=== PATIENT | male | born 1945 | race Caucasian/White ===

== ENCOUNTER 2022-01-02 13:08 | Outpatient (RCR) | payer MEDICARE, OTHER, SELFPAY ==
[2022-01-02 13:36] VITALS: BP 107/66; PULSE 67; RESP 18; TEMP 36.3; O2SAT 94
[2022-01-02] MEDS: LEUPROLIDE ACETATE 22.5 MG (SQ) SYRINGE SUBCUT (13:49)
--- NOTE | 2022-01-16 07:43 | ONC.NURNOTE ---
Authorization: User: Garima Smith Ellismitchellkhai Date: 09/29/21 15:08 Type: Eligibility Determination Note... Request received form [facility] for prior authorization of Tom [id number]. Patient carries Medicare as primary insurance. PEr CMS.gov LCD K45070 no prior authorization is required for Tom. Services are based on medical necessity and follows Medicare guidelines.
== END 2022-01-22 23:59 | disposition home or self-care (01) ==
LOC: CCIC 13:08
PROVIDERS: PCP Family Medicine; Visit Provider Clinical Nurse Specialist
DX: C61 Malignant neoplasm of prostate (principal)
CPT/HCPCS: 96372; 96401; J9217

== ENCOUNTER 2022-03-16 13:50 | Outpatient (CLI) | payer MEDICARE, OTHER, SELFPAY ==
[2022-03-16 10:24] LABS: Albumin* 3.9 g/dL (3.3-5.0)
[2022-03-16 10:25] LABS: Chloride* 105 mmol/L (96-114); Potassium* 3.6 mmol/L (3.6-5.1); Sodium* 139 mmol/L (135-149)
[2022-03-16 10:27] LABS: Aspartate Amino Transferase* 27 U/L (12-35); Bilirubin Total* 0.8 mg/dL (0.1-1.5); Blood Urea Nitrogen* 25 mg/dL (7-30); Carbon Dioxide* 25 mmol/L (20-32); Cholesterol* 105 mg/dL (90-199); Estimated Glomerular Filt Rate 78 ml/min; Total Protein* 6.7 g/dL (6.0-8.3)
[2022-03-16 10:28] LABS: Alanine Aminotransferase* 22 U/L (4-50); Alkaline Phosphatase* 57 U/L (40-150); Calcium* 9.4 mg/dL (8.4-10.6); Glucose* 113 mg/dL (60-115); HDL Cholesterol* 40 mg/dL (>=40); LDL Cholesterol Calculated 41 mg/dL (<100); Triglycerides* 119 mg/dL (40-149)
[2022-03-16 11:02] LABS: PSA Screen* < 0.06 ng/mL (0.10-4.00)
== END 2022-03-16 13:51 | disposition home or self-care (01) ==
PROVIDERS: PCP Family Medicine; Visit Provider Family Medicine
DX: Z00.00 Encounter for general adult medical examination without abnormal findings (principal); E78.5 Hyperlipidemia, unspecified; E03.9 Hypothyroidism, unspecified; N40.0 Benign prostatic hyperplasia without lower urinary tract symptoms; C61 Malignant neoplasm of prostate; I10 Essential (primary) hypertension; R73.01 Impaired fasting glucose
CPT/HCPCS: 36415; 80053; 80061; 84153; 84403; 84443

== ENCOUNTER 2022-09-18 09:43 | Emergency (ER) | payer MEDICARE, OTHER, SELFPAY ==
[2022-09-18 09:49] VITALS: BP 161/91; PULSE 76; RESP 18; TEMP 36.2; O2SAT 96; BMI 31.3
--- NOTE | 2022-09-18 10:37 | ED_ITS ---
HPI - General Adult General Chief complaint: Extremity Pain/Injury, Upper Stated complaint: R hand pain Time Seen by Provider: 09/18/22 09:50 History of Present Illness HPI narrative: This 77-year-old male comes in reporting pain, erythema, and swelling in his right wrist and hand. This began 3 days ago and has worsened since then. The erythema and swelling became more prominent just today. He does not report any injury event. He does have a remote history of gout and states that he has been taking allopurinol for more than 20 years. He has not had any flare-up of gout for a long time. Related Data Home Medications Medication Instructions Recorded Confirmed clobetasol 0.05 % topical cream 1 applic topical PRN PRN 12/29/21 06/06/22 diphenhydramine 25 1 tab PO HS 12/29/21 06/06/22 mg-acetaminophen 500 mg tablet Calcium and Vitamin D 01/02/22 06/06/22 fish oil PO 02/07/22 06/06/22 leuprolide (3 month) subcut 02/07/22 06/06/22 diphenhydramine 25 1 tab PO .hs PRN 03/21/22 06/06/22 mg-acetaminophen 500 mg tablet (Tylenol PM Extra Strength) Previous Rx's Medication Instructions Recorded allopurinol 300 mg tablet 300 mg PO .QD #90 tabs 03/22/22 aspirin 81 mg tablet,delayed 81 mg PO DAILY #90 tabs 03/22/22 release atenolol 25 mg tablet 25 mg PO DAILY #90 tabs 03/22/22 levothyroxine 100 mcg tablet 100 mcg PO DAILY #90 tabs 03/22/22 (Synthroid) rosuvastatin 20 mg tablet 20 mg PO DAILY #90 tabs 03/22/22 tamsulosin 0.4 mg capsule 0.8 mg PO DAILY #180 caps 03/22/22 hydrocodone 5 mg-acetaminophen 325 1 tab PO Q4-6H PRN pain #15 tabs 09/18/22 mg tablet methylprednisolone 4 mg tablets in See Rx Instructions PO .COMPLEX 09/18/22 a dose pack (Medrol (Antonio)) #21 ea Allergies Allergy/AdvReac Type Severity Reaction Status Date / Time No Known Drug Allergies Allergy Verified 06/06/22 11:17 Review of Systems Status of ROS: Reports: 10 or more systems reviewed and unremarkable except as noted in History and below Narrative: Constitutional: No fevers, no weight gain or loss. Eyes: No discharge. No vision changes. HENT: No congestion, no sore throat, no ear pain. Cardiovascular: No chest pain, no palpitations. Respiratory: No shortness of breath, no wheezes, no cough. Gastrointestinal: No abdominal pain, no vomiting, no diarrhea. Genitourinary: No dysuria, no hematuria. Musculoskeletal: Normal range of motion. Right hand pain and swelling. Pain is worse with movement of his fingers and wrist and minimal when remaining still. Skin: No rashes, no pruritis. Neurological: No dizziness, weakness, sensory change, speech change. Endo/Heme/Allergies: No bruising or bleeding. No polydipsia. Pysch: no suicidality, no anxiety, no insomnia. All other systems reviewed and are negative. [facility] Medical History (Updated 09/18/22 @ 10:44 by Morteza Guevara MD) History of adenomatous polyp of colon ?Z86.010 - Personal history of colonic polyps (ICD-10) History of carotid atherosclerosis ?Z86.79 - Personal history of other diseases of the circulatory system (ICD- 10) Surgical History (Updated 01/24/22 @ 10:20 by Dayna Pabon) History of carpal tunnel release ?Z98.890 - Other specified postprocedural states (ICD-10) History of cholecystectomy ?Z90.49 - Acquired absence of other specified parts of digestive tract (ICD- 10) History of colonoscopy with polypectomy ?Z98.890 - Other specified postprocedural states (ICD-10) ?Z86.010 - Personal history of colonic polyps (ICD-10) History of inguinal hernia repair ?Z98.890 - Other specified postprocedural states (ICD-10) ?Z87.19 - Personal history of other diseases of the digestive system (ICD-10) History of tonsillectomy ?Z90.89 - Acquired absence of other organs (ICD-10) Social History (Updated 02/07/22 @ 12:02 by Adrian Haskins MD) Narrative: Health care directive on file- health care directive completed on 04/08/21, reviewed and sent for scanning to medical record on 04/15/21 SOCIAL HISTORY: . Two children. 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 Minimally sexually active. He walks 4 days per week for exercise. HABITS: No tobacco or recreational drug use. Alcohol use is about 2-3 drinks per week. FAMILY HISTORY: Unchanged. Father with stroke. Mother with bile duct cancer. Grandmother with heart disease. Smoking Status: Never smoker Little interest or pleasure in doing things: not at all Feeling down, depressed, or hopeless: not at all Exam Narrative: Exam Narrative: Constitutional: Well-developed, well-nourished, no acute distress. HEENT: Normocephalic, atraumatic. Neck: Normal range of motion. Nontender. Supple. Heart: Regular. No murmurs. Normal rate. Intact distal pulses. Lungs: Clear to auscultation. No chest discomfort. No wheezes, rhonchi, or rales. Abdomen: Normal bowel sounds. Nontender. No rebound tenderness. Genitalia: Deferred. Back: No midline tenderness. Normal range of motion. Extremities: Right hand and wrist has erythema with swelling. Distinct pain with movement of these joints. Skin: Intact. No rash. Warm. No erythema or pallor. Neurologic: No altered sensation. No weakness. Alert and oriented. Psychiatric: No suicidality. No anxiety or depression. No insomnia. Nursing notes and vitals signs are reviewed. Const: Vital Signs, click to edit/add: Vital Signs - 24 hr 09/18/22 09:49 Temperature 97.1 F L Pulse Rate [Right Pulse Oximeter] 76 Respiratory Rate 18 Blood Pressure [Le ft Upper Arm] 161/91 H Pulse Oximetry 96 Oxygen Delivery Me thod Room Air Course Vital Signs Vital signs: Initial Vital Signs Temperature 97.1 F L 09/18/22 09:49 Temperature Source Temporal Artery Scan 09/18/22 09:49 Pulse Rate 76 09/18/22 09:49 Respiratory Rate 18 09/18/22 09:49 Blood Pressure 161/91 H 09/18/22 09:49 Blood Pressure Mean 114 09/18/22 09:49 Blood Pressure Position Sitting 09/18/22 09:49 Pulse Oximetry 96 09/18/22 09:49 Oxygen Delivery Method Room Air 09/18/22 09:49 Vital Signs Temperature 97.1 F L 09/18/22 09:49 Pulse Rate 76 03/27/23 09:49 Respiratory Rate 18 09/18/22 09:49 Blood Pressure 161/91 H 09/18/22 09:49 Pulse Oximetry 96 09/18/22 09:49 Oxygen Delivery Method Room Air 09/18/22 09:49 Temperature 97.1 F L 09/18/22 09:49 Pulse Rate 76 09/18/22 09:49 Respiratory Rate 18 09/18/22 09:49 Blood Pressure 161/91 H 09/18/22 09:49 Pulse Oximetry 96 09/18/22 09:49 Oxygen Delivery Method Room Air 09/18/22 09:49 Medical Decision Making MDM Narrative Medical decision making narrative: This patient comes in with pain and swelling with redness in his right wrist and hand. He has a history of gout and his symptoms today are most suspicious for a flare-up of gout. I did discuss the possibility of a cellulitis also. I also described lab and imaging options which were declined in a process of shared decision making. His symptoms are most likely a flare-up of gout and thus he received prescription for Medrol Dosepak and [place]. I did encourage him to continue with allopurinol and use ibuprofen also as needed and directed. I also describe signs and symptoms that would be more suspicious for a cellulitis at which time he should return for further evaluation and treatment. Discharge Plan Discharge Clinical Impression: Gout Patient Disposition: Home, Self-Care Condition: Stable Additional Instructions: Take medication as prescribed and needed. Follow up with MD or return if not improving or worsening symptoms happen. Prescriptions: New hydrocodone-acetaminophen 5-325 mg tablet 1 tab PO Q4-6H PRN (Reason: pain) Qty: 15 0RF methylprednisolone [Medrol (Antonio)] 4 mg tablets,dose pack See Rx Instructions .ROUTE .COMPLEX Qty: 21 0RF Rx Instructions: orally per package directions No Action diphenhydramine-acetaminophen [Tylenol PM Extra Strength] 25-500 mg tablet 1 tab PO .hs PRN fish oil PO leuprolide (3 month) subcut clobetasol 0.05 % cream 1 applic TOPICAL PRN PRN diphenhydramine-acetaminophen 25-500 mg tablet 1 tab PO HS Calcium and Vitamin D allopurinol 300 mg tablet 300 mg PO .QD Qty: 90 3RF aspirin 81 mg tablet,delayed release (DR/EC) 81 mg PO DAILY Qty: 90 3RF atenolol 25 mg tablet 25 mg PO DAILY Qty: 90 3RF rosuvastatin 20 mg tablet 20 mg PO DAILY Qty: 90 3RF levothyroxine [Synthroid] 100 mcg tablet 100 mcg PO DAILY Qty: 90 3RF tamsulosin 0.4 mg capsule 0.8 mg PO DAILY Qty: 180 3RF Follow Up/Referrals: Adrian Haskins MD [Primary Care Provider] - Stand Alone Forms: [facility] Info Instructions
[2022-09-18 10:58] VITALS: BP 161/91; PULSE 76; RESP 18; TEMP 36.2
== END 2022-09-18 10:58 | disposition home or self-care (01) ==
LOC: ED 10:44
PROVIDERS: Emergency Provider Emergency Medicine Emergency Medical Services; PCP Family Medicine
DX: M10.9 Gout, unspecified (principal)
CPT/HCPCS: 99283; 99284

== ENCOUNTER 2022-09-22 11:00 | Outpatient (RCR) | payer MEDICARE, OTHER, SELFPAY ==
[2022-03-28] MEDS: LEUPROLIDE ACETATE 22.5 MG (SQ) SYRINGE SUBCUT (11:41)
[2022-04-28 11:49] LABS: PSA Diagnostic* < 0.06 ng/mL (0.10-4.00)
--- NOTE | 2022-05-17 14:31 | ONC.NURNOTE ---
Dx: Prostate cancer
[2022-06-29 13:31] VITALS: BP 168/71; PULSE 58; RESP 16; TEMP 35; O2SAT 97
[2022-06-29] MEDS: LEUPROLIDE ACETATE 22.5 MG (SQ) SYRINGE SUBCUT (13:48)
[2022-09-07 10:01] LABS: PSA Diagnostic* < 0.06 ng/mL (0.10-4.00)
--- NOTE | 2022-09-13 17:02 | ONC.PROVNOTE ---
[facility] Provider Note Clinic Note Narrative: Treatment plan: Eligard 22.5mg subQ every 3 months Mr. Guy follows with [facility], Dr. Arcadio Enciso, for medical management of prostate cancer. Our clinic received orders for Mr. Guy to receive his next dose of eligard 22.5mg subQ injection on 09/22/22. I have entered order into EHR on behalf of Dr. Enciso based on faxed order for Mr. Guy. This will be his 4th dose, original dose given 12/2021.
[2022-09-22] MEDS: LEUPROLIDE ACETATE 22.5 MG (SQ) SYRINGE SUBCUT (11:25)
== END 2022-09-24 23:59 | disposition home or self-care (01) ==
LOC: CCIC 11:00
PROVIDERS: PCP Family Medicine; Referring Provider Family Medicine; Visit Provider Clinical Nurse Specialist
DX: C61 Malignant neoplasm of prostate (principal); Z79.818 Long term (current) use of other agents affecting estrogen receptors and estrogen levels
CPT/HCPCS: 36415; 84153; 84270; 84402; 84403; 96401; J9217

== ENCOUNTER 2022-09-29 10:55 | Outpatient (CLI) | payer MEDICARE, OTHER, SELFPAY | END 2022-09-29 10:56 | disposition home or self-care (01) | LOC: NFLDREF 09-30 08:08 | PROVIDERS: PCP Family Medicine; Referring Provider Family Medicine; Visit Provider Family Medicine | DX: M10.9 Gout, unspecified (principal) | CPT/HCPCS: 84550 ==

== ENCOUNTER 2022-12-28 13:57 | Outpatient (CLI) | payer MEDICARE, OTHER, SELFPAY ==
--- NOTE | 2022-12-28 14:00 | CRLHL7_ITS ---
For Patients: As a result of the Century Cures Act, medical imaging exams and procedure reports are released immediately into your electronic medical record. You may view this report before your referring provider. If you have questions, please contact your health care provider. DXA BONE MINERAL DENSITY STUDY Current height (in): 67.0. Weight (lb): 195.0. Menopause age: N/A Ethnicity: White. Reason for exam: History of prostate cancer. 1. Have you had a previous hip or vertebral fracture? No. 2. Have you had any fractures during your adult life which did not result from significant trauma (e.g., auto accident)? No. 3. Did either of your parents have a hip fracture? No. 4. Do you smoke? No. 5. Have you ever taken Glucocorticoids? No. 6. Do you have rheumatoid arthritis? No. 7. Do you have secondary osteoporosis? No. 8. Do you drink 3 or more alcoholic drinks per day? No. 9. Are you being treated for osteoporosis? No. 10. Have you ever taken any of the following medications: Actonel, Evista, Fosamax, Miacalcin, Reclast, Boniva, Forteo, HRT (i.e. estrogen/hormone therapy), Protelos, Prolia, Vitamin D, Calcium, other ??? please specify. ANSWER: Yes, vitamin D, calcium. 11. Do you have any of the following medical conditions: Anorexia or bulimia, asthma or emphysema, end stage renal disease, hyperparathyroidism, any seizure disorders, cancer, inflammatory bowel diseases, hysterectomy, other ??? please specify. ANSWER: Yes, cancer. 12. What was your maximum height (inches)? 68. 13. Do you perform weight bearing exercise regularly? Yes. 14. Do you regularly consume dairy products? Yes. 15. Do you drink caffeinated beverages? Yes. TECHNIQUE: Bone mineral density study was performed using the [employer]. FINDINGS: The results of the study expressed as bone mineral density (BMD) are as follows: Lumbar spine L1 to L4: BMD: 0.862 g/cm2. T-score: -2.1. Z-score: -1.0. Neck Left: BMD: 0.637 g/cm2. T-score: -2.2. Z-score: -0.7. Right: BMD: 0.613 g/cm2. T-score: -2.3. Z-score: -0.9. Total Left: BMD: 0.863 g/cm2. T-score: -1.1. Z-score: -0.1. Right: BMD: 0.835 g/cm2. T-score: -1.3. Z-score: -0.3. IMPRESSION: Osteopenia. *Comparison exams done prior to 11/2019 were performed on different unit, [employer]. COMPARISON: Compared with scan of 10/06/2021, the bone mineral density has decreased by 3.6 percent at the spine and decreased by 4.1 percent at the hip. FRAX 10-year Fracture Risk Major Osteoporotic Fracture: 9.9 percent Hip Fracture: 4.0 percent Reported Risk Factors: [place] () Neck BMD = 0.613, BMI = 30.5 Eliseo Fuller M.D. Diagnostic Radiologist [email or web address] Transcribed: 4:18 pm DW/Dictated by: Eliseo Fuller MD @ 12/28/2022 3:10:00 PM (Electronically Signed)
== END 2022-12-28 13:58 | disposition home or self-care (01) ==
LOC: RAD 13:58
PROVIDERS: PCP Family Medicine; Visit Provider Nurse Practitioner
DX: M81.0 Age-related osteoporosis without current pathological fracture (principal); M85.89 Other specified disorders of bone density and structure, multiple sites
CPT/HCPCS: 77080

== ENCOUNTER 2023-01-17 09:30 | Outpatient (RCR) | payer MEDICARE, OTHER, SELFPAY ==
--- NOTE | 2022-10-17 13:46 | URNOTE ---
Received request for prior authorization for Tom ([id number]). Pt has medicare primary. Prior authorization is not required as services are based on medical necessity and follow medicare guidelines.
[2022-12-19 10:11] VITALS: BP 121/77; PULSE 63; RESP 18; TEMP 35.9; O2SAT 95
[2023-01-17 10:35] LABS: PSA Diagnostic* < 0.06 ng/mL (0.10-4.00)
== END 2023-06-17 23:59 | disposition home or self-care (01) ==
LOC: CCIC 09:30
PROVIDERS: Nurse Practitioner; PCP Family Medicine; Referring Provider Family Medicine; Visit Provider Clinical Nurse Specialist
DX: C61 Malignant neoplasm of prostate (principal)
CPT/HCPCS: 36415; 84153; 96401; J9217

== ENCOUNTER 2023-03-22 07:31 | Outpatient (CLI) | payer MEDICARE, OTHER, SELFPAY | END 2023-03-22 07:32 | disposition home or self-care (01) | LOC: NFLDREF 03-23 10:02 | PROVIDERS: PCP Family Medicine; Referring Provider Family Medicine; Visit Provider Family Medicine | DX: E78.5 Hyperlipidemia, unspecified (principal); E03.9 Hypothyroidism, unspecified; I10 Essential (primary) hypertension | CPT/HCPCS: 80053; 80061; 84443 ==

== ENCOUNTER 2023-07-11 09:26 | Outpatient (RCR) | payer MEDICARE, OTHER, SELFPAY ==
[2023-07-11 10:53] LABS: PSA Diagnostic* < 0.06 ng/mL (0.10-4.00)
[2023-07-12 15:44] LABS: Testosterone, Adult Male <3 ng/dL (300-720)
== END 2024-01-07 23:59 | disposition home or self-care (01) ==
LOC: CCIC 09:26
PROVIDERS: PCP Family Medicine; Referring Provider Family Medicine; Visit Provider Clinical Nurse Specialist
DX: C61 Malignant neoplasm of prostate (principal)
CPT/HCPCS: 36415; 84153; 84403

== ENCOUNTER 2023-08-17 22:25 | Inpatient (IN) | payer MEDICARE, OTHER, SELFPAY ==
[2023-08-17 22:34] VITALS: BP 165/86; PULSE 102; RESP 24; TEMP 38.4; O2SAT 92; BMI 31.3
[2023-08-17 22:43] VITALS: O2SAT 96
--- NOTE | 2023-08-17 23:10 | XR_ITS ---
Patient: ASA PADILLA Facility:?[facility] Patient ID:?[id number] Site Patient ID:?[id number]. Site :?[id number] Study:?XRay-Chest PCXR-08/17/2023 11:33:43 PM Ordering Physician:REJI Final Report: INDICATION: Shortness of breath. COMPARISON: None. FINDINGS: A portable AP view of the chest was obtained. The cardiac silhouette and pulmonary vasculature are within normal limits. There is atelectasis or scarring in the left lung base. The lungs otherwise are clear. There is a large hiatal hernia. IMPRESSION: No evidence of acute pulmonary disease. Dictated by Shola Hendrix MD @ 08/18/2023 5:57:36 PM Signed by:?Shola Hendrix MD @08/18/2023 5:57:36 PM (Electronic Signature)
[2023-08-17 23:12] VITALS: PULSE 92; O2SAT 96
[2023-08-17 23:24] LABS: PCR FLU A Negative PCR FLU A (Negative); PCR FLU B Negative PCR FLU B (Negative); PCR RSV Negative PCR RSV (Negative); SARS PCR* Negative SARS-CoV-2 (Negative)
[2023-08-17 23:30] VITALS: PULSE 95; O2SAT 93
--- NOTE | 2023-08-17 23:31 | ED.SOB ---
HPI - SOB/Dyspnea General Chief Complaint: Shortness of Breath/Dyspnea Stated Complaint: shortness of breath Time Seen by Provider: 08/17/23 22:42 History of Present Illness HPI Narrative: Patient is a 78-year-old gentleman who was at a green party tonight when he developed the sudden onset of shortness of breath and chills. He describes no chest pain orthopnea PND nausea or vomiting. He was troubled by his shortness of breath as he has no underlying lung disease. He presented to the emergency room and was found to have low oxygen saturation in the low 90s. Staff to place him on oxygen per nasal cannula and he does feel better. He has otherwise not been sick or had any sick contacts. He states that he is now feeling better. He does have a temperature of a 101.1? upon arrival. Related Data Home Medications Medication Instructions Recorded Confirmed clobetasol 0.05 % topical cream 1 applic topical PRN PRN 12/29/21 08/16/23 Calcium and Vitamin D 1 tab PO BID 01/02/22 08/16/23 fish oil 2 cap PO DAILY 02/07/22 08/16/23 multivitamin 1 tab PO QDAY 10/03/22 08/16/23 ginseng 100 mg capsule 2,000 mg PO QDAY 03/14/23 08/16/23 Previous Rx's Medication Instructions Recorded allopurinol 300 mg tablet 300 mg PO DAILY #90 tabs 03/27/23 levothyroxine 100 mcg tablet 100 mcg PO DAILY #90 tabs 03/27/23 (Synthroid) metoprolol succinate 25 mg 25 mg PO QDAY #90 tabs 03/27/23 tablet,extended release 24 hr rosuvastatin 20 mg tablet 20 mg PO DAILY #90 tabs 03/27/23 tamsulosin 0.4 mg capsule 0.8 mg (2 x 0.4 mg) PO DAILY #180 03/27/23 caps metoprolol succinate 25 mg 25 mg PO QDAY #30 tabs 04/11/23 tablet,extended release 24 hr aspirin 81 mg tablet,delayed 81 mg PO DAILY #90 tabs 04/16/23 release Allergies Allergy/AdvReac Type Severity Reaction Status Date / Time No Known Drug Allergies Allergy Verified 08/17/23 22:34 Review of Systems Status of ROS: Reports: 10 or more systems reviewed and unremarkable except as noted in History and below [facility] Medical History History of carotid atherosclerosis ?Z86.79 - Personal history of other diseases of the circulatory system (ICD-10) History of adenomatous polyp of colon ?Z86.010 - Personal history of colonic polyps (ICD-10) Surgical History History of tonsillectomy ?Z90.89 - Acquired absence of other organs (ICD-10) History of inguinal hernia repair ?Z98.890 - Other specified postprocedural states (ICD-10) ?Z87.19 - Personal history of other diseases of the digestive system (ICD-10) History of colonoscopy with polypectomy ?Z98.890 - Other specified postprocedural states (ICD-10) ?Z86.010 - Personal history of colonic polyps (ICD-10) History of cholecystectomy ?Z90.49 - Acquired absence of other specified parts of digestive tract (ICD-10) History of carpal tunnel release ?Z98.890 - Other specified postprocedural states (ICD-10) Social History Narrative: Health care directive on file- health care directive completed on 04/08/21, reviewed and sent for scanning to medical record on 04/15/21 SOCIAL HISTORY: . Two children. 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 Minimally sexually active. He walks 4 days per week for exercise. HABITS: No tobacco or recreational drug use. Alcohol use is about 2-3 drinks per week. FAMILY HISTORY: Unchanged. Father with stroke. Mother with bile duct cancer. Grandmother with heart disease. What is your current living situation?: I presently have a place to live Problems where you live: no known problems In the past 12 months, utilities in danger of being shut off: no In past 12 months, lack of transportation kept you from medical appts, meetings, work, or getting things needed for daily living: no In the past 12 mos, have been you worried that your food would run out before you had money to buy more?: never true In the past 12 mos, the food you bought just didn't last and you didn't have money to buy more?: never true Smoking Status: Never smoker Do you use any of these nicotine containing products: None Second hand tobacco smoke exposure: No How often do you have a drink containing alcohol: never AUDIT-C Alcohol total score: 0 Non-prescribed substance use: denies use How often does anyone, including family, friends and others, physically hurt you: never How often does anyone, including family, friends and others, insult or talk down to you: never How often does anyone, including family, friends and others, threaten you with harm: never How often does anyone, including family, friends and others, scream or curse at you: never Little interest or pleasure in doing things: not at all Feeling down, depressed, or hopeless: not at all service: No Exam Narrative: Exam Narrative: EXAM GENERAL: Patient appears comfortable and well. EYES: No scleral icterus. LYMPH: No supraclavicular or cervical lymphadenopathy. SKIN: Visible skin seen during exam normal or with benign process only. EXT: No dependent lower extremity pedal edema. HEART: Regular rate and rhythm with no murmurs, rubs, or gallops. LUNGS: Clear to auscultation bilaterally with no crackles or wheezes. ABD: Soft, non tender, non distended. PSYCH: Good eye contact, speech is not pressured. Const: Vital Signs, click to edit/add: Vital Signs - 24 hr 08/17/23 22:34 08/17/23 22:43 08/17/23 22:43 Temperature 101.1 F H Pulse Rate Pulse Rate [Right Pulse Oximeter] 102 H Respiratory Rate 24 Blood Pressure Blood Pressure [Ri t Upper Arm] 165/86 H Pulse Oximetry 92 96 96 Oxygen Delivery Me thod Room Air Nasal Cannula Oxygen Flow Rate 3 08/17/23 23:12 08/17/23 23:30 08/17/23 23:32 Temperature Pulse Rate 92 95 92 Pulse Rate [Right Pulse Oximeter] Respiratory Rate Blood Pressure 146/80 H Blood Pressure [Ri t Upper Arm] Pulse Oximetry 96 93 94 Oxygen Delivery Me thod Nasal Cannula Oxygen Flow Rate 2 08/18/23 00:00 08/18/23 00:02 08/18/23 00:03 Temperature Pulse Rate 97 96 95 Pulse Rate [Right Pulse Oximeter] Respiratory Rate Blood Pressure 141/65 H Blood Pressure [Ri ght Upper Arm] Pulse Oximetry 92 92 93 Oxygen Delivery Me thod Nasal Cannula Oxygen Flow Rate 2 08/18/23 00:30 08/18/23 00:32 08/18/23 00:35 Temperature 100 F H Pulse Rate 95 95 Pulse Rate [Right Pulse Oximeter] Respiratory Rate Blood Pressure 127/70 Blood Pressure [Ri ght Upper Arm] Pulse Oximetry 91 91 Oxygen Delivery Me thod Oxygen Flow Rate 08/18/23 01:30 08/18/23 01:38 Temperature 100 F H Pulse Rate 90 Pulse Rate [Right Pulse Oximeter] Respiratory Rate 22 Blood Pressure 135/78 Blood Pressure [Ri ght Upper Arm] Pulse Oximetry 93 Oxygen Delivery Me thod Oxygen Flow Rate Course Course ED Course: Patient seen examined. EKG shows no acute abnormalities upon my review. Chest x-ray upon my review is normal. Viral swabs are negative for acute infection with COVID influenza or RSV. Lab work is pending. Will be giving him a DuoNeb. Vital Signs Vital signs: Initial Vital Signs Temperature 101.1 F H 08/17/23 22:34 Temperature Source Temporal Artery Scan 08/17/23 22:34 Pulse Rate 102 H 08/17/23 22:34 Pulse Rhythm Regular 08/17/23 22:34 Pulse Strength 3+ Normal 08/17/23 22:34 Respiratory Rate 24 08/17/23 22:34 Blood Pressure 165/86 H 08/17/23 22:34 Blood Pressure Mean 112 H 08/17/23 22:34 Blood Pressure Position Supine 08/17/23 22:34 Pulse Oximetry 92 08/17/23 22:34 Oxygen Delivery Method Room Air 08/17/23 22:34 Vital Signs Temperature 101.1 F H 08/17/23 22:34 Pulse Rate 102 H 08/17/23 22:34 Respiratory Rate 24 08/17/23 22:34 Blood Pressure 165/86 H 08/17/23 22:34 Pulse Oximetry 92 08/17/23 22:34 Oxygen Delivery Method Room Air 08/17/23 22:34 Temperature 100 F H 08/18/23 01:38 Pulse Rate 90 08/18/23 01:30 Respiratory Rate 22 08/18/23 01:30 Blood Pressure 135/78 08/18/23 01:30 Pulse Oximetry 93 08/18/23 01:30 Oxygen Delivery Method Nasal Cannula 08/18/23 00:00 Oxygen Flow Rate 2 08/18/23 00:00 Medications Administered Medications: Generic Name Dose Route Start Last Admin Trade Name Lisa PRN Reason Stop Dose Admin Acetaminophen 1,000 mg 08/18/23 00:02 08/18/23 00:09 Acetaminophen 500 Mg Tablet PO 08/18/23 00:03 1,000 mg ONCE ONE Administration Albuterol/Ipratropium 1 neb 08/17/23 23:30 08/17/23 23:38 Iprat-Albut 0.5-2.5 Mg/3 Ml Neb IH 08/17/23 23:31 1 neb ONCE ONE Administration Sodium Chloride 1,000 mls @ 1,000 mls/hr 08/18/23 00:27 08/18/23 01:33 0.9 % Sodium Chloride 1000 Ml IV 08/18/23 01:26 Infused .Q1H VAIBHAV Infusion Piperacillin Sod/Tazobactam 100 mls @ 200 mls/hr 08/18/23 00:34 08/18/23 01:38 Sod 3.375 gm/ Sodium Chloride IVPB 08/18/23 00:35 Infused ONCE ONE Infusion Potassium Chloride 20 meq 08/18/23 00:17 08/18/23 00:35 Potassium Chloride 10 Meq Capsule Er PO 08/18/23 00:18 20 meq ONCE ONE Administration MDM - SOB/Dyspnea MDM Narrative Medical decision making narrative: Patient is a 78-year-old gentleman who developed the abrupt onset of fevers chills and shortness of breath. Came to the emergency room with a pulse of roughly 100 temperature of 101?. He had an EKG showing no acute ST or T-wave changes. He did have an elevated D-dimer and I did do a follow-up CT of the chest PE protocol which was negative for pulmonary embolism as well as pneumonia. Because of his fever I did culture his blood. Urine was unremarkable. Lyme the rest his laboratory studies looked reasonable with the exception of a troponin of 0.33. I did call and discuss the case with Cardiology they did not recommend any medication changes or transfer but simply to place the patient on telemetry treat his fever and trend his troponin. This time cares transferred to the hospitalist of note I did begin replacement of his mild hypokalemia with oral potassium. Differential diagnosis includes but not limited to sepsis pneumonia urinary tract infection meningitis cellulitis abscess non STEMI Lab Data Labs: Lab Results 08/17/23 08/17/23 08/17/23 Range/Units 22:41 23:10 23:27 WBC 4.61 (4.50-11.00) K/uL RBC 4.34 (4.30-5.90) m/uL Hgb 13.6 (13.5-17.5) gm/dL Hct 39.8 (37.0-53.0) % MCV 92 (80-100) fL MCH 31 (26-34) pg MCHC 34 (32-36) gm/dL RDW Coeff of Russ 13.4 (11.5-15.5) % Plt Count 151 (140-440) K/uL Neut % (Auto) 95.5 H (42.0-72.0) % Lymph % (Auto) 2.8 L (20-44) % [place] % (Auto) 0.4 (0.0-11.0) % Eos % (Auto) 0.2 (0.0-7.0) % Baso % (Auto) 0.2 (0.0-3.0) % Neut # (Auto) 4.40 (1.7-7.0) K/uL Lymph # (Auto) 0.10 L (0.90-2.90) K/uL [place] # (Auto) 0.00 (0.00-0.90) K/UL Eos # (Auto) 0.01 (0.00-0.50) K/uL Baso # (Auto) 0.01 (0.00-0.30) K/uL Abs Immat Gran (auto) 0.04 (0.00-0.30) K/uL Imm/Tot Granulo (auto) 0.9 % D-Dimer Quant (PE/DVT) 2.32 H (0.00-0.50) ug/ml Sodium 136 (135-149) mmol/L Potassium 2.9 L* (3.6-5.1) mmol/L Chloride 106 (96-114) mmol/L Carbon Dioxide 19 L (20-32) mmol/L Anion Gap 11 (7-15) mEq/L BUN 24 (7-30) mg/dL Creatinine 0.9 (0.5-1.5) mg/dL Estimated Creat Clear 56.00 Estimated GFR 87 ml/min Glucose 165 H (60-115) mg/dL Lactate 2.0 H (0.5-1.9) mmol/L Calcium 9.0 (8.4-10.6) mg/dL Troponin I 0.33 H* (0.01-0.04) ng/mL Urine Color (Yellow) Urine Appearance (Clear) Urine pH (5.0-8.5) Ur Specific [place] (1.000-1.030) Urine Protein (Negative) Urine Glucose (UA) (Negative) Urine Ketones (Negative) Urine Blood (Negative) Urine Nitrite (Negative) Urine Bilirubin (Negative) Urine Urobilinogen (0.2-1.0) Ur Leukocyte Esterase (Negative) SARS-CoV-2 (PCR) Negative SARS-CoV-2 (Negative) Influenza Type A (PCR) Negative PCR FLU A (Negative) Influenza Type B (PCR) Negative PCR FLU B (Negative) RSV (PCR) Negative PCR RSV (Negative) 08/18/23 Range/Units 00:27 WBC (4.50-11.00) K/uL RBC (4.30-5.90) m/uL Hgb (13.5-17.5) gm/dL Hct (37.0-53.0) % MCV (80-100) fL MCH (26-34) pg MCHC (32-36) gm/dL RDW Coeff of Russ (11.5-15.5) % Plt Count (140-440) K/uL Neut % (Auto) (42.0-72.0) % Lymph % (Auto) (20-44) % [place] % (Auto) (0.0-11.0) % Eos % (Auto) (0.0-7.0) % Baso % (Auto) (0.0-3.0) % Neut # (Auto) (1.7-7.0) K/uL Lymph # (Auto) (0.90-2.90) K/uL [place] # (Auto) (0.00-0.90) K/UL Eos # (Auto) (0.00-0.50) K/uL Baso # (Auto) (0.00-0.30) K/uL Abs Immat Gran (auto) (0.00-0.30) K/uL Imm/Tot Granulo (auto) % D-Dimer Quant (PE/DVT) (0.00-0.50) ug/ml Sodium (135-149) mmol/L Potassium (3.6-5.1) mmol/L Chloride (96-114) mmol/L Carbon Dioxide (20-32) mmol/L Anion Gap (7-15) mEq/L BUN (7-30) mg/dL Creatinine (0.5-1.5) mg/dL Estimated Creat Clear Estimated GFR ml/min Glucose (60-115) mg/dL Lactate (0.5-1.9) mmol/L Calcium (8.4-10.6) mg/dL Troponin I (0.01-0.04) ng/mL Urine Color Yellow (Yellow) Urine Appearance Clear (Clear) Urine pH 5.5 (5.0-8.5) Ur Specific [place] 1.015 (1.000-1.030) Urine Protein Negative (Negative) Urine Glucose (UA) Negative (Negative) Urine Ketones Negative (Negative) Urine Blood Negative (Negative) Urine Nitrite Negative (Negative) Urine Bilirubin Negative (Negative) Urine Urobilinogen 0.2 (0.2-1.0) Ur Leukocyte Esterase Negative (Negative) SARS-CoV-2 (PCR) (Negative) Influenza Type A (PCR) (Negative) Influenza Type B (PCR) (Negative) RSV (PCR) (Negative) Discharge Plan Discharge Clinical Impression: Fever Patient Disposition: Admitted As Observation Condition: Stable Activity Level: No Restrictions Discharge Diet: Regular Prescriptions: No Action allopurinol 300 mg tablet 300 mg PO DAILY Qty: 90 3RF levothyroxine [Synthroid] 100 mcg tablet 100 mcg PO DAILY Qty: 90 3RF metoprolol succinate 25 mg tablet extended release 24 hr 25 mg PO QDAY Qty: 90 3RF rosuvastatin 20 mg tablet 20 mg PO DAILY Qty: 90 3RF tamsulosin 0.4 mg capsule 0.8 mg PO DAILY Qty: 180 3RF ginseng 100 mg capsule 2,000 mg PO QDAY fish oil 2 cap PO DAILY multivitamin Tablet 1 tab PO QDAY clobetasol 0.05 % cream 1 applic TOPICAL PRN PRN Calcium and Vitamin D 1 tab PO BID metoprolol succinate 25 mg tablet extended release 24 hr 25 mg PO QDAY Qty: 30 0RF aspirin 81 mg tablet,delayed release (/EC) 81 mg PO DAILY Qty: 90 3RF Follow Up/Referrals: Adrian Haskins MD [Primary Care Provider] -
[2023-08-17 23:32] VITALS: BP 146/80; PULSE 92; O2SAT 94
[2023-08-17] MEDS: IPRAT-ALBUT 0.5-2.5 MG/3 ML NEB 1 NEB IH (23:38)
[2023-08-17 23:45] LABS: Basophils Absolute Auto 0.01 K/uL (0.00-0.30); Basophils Percent Auto 0.2 % (0.0-3.0); Eosinophils Absolute Auto 0.01 K/uL (0.00-0.50); Eosinophils Percent Auto 0.2 % (0.0-7.0); Hematocrit 39.8 % (37.0-53.0); Hemoglobin* 13.6 gm/dL (13.5-17.5); Immature Granulocytes Abs Auto 0.04 K/uL (0.00-0.30); Immature Granulocytes Pct Auto 0.9 %; Lymphocytes Percent Auto 2.8 % (20-44); Mean Corpuscular HGB Conc 34 gm/dL (32-36); Mean Corpuscular Hemoglobin 31 pg (26-34); Mean Corpuscular Volume 92 fL (80-100); Monocytes Percent Auto 0.4 % (0.0-11.0); Neutrophils Percent Auto 95.5 % (42.0-72.0); Platelet Count* 151 K/uL (140-440); RDW Coefficient of Variation % 13.4 % (11.5-15.5); Red Blood Count 4.34 m/uL (4.30-5.90); White Blood Count* 4.61 K/uL (4.50-11.00)
[2023-08-17 23:46] LABS: Slide Review Reflex No
[2023-08-17 23:57] LABS: Chloride* 106 mmol/L (96-114); Sodium* 136 mmol/L (135-149)
[2023-08-18] VITALS (20 sets, daily range): BP systolic 117–176; BP diastolic 63–87; PULSE 70–97; RESP 16–22; TEMP 36.5–38.4; O2SAT 91–98; BMI 32.6
[2023-08-18] LABS: Blood Urea Nitrogen* 24 mg/dL (7-30); Carbon Dioxide* 19 mmol/L (20-32); Creatinine* 0.9 mg/dL (0.5-1.5); Estimated Glomerular Filt Rate 87 ml/min
[2023-08-18 00:01] LABS: Glucose* 165 mg/dL (60-115)
[2023-08-18] MEDS: ACETAMINOPHEN 500 MG TABLET 1000 MG PO (00:09)
[2023-08-18 00:12] LABS: D Dimer Quantitative* 2.32 ug/ml (0.00-0.50)
[2023-08-18 00:16] LABS: Anion Gap 11 mEq/L (7-15); Potassium* 2.9 mmol/L (3.6-5.1); Troponin I* 0.33 ng/mL (0.01-0.04)
[2023-08-18] MEDS: 0.9 % SODIUM CHLORIDE 1000 ml 1,000 ML IV (00:30)
[2023-08-18] MEDS: POTASSIUM CHLORIDE 10 MEQ CAPSULE ER 20 MEQ PO (00:35)
--- NOTE | 2023-08-18 00:39 | CT_ITS ---
Patient: ASA PADILLA Facility:?[facility] R[facility] Patient ID:?[id number] Site Patient ID:?[id number] Site :?[id number] Study:?CT-Chest CHEST PE PROTOCOL W/95CC [id number]/[id number] 1:13:21 AM Ordering Physician:REJI Final Report: INDICATION: Elevated D-dimer. TECHNIQUE: CT chest PE was acquired with 100 cc Omnipaque 350 IV contrast. COMPARISON: Chest radiograph 08/17/2023. FINDINGS: Heart and vasculature: Contrast opacification of the pulmonary arterial tree is adequate. No sign of pulmonary embolism. Heart size is normal. Thoracic aorta and pulmonary artery are normal in caliber.Mild mitral annulus calcification. Lungs and pleura: 7 mm pleural-based nodule in the left upper lobe (8/54). Mild bibasilar bronchiectasis. Partial collapse/atelectasis of the medial base of the left lower lobe secondary to mass effect from a large hiatal hernia. No pleural effusion or pneumothorax. Lymph nodes/mediastinum: No mediastinal, hilar, or axillary adenopathy. Large hiatal hernia containing the majority of the stomach. Chest wall: No masses. Upper abdomen: No acute or significant findings. Prior cholecystectomy. Diverticulosis Bones: Unremarkable for age. IMPRESSION: 1. No pulmonary embolism. No acute findings in the chest. 2. Large hiatal hernia with associated partial collapse/atelectasis the medial base of the left lower lobe secondary to mass effect. 3. 7 mm pleural-based pulmonary nodule in the left upper lobe. Recommend follow- up chest CT in 6-12 months. Please note that all CT scans at this facility use dose modulation, iterative reconstruction, and/or weight-based dosing when appropriate to reduce radiation dose to as low as reasonably achievable. Dictated by Sriram Gunn MD @ 08/18/2023 1:35:13 AM Signed by:?Sriram Gunn MD @08/18/2023 1:35:13 AM (Electronic Signature)
[2023-08-18 01:05] LABS: Appearance Urine Clear (Clear); Bilirubin Urine Negative (Negative); Blood Urine Negative (Negative); Color Urine Yellow (Yellow); Glucose Urine Negative (Negative); Ketones Urine Negative (Negative); Leukocyte Esterase Urine Negative (Negative); Nitrite Urine Negative (Negative); Protein Urine Negative (Negative); Specific Gravity Urine 1.015 (1.000-1.030); Urobilinogen Urine 0.2 (0.2-1.0); pH Urine 5.5 (5.0-8.5)
[2023-08-18] MEDS: PIPERACILLIN/TAZOBACTAM 3.375 GM in 0.9 % SODIUM CHLORIDE Mini-bag 100 ML IVPB ×4 (01:05→23:49)
--- NOTE | 2023-08-18 02:52 | W.PM.TELEH&P ---
Telehealth- H&P: HPI History of Present Illness Date Seen: 08/18/23 Chief complaint: shortness of breath Narrative: Declan Guy is seen as an Interactive Telehealth visit. Declan Guy is a 78 year old male who Has a past medical history notable for hypertension, hyperlipidemia, hypothyroidism, prior stroke, gout, prostate cancer who presented for evaluation of fevers The patient was at a birthday alliance party and just near the end of the alliance party he developed shaking chills and felt unwell with some dyspnea. He has had a mild cough but he attributes this to postnasal drip which is chronic. He did not have any worsening rhinorrhea. Has not had any nausea or vomiting. He did have some mild left lower quadrant pain for the last day or so. He thought it was gas pain and it did get better after having a bowel movement today. He does notice he has been getting short of breath with activity like going up stairs over the last month or so but he reports that it really does not impact his overall function. in the ER he had some mild chest tightness, he thought it was musculoskeletal. He did not notice any other symptoms. In the ER he had workup for evaluation of source of infection. Chest x-ray showed no acute infiltrate. UA showed no evidence of infection. He did not have any headache or nuchal rigidity. SARS-CoV-2, RSV, influenza PCR's were all negative. Blood cultures were obtained and he was given a dose of Zosyn. He was incidentally found to have an elevated troponin at 0.33. He was also noted to have hypokalemia with a potassium of 2.9. Review of Systems Status of ROS: Reports: 10 or more systems reviewed and unremarkable except as noted in History and below [facility] Medical History History of carotid atherosclerosis ?Z86.79 - Personal history of other diseases of the circulatory system (ICD-10) History of adenomatous polyp of colon ?Z86.010 - Personal history of colonic polyps (ICD-10) Surgical History History of tonsillectomy ?Z90.89 - Acquired absence of other organs (ICD-10) History of inguinal hernia repair ?Z98.890 - Other specified postprocedural states (ICD-10) ?Z87.19 - Personal history of other diseases of the digestive system (ICD-10) History of colonoscopy with polypectomy ?Z98.890 - Other specified postprocedural states (ICD-10) ?Z86.010 - Personal history of colonic polyps (ICD-10) History of cholecystectomy ?Z90.49 - Acquired absence of other specified parts of digestive tract (ICD-10) History of carpal tunnel release ?Z98.890 - Other specified postprocedural states (ICD-10) Social History Narrative: Health care directive on file- health care directive completed on 04/08/21, reviewed and sent for scanning to medical record on 04/15/21 SOCIAL HISTORY: . Two children. 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 Minimally sexually active. He walks 4 days per week for exercise. HABITS: No tobacco or recreational drug use. Alcohol use is about 2-3 drinks per week. FAMILY HISTORY: Unchanged. Father with stroke. Mother with bile duct cancer. Grandmother with heart disease. What is your current living situation?: I presently have a place to live Problems where you live: no known problems Problems where you live details: none In the past 12 months, utilities in danger of being shut off: no In past 12 months, lack of transportation kept you from medical appts, meetings, work, or getting things needed for daily living: no In the past 12 mos, have been you worried that your food would run out before you had money to buy more?: never true In the past 12 mos, the food you bought just didn't last and you didn't have money to buy more?: never true Highest level of school completed/degree received: Bachelor's degree Smoking Status: Never smoker Do you use any of these nicotine containing products: None Second hand tobacco smoke exposure: No How often do you have a drink containing alcohol: 2-3 times a week Alcohol type: beer and wine How many standard drinks containing alcohol do you have on a typical day: 1 or 2 How often do you have six or more drinks on one occasion: Never AUDIT-C Alcohol total score: 3 Non-prescribed substance use: over the counter (eg: immodium) Non-prescribed substance use details: supplements Caffeine: Yes How often does anyone, including family, friends and others, physically hurt you: never How often does anyone, including family, friends and others, insult or talk down to you: never How often does anyone, including family, friends and others, threaten you with harm: never How often does anyone, including family, friends and others, scream or curse at you: never Little interest or pleasure in doing things: not at all Feeling down, depressed, or hopeless: not at all service: No Meds Home Medications and Allergies Home Medications Medication Instructions Recorded Confirmed Type clobetasol 0.05 % topical cream 1 applic topical PRN PRN 12/29/21 08/16/23 History Calcium and Vitamin D 1 tab PO BID 01/02/22 08/16/23 History fish oil 2 cap PO DAILY 02/07/22 08/16/23 History multivitamin 1 tab PO QDAY 10/03/22 08/16/23 History ginseng 100 mg capsule 2,000 mg PO QDAY 03/14/23 08/16/23 History Allergies Allergy/AdvReac Type Severity Reaction Status Date / Time No Known Drug Allergies Allergy Verified 08/17/23 22:34 Exam Narrative Exam Narrative: Physical Exam GENERAL: ?vital signs reviewed, well developed and nourished, in no distress HEENT: pupils are equal round and reactive to light, extraocular movements are grossly within normal limits and oral mucosa is moist. NECK: Supple without lymphadenopathy or thyromegaly according to nursing staff examination observation HEART: Regular rate and rhythm without any rubs, murmurs, or gallops. LUNGS: Clear to auscultation bilaterally with good air movement throughout ABDOMEN: Observation from nurse assisted exam, abdomen appears soft, Minimally tender in the left lower quadrant, and nondistended with Positive bowel sounds noted. EXTREMITIES: Strength and sensation is observed to be grossly within normal limits in the upper and lower extremities.? No focal strength deficit is observed. SKIN:? Observed warm and dry with color normal Const Vital Signs, click to edit/add: Vital Signs - 24 hr 08/17/23 22:34 08/17/23 22:43 08/17/23 22:43 Temperature 101.1 F H Pulse Rate Pulse Rate [Pulse Oximeter] Pulse Rate [Right Pulse Oximeter] 102 H Respiratory Rate 24 Blood Pressure Blood Pressure [Right Upper Arm] 165/86 H Pulse Oximetry 92 96 96 Oxygen Delivery Method Room Air Nasal Cannula Oxygen Flow Rate 3 08/17/23 23:12 08/17/23 23:30 08/17/23 23:32 Temperature Pulse Rate 92 95 92 Pulse Rate [Pulse Oximeter] Pulse Rate [Right Pulse Oximeter] Respiratory Rate Blood Pressure 146/80 H Blood Pressure [Right Upper Arm] Pulse Oximetry 96 93 94 Oxygen Delivery Method Nasal Cannula Oxygen Flow Rate 2 08/18/23 00:00 08/18/23 00:02 08/18/23 00:03 Temperature Pulse Rate 97 96 95 Pulse Rate [Pulse Oximeter] Pulse Rate [Right Pulse Oximeter] Respiratory Rate Blood Pressure 141/65 H Blood Pressure [Right Upper Arm] Pulse Oximetry 92 92 93 Oxygen Delivery Method Nasal Cannula Oxygen Flow Rate 2 08/18/23 00:30 08/18/23 00:32 08/18/23 00:35 Temperature 100 F H Pulse Rate 95 95 Pulse Rate [Pulse Oximeter] Pulse Rate [Right Pulse Oximeter] Respiratory Rate Blood Pressure 127/70 Blood Pressure [Right Upper Arm] Pulse Oximetry 91 91 Oxygen Delivery Method Oxygen Flow Rate 08/18/23 01:30 08/18/23 01:32 08/18/23 01:38 Temperature 100 F H Pulse Rate 90 89 Pulse Rate [Pulse Oximeter] Pulse Rate [Right Pulse Oximeter] Respiratory Rate 22 20 Blood Pressure 135/78 117/78 Blood Pressure [Right Upper Arm] Pulse Oximetry 93 93 Oxygen Delivery Method Oxygen Flow Rate 08/18/23 02:02 08/18/23 02:19 Temperature 99.6 F Pulse Rate 90 Pulse Rate [Pulse Oximeter] 81 Pulse Rate [Right Pulse Oximeter] Respiratory Rate 22 20 Blood Pressure 122/63 Blood Pressure [Right Upper Arm] Pulse Oximetry 93 92 Oxygen Delivery Method Room Air Oxygen Flow Rate 0 Hospitalist - H&P: Result Labs Labs: Short CBC 08/17/23 Range/Units 23:27 WBC 4.61 (4.50-11.00) K/uL Hgb 13.6 (13.5-17.5) gm/dL Hct 39.8 (37.0-53.0) % Plt Count 151 (140-440) K/uL BMP 08/17/23 23:10 Sodium 136 Potassium 2.9 L* Chloride 106 Carbon Dioxide 19 L BUN 24 Creatinine 0.9 Glucose 165 H Calcium 9.0 Cardiac Enzymes 08/17/23 Range/Units 23:10 Troponin I 0.33 H* (0.01-0.04) ng/mL Urine 08/18/23 Range/Units 00:27 Urine Color Yellow (Yellow) Urine Appearance Clear (Clear) Urine pH 5.5 (5.0-8.5) Ur Specific Olar 1.015 (1.000-1.030) Urine Protein Negative (Negative) Urine Glucose (UA) Negative (Negative) Assessment and Plan Assessment and plan (1) Fever: Status: Acute (2) Gout: Status: Acute (3) Hypothyroidism: Status: Acute (4) Hypertension: Status: Acute (5) Chronic kidney disease: Status: Acute (6) Cerebrovascular accident (CVA) of right thalamus: Status: Acute (7) Prostate cancer: Status: Acute (8) Elevated troponin: Status: Acute Plan Fever No leukocytosis Blood cultures pending UA without signs of infection Negative influenza, RSV, COVID Chest x-ray personally reviewed: No focal opacities CTA of the chest Personally reviewed: No evidence of pneumonia or pulmonary embolism Mild left lower quadrant pain, history of diverticulitis which may be the source of fever If continued abdominal pain would consider CT of the abdomen Continue Zosyn while blood cultures are pending Alternatively he may have viral syndrome Check procalcitonin, if negative may favor viral syndrome Elevated troponin Unclear if type II [place] versus type I Did have some mild chest pressure, and retrospectively patient did notice some decrease stamina recently Monitor on telemetry Continue to trend troponin Initial EKG personally reviewed: Sinus rhythm with inferior Q waves with no ST elevation Continue aspirin and statin Continue beta-michaela when verified ER did discuss the case with [facility]ology who recommended continued observation check A1c and lipid panel Consider outpatient versus inpatient stress test Gout Continue allopurinol Prior history of stroke No significant residual deficits but does suggest that he has baseline ASCVD thus may be at high risk for coronary artery disease Hypertension Continue home medications when verified Hyperlipidemia Continue home medications when verified full code confirmed on admission Telehealth: Statement Statement Telehealth Visit: Today's History and Physical is provided via interactive telehealth by Robe John MD.? Patient is located at [facility].? Provider is located at [facility].? Nursing staff assisted with the patient's exam. The visit being done today meets criteria for a telehealth visit and the patient or patient?s parent/guardian is aware the visit is a telehealth visit. Camera Start Time: 02:58 Camera End Time: 03:12
[2023-08-18 05:44] LABS: Hemoglobin A1C* 6.1 % (0-5.6)
--- NOTE | 2023-08-18 05:54 | PC.NURSE ---
Pt arrived to floor shorty after 0200, denied sob/difficulty breathing or chills. states tightness across the chest. SBA to br x2, tolerating PO intake, slept well remainder of night.
[2023-08-18 07:21] LABS: Basophils Percent Auto 0.1 % (0.0-3.0); Hematocrit 35.9 % (37.0-53.0); Hemoglobin* 12.3 gm/dL (13.5-17.5); Immature Granulocytes Pct Auto 0.2 %; Lymphocytes Percent Auto 2.9 % (20-44); Mean Corpuscular HGB Conc 34 gm/dL (32-36); Mean Corpuscular Hemoglobin 31 pg (26-34); Mean Corpuscular Volume 92 fL (80-100); Monocytes Percent Auto 4.5 % (0.0-11.0); Neutrophils Percent Auto 92.3 % (42.0-72.0); Platelet Count* 163 K/uL (140-440); RDW Coefficient of Variation % 13.5 % (11.5-15.5); Red Blood Count 3.92 m/uL (4.30-5.90)
[2023-08-18 07:26] LABS: Slide Review Reflex No
[2023-08-18 07:42] LABS: Cholesterol* 70 mg/dL (90-199)
[2023-08-18 07:43] LABS: HDL Cholesterol* 37 mg/dL (>=40); LDL Cholesterol Calculated 24 mg/dL (<100); Magnesium* 1.7 mg/dL (1.5-2.6); Triglycerides* 46 mg/dL (40-149)
[2023-08-18 08:12] LABS: Troponin I* 0.74 ng/mL (0.01-0.04)
[2023-08-18] MEDS: SODIUM CHLORIDE 0.9 % (FLUSH) 10 ML SYRINGE 5 ML IVF ×2 (08:48→20:10)
[2023-08-18] MEDS: ASPIRIN 81 MG TAB.CHEW PO (08:48)
[2023-08-18 09:01] LABS: Albumin* 3.3 g/dL (3.3-5.0); Chloride* 108 mmol/L (96-114)
[2023-08-18 09:02] LABS: Potassium* 3.5 mmol/L (3.6-5.1); Sodium* 137 mmol/L (135-149)
[2023-08-18 09:04] LABS: Creatinine* 1.1 mg/dL (0.5-1.5); Est. Creatinine Clearance* 50.91; Estimated Glomerular Filt Rate 68 ml/min
[2023-08-18 09:05] LABS: Alanine Aminotransferase* 24 U/L (4-50); Alkaline Phosphatase* 65 U/L (40-150); Anion Gap 11 mEq/L (7-15); Aspartate Amino Transferase* 35 U/L (12-35); Blood Urea Nitrogen* 20 mg/dL (7-30); Calcium* 8.8 mg/dL (8.4-10.6); Carbon Dioxide* 18 mmol/L (20-32); Glucose* 148 mg/dL (60-115); Total Protein* 6.2 g/dL (6.0-8.3)
[2023-08-18 09:08] LABS: C Reactive Protein* 3.5 mg/dL (0.5-1.0)
[2023-08-18 09:18] LABS: HCO3 VBG 23 mmol/L (21-28); Lactate* 3.6 mmol/L (0.5-1.9); PCO2 VBG 37 mmHG (40-50); PO2 VBG 38.8 mmHG (25-47); pH VBG 7.394 (7.32-7.43)
[2023-08-18] MEDS: POTASSIUM CHLORIDE 10 MEQ CAPSULE ER 40 MEQ PO (09:27)
[2023-08-18 10:00] LABS: Troponin I* 0.61 ng/mL (0.01-0.04)
--- NOTE | 2023-08-18 11:25 | PM.IMPN1 ---
Progress Note: A&P Assessment and plan (1) Sepsis: Problem details: elevated temp, HR and RR upon arrival to the ED. lactate elevated at 2.0 and increasing over night source unclear Zosyn and vancomycin ongoing 08/17 IVF bolus and maintenance UC and BC CTA chest reviewed. ordering CT A/P, echo, strep pneumonia, MRSA, legionella. Resp PCR negative. No ongoing rigors or symptoms. no skin or joint concerns. Status: Acute (2) NSTEMI (non-ST elevated myocardial infarction): Problem details: troponin elevated, peaked and is now downtrending. echo ordered. reviewed previous echo in 2019 (when he had a stroke) ECG from 2019 and this admission show new changes (incomplete RBBB and prolonged QT now) Ischemic symptoms: mild SOB reported on arrival tx: aspirin and beta-blockade. holding on DAPT until infection is sorted out and troponin is down trending and patient feels improved. Status: Acute (3) Fever: Problem details: tmax 101.1 on broad spectrum abx awaiting echo (no new murmur) and CT AP Status: Acute (4) Hypertension: Problem details: metoprolol monotherapy, will continue and cover with additional doses of IVP metoprolol Status: Acute (5) Chronic kidney disease: Problem details: GFR 68, creat 1.1 Status: Acute (6) Hiatal hernia: Problem details: large, compressive atelactasis. known. Status: Acute (7) Paronychia of right thumb: Problem details: previously identified and treated with topical 07/09/23 Status: Acute Subjective Date Seen: 08/18/23 Interval history: Daily Progress Note - Hospital #: 2 CC: rigors, concern for bacteremia - sepsis. elevated Troponin, consistent with demand ischemia. OVERNIGHT UPDATES FROM STAFF & MED, LAB, IMAGING UPDATES -reviewed H/P. Given 1 dose of Zosyn in the ED - admitting team missed continuing this medication. -procalcitonin markedly elevated at 26.6, CRP 3.5. No urine culture obtained. -WBC this morning elevated to 11.9 from 4.6 at ED eval. 92% neutrophils. -gas normal this am -potassium improved to 3.5 from 2.9 -bicarb depressed 19-->18 -A1C 6.1 -lactate is going up 2.0 -->3.6 (ordered bolus) -troponin 0.33 --> 0.74 --> 0.61 -EKG: nonspecific changes in the inferior leads; prolonged QT. No exchange underwriting consultant several hours. When compared to 2019 - these nonspecific changes are new. -reviewed CTA imaging, labs from admission -NGTD: blood culture x 2 and urine culture. -MRSA pending -echo ordered/pending -CT ab/pelvis ordered/pending Objective: Vitals: see above Lungs: Clear. Cardiac: S1S2. Disposition/Potential discharge - Likely to return to previous living situation. Today I spent 50minutes seeing the patient, reviewing Expanse and EPIC notes/diagnostics, discussing the care plan with our care time that includes social work, PT/OT, pharmacy, RT, fdc and documenting my impressions and plan in the medical record. Prolonged Physician Services G0316 ([facility]) in conjunction with: 17610 (subsequent visit; 50 mins + 15 mins prolonged services = 65 mins total) I then went back for 15 mins to discuss the findings of ..... Alcohol 61702 >30 mins. We went over all the stigmata of alcoholism I see in this patient. I discussed the effects of chronic alcohol on the brain, liver, and heart. I recommended complete abstinence from alcohol and instructed on programs available at discharge from acute care. Smoking/Tobacco 04405 >10 mins. I went over the clinical stigmata of chronic tobacco use on the body. I explained the effect on the vasculature, lungs, heart, skin. I recommended complete abstinence from tobacco products and instructed on programs available at discharge from acute care. ACP first 30 mins 61807 I went over options for care during this current hospitalization and explained the difference between palliative care and hospice care. I described the likelihood of returning to previous functioning and what the options are going forward for care. Exam Const: Vital Signs, click to edit/add: Vital Signs - 24 hr 08/17/23 22:34 08/17/23 22:43 08/17/23 22:43 Temperature 101.1 F H Pulse Rate Pulse Rate [Pulse Oximeter] Pulse Rate [Right Pulse Oximeter] 102 H Respiratory Rate 24 Blood Pressure Blood Pressure [Ri ght Arm] Blood Pressure [Ri ght Upper Arm] 165/86 H Pulse Oximetry 92 96 96 Oxygen Delivery Me thod Room Air Nasal Cannula Oxygen Flow Rate 3 08/17/23 23:12 08/17/23 23:30 08/17/23 23:32 Temperature Pulse Rate 92 95 92 Pulse Rate [Pulse Oximeter] Pulse Rate [Right Pulse Oximeter] Respiratory Rate Blood Pressure 146/80 H Blood Pressure [Ri ght Arm] Blood Pressure [Ri ght Upper Arm] Pulse Oximetry 96 93 94 Oxygen Delivery Me thod Nasal Cannula Oxygen Flow Rate 2 08/18/23 00:00 08/18/23 00:02 08/18/23 00:03 Temperature Pulse Rate 97 96 95 Pulse Rate [Pulse Oximeter] Pulse Rate [Right Pulse Oximeter] Respiratory Rate Blood Pressure 141/65 H Blood Pressure [Ri ght Arm] Blood Pressure [Ri ght Upper Arm] Pulse Oximetry 92 92 93 Oxygen Delivery Me thod Nasal Cannula Oxygen Flow Rate 2 08/18/23 00:30 08/18/23 00:32 08/18/23 00:35 Temperature 100 F H Pulse Rate 95 95 Pulse Rate [Pulse Oximeter] Pulse Rate [Right Pulse Oximeter] Respiratory Rate Blood Pressure 127/70 Blood Pressure [Ri ght Arm] Blood Pressure [Ri ght Upper Arm] Pulse Oximetry 91 91 Oxygen Delivery Me thod Oxygen Flow Rate 08/18/23 01:30 08/18/23 01:32 08/18/23 01:38 Temperature 100 F H Pulse Rate 90 89 Pulse Rate [Pulse Oximeter] Pulse Rate [Right Pulse Oximeter] Respiratory Rate 22 20 Blood Pressure 135/78 117/78 Blood Pressure [Ri ght Arm] Blood Pressure [Ri ght Upper Arm] Pulse Oximetry 93 93 Oxygen Delivery Me thod Oxygen Flow Rate 08/18/23 02:02 08/18/23 02:19 08/18/23 03:00 Temperature 99.6 F 99.5 F Pulse Rate 90 Pulse Rate [Pulse Oximeter] 81 81 Pulse Rate [Right Pulse Oximeter] Respiratory Rate 22 20 20 Blood Pressure 122/63 Blood Pressure [Ri ght Arm] 136/79 Blood Pressure [Ri ght Upper Arm] Pulse Oximetry 93 92 92 Oxygen Delivery Me thod Room Air Room Air Oxygen Flow Rate 0 0 08/18/23 07:15 08/18/23 08:10 Temperature 97.7 F Pulse Rate 76 Pulse Rate [Pulse Oximeter] 89 Pulse Rate [Right Pulse Oximeter] Respiratory Rate 18 Blood Pressure Blood Pressure [Ri ght Arm] 136/79 Blood Pressure [Ri ght Upper Arm] Pulse Oximetry 94 Oxygen Delivery Me thod Room Air Oxygen Flow Rate Labs Labs: Laboratory Results - last 24 hr 08/17/23 08/17/23 08/17/23 22:41 23:10 23:27 WBC 4.61 RBC 4.34 Hgb 13.6 Hct 39.8 MCV 92 MCH 31 MCHC 34 RDW Coeff of Russ 13.4 Plt Count 151 Neut % (Auto) 95.5 H Lymph % (Auto) 2.8 L Sebastian % (Auto) 0.4 Eos % (Auto) 0.2 Baso % (Auto) 0.2 Neut # (Auto) 4.40 Lymph # (Auto) 0.10 L Sebastian # (Auto) 0.00 Eos # (Auto) 0.01 Baso # (Auto) 0.01 Abs Immat Gran (auto) 0.04 Imm/Tot Granulo (auto) 0.9 D-Dimer Quant (PE/DVT) 2.32 H VBG pH VBG pCO2 VBG pO2 VBG HCO3 Sodium 136 Potassium 2.9 L* Chloride 106 Carbon Dioxide 19 L Anion Gap 11 BUN 24 Creatinine 0.9 Estimated Creat Clear 56.00 Estimated GFR 87 Glucose 165 H Hemoglobin A1c 6.1 H Lactate 2.0 H Calcium 9.0 Magnesium Total Bilirubin AST ALT Alkaline Phosphatase Troponin I 0.33 H* C-Reactive Protein Total Protein Albumin Triglycerides Cholesterol LDL Cholesterol, Calc HDL Cholesterol Procalcitonin Urine Color Urine Appearance Urine pH Ur Specific Anita Urine Protein Urine Glucose (UA) Urine Ketones Urine Blood Urine Nitrite Urine Bilirubin Urine Urobilinogen Ur Leukocyte Esterase SARS-CoV-2 (PCR) Negative SARS-CoV-2 Influenza Type A (PCR) Negative PCR FLU A Influenza Type B (PCR) Negative PCR FLU B RSV (PCR) Negative PCR RSV Lab Acknowledgement 08/18/23 08/18/23 08/18/23 00:27 06:10 08:28 WBC 11.90 H RBC 3.92 L Hgb 12.3 L Hct 35.9 L MCV 92 MCH 31 MCHC 34 RDW Coeff of Russ 13.5 Plt Count 163 Neut % (Auto) 92.3 H Lymph % (Auto) 2.9 L Sebastian % (Auto) 4.5 Eos % (Auto) 0.0 Baso % (Auto) 0.1 Neut # (Auto) 11.00 H Lymph # (Auto) 0.30 L Sebastian # (Auto) 0.50 Eos # (Auto) 0.00 Baso # (Auto) 0.00 Abs Immat Gran (auto) 0.00 Imm/Tot Granulo (auto) 0.2 D-Dimer Quant (PE/DVT) VBG pH VBG pCO2 VBG pO2 VBG HCO3 Sodium 137 Potassium 3.5 L Chloride 108 Carbon Dioxide 18 L Anion Gap 11 BUN 20 Creatinine 1.1 Estimated Creat Clear 50.91 Estimated GFR 68 Glucose 148 H Hemoglobin A1c Lactate Calcium 8.8 Magnesium 1.7 Total Bilirubin 1.0 AST 35 ALT 24 Alkaline Phosphatase 65 Troponin I 0.74 H* C-Reactive Protein 3.5 H Total Protein 6.2 Albumin 3.3 Triglycerides 46 Cholesterol 70 L LDL Cholesterol, Calc 24 HDL Cholesterol 37 L Procalcitonin 26.60 H Urine Color Yellow Urine Appearance Clear Urine pH 5.5 Ur Specific Anita 1.015 Urine Protein Negative Urine Glucose (UA) Negative Urine Ketones Negative Urine Blood Negative Urine Nitrite Negative Urine Bilirubin Negative Urine Urobilinogen 0.2 Ur Leukocyte Esterase Negative SARS-CoV-2 (PCR) Influenza Type A (PCR) Influenza Type B (PCR) RSV (PCR) Lab Acknowledgement Test Added 08/18/23 08/18/23 08:31 09:13 WBC RBC Hgb Hct MCV MCH MCHC RDW Coeff of Russ Plt Count Neut % (Auto) Lymph % (Auto) Sebastian % (Auto) Eos % (Auto) Baso % (Auto) Neut # (Auto) Lymph # (Auto) Sebastian # (Auto) Eos # (Auto) Baso # (Auto) Abs Immat Gran (auto) Imm/Tot Granulo (auto) D-Dimer Quant (PE/DVT) VBG pH 7.394 VBG pCO2 37 L VBG pO2 38.8 VBG HCO3 23 Sodium Potassium Chloride Carbon Dioxide Anion Gap BUN Creatinine Estimated Creat Clear Estimated GFR Glucose Hemoglobin A1c Lactate 3.6 H Calcium Magnesium Total Bilirubin AST ALT Alkaline Phosphatase Troponin I 0.61 H* C-Reactive Protein Total Protein Albumin Triglycerides Cholesterol LDL Cholesterol, Calc HDL Cholesterol Procalcitonin Urine Color Urine Appearance Urine pH Ur Specific Anita Urine Protein Urine Glucose (UA) Urine Ketones Urine Blood Urine Nitrite Urine Bilirubin Urine Urobilinogen Ur Leukocyte Esterase SARS-CoV-2 (PCR) Influenza Type A (PCR) Influenza Type B (PCR) RSV (PCR) Lab Acknowledgement Test Added
--- NOTE | 2023-08-18 11:47 | CT_ITS ---
Patient: ASA PADILLA Facility:?[facility] Patient ID:?[id number] Site Patient ID:?[id number]. Site :?[id number] Study:?CT-Abdomen/Pelvis w/ 102cc [id number]/24/2024 12:50:46 PM Ordering Physician:Cher Reyes Final Report: Indication: Left lower quadrant pain rule out infection Technique: Contrast CT abdomen pelvis 102 mL Isovue 370. Comparison: No comparison Findings: 4 millimeter left lower lobe pulmonary nodule on 08/19. Left basilar atelectasis. Large hiatal hernia with majority of the stomach in the lower chest. Spleen adrenal glands unremarkable liver unremarkable cholecystectomy biliary dilatation. The pancreas is unremarkable. Left renal cyst. Too small to characterize low-attenuation lesions in the kidneys. No hydronephrosis No abdominal aortic aneurysm. Prostate gland not appear enlarged brachytherapy prostatic seeds. Wall thickening of the urinary bladder with pericystic inflammatory changes. Diverticulosis. Normal appendix. There is wall thickening inflammatory change of the sigmoid colon. Small fat containing right inguinal hernia. No suspicious bone lesions are seen Impression: 1. Sigmoid diverticulitis. 2. Wall thickening of the urinary bladder with pericystic inflammatory change correlate for cystitis. 3. 4 millimeter left lower lobe pulmonary nodule follow-up per Fleischner society guidelines. 4. Large hiatal hernia with majority of the stomach in the lower chest. Please note that all CT scans at this facility use dose modulation, iterative reconstruction, and/or weight-based dosing when appropriate to reduce radiation dose to as low as reasonably achievable. Dictated by Kati Lira MD @ 08/18/2023 1:15:07 PM Signed by:?Kati Lira MD @08/18/2023 1:15:07 PM (Electronic Signature)
[2023-08-18] MEDS: 0.9 % SODIUM CHLORIDE 1000 ml 1,000 ML 500 ML IV (11:58)
[2023-08-18 12:21] LABS: Albumin* 3.5 g/dL (3.3-5.0)
[2023-08-18 12:24] LABS: Alanine Aminotransferase* 24 U/L (4-50); Alkaline Phosphatase* 90 U/L (40-150); Aspartate Amino Transferase* 38 U/L (12-35); Bilirubin Total* 0.9 mg/dL (0.1-1.5); Total Protein* 6.7 g/dL (6.0-8.3)
[2023-08-18 12:27] LABS: C Reactive Protein* 1.4 mg/dL (0.5-1.0)
[2023-08-18 12:41] LABS: Procalcitonin* 4.86 ng/mL (<0.50)
[2023-08-18] MEDS: TAMSULOSIN HCL 0.4 MG CAPSULE 0.8 MG PO (12:53)
[2023-08-18] MEDS: METOPROLOL SUCCINATE (XL) 25 MG TAB PO (12:53)
[2023-08-18] MEDS: ROSUVASTATIN CALCIUM 10 MG TABLET 20 MG PO (12:53)
[2023-08-18] MEDS: MULTIVITAMIN/MINERALS 1 TABLET 1 TAB PO (12:53)
[2023-08-18] MEDS: LEVOTHYROXINE 100 MCG TABLET PO (12:54)
[2023-08-18] MEDS: 0.9 % SODIUM CHLORIDE 1000 ml 1,000 ML 150 ML IV (14:20)
[2023-08-18] MEDS: ACETAMINOPHEN 325 MG TABLET 650 MG PO ×2 (16:27→23:53)
[2023-08-18 17:38] LABS: Chloride* 109 mmol/L (96-114); Potassium* 3.7 mmol/L (3.6-5.1); Sodium* 135 mmol/L (135-149)
[2023-08-18 17:40] LABS: Estimated Glomerular Filt Rate 77 ml/min
[2023-08-18 17:41] LABS: Anion Gap 9 mEq/L (7-15); Blood Urea Nitrogen* 17 mg/dL (7-30); Carbon Dioxide* 17 mmol/L (20-32); Glucose* 145 mg/dL (60-115)
[2023-08-18 17:42] LABS: Calcium* 8.7 mg/dL (8.4-10.6)
[2023-08-18] MEDS: METOPROLOL TARTRATE 1 MG/ML inj 5 MG IVP ×2 (17:55→23:49)
[2023-08-18 18:02] LABS: NT Pro B Type NatriureticPept* 3410 pg/mL; Troponin I* 0.57 ng/mL (0.01-0.04)
--- NOTE | 2023-08-18 18:59 | PC.NURSE ---
Pt alert and oriented.Pt pleasant and cooperative. Pt had complaints of a headache; see EMAR for intervention. Pt is independent. Pt up walking in hallways x 2 during shift. Pt's at bedside from late morning to early evening. Pt had complaints of SOB with rest late evening; reported to hospitalist; see orders for intervention. Pt had ECHO done at bedside today. Pt's telemetry NSR during shift.
[2023-08-18] MEDS: ENOXAPARIN 40 MG/0.4 ML INJ SUBCUT (20:09)
[2023-08-19] VITALS (15 sets, daily range): BP systolic 131–215; BP diastolic 76–109; PULSE 58–83; RESP 18–22; TEMP 36.6–38.6; O2SAT 92–96
[2023-08-19 03:18] LABS: C.Difficile Negative (Negative); CDIFFEPI 027 PRESUMPTIVE NEGATIVE (Negative)
[2023-08-19] MEDS: 0.9 % SODIUM CHLORIDE 1000 ml 1,000 ML 75 ML IV ×2 (03:26→19:28)
--- NOTE | 2023-08-19 03:34 | PM.EN ---
Chart Event Note Chart Event Note: Called regarding diarrhea. C diff negative. Ordered Imodium
[2023-08-19] MEDS: PIPERACILLIN/TAZOBACTAM 3.375 GM in 0.9 % SODIUM CHLORIDE Mini-bag 100 ML IVPB ×4 (05:52→23:23)
[2023-08-19] MEDS: METOPROLOL TARTRATE 1 MG/ML inj 5 MG IVP ×4 (05:53→23:24)
[2023-08-19] MEDS: LOPERAMIDE HCL 2 MG CAPSULE 4 MG PO (05:54)
--- NOTE | 2023-08-19 06:48 | PC.NURSE ---
End of shift [id number]: Pt A&O and independent in his room. Febrile overnight with T-max 101.1; PRN Tylenol given @ 2350 and fever resolved. Pt c/o frequent urination and frequent, urgent loose stools throughout the night. Stool sample collected, C. Diff negative. PRN Imodium ordered and given @ 0555. PIV in right FA infusing NaCl @ 75 mL/hr and PIV in left AC SL and C/D/I. Pt denies having any pain, nausea or SOB overnight. TELE reading NSR rate in the 70s-80s bpm. IV Zosyn given q6H and IV 5mg metoprolol given q6H per AUG. Pt plans to discharge home when medically stable. ?
--- NOTE | 2023-08-19 07:34 | P.IMPN_ITS ---
Progress Note: A&P Assessment and plan (1) Sigmoid diverticulitis: Problem details: explains sepsis presentation; on zosyn. no perf or abscess. follow clinically. Status: Acute (2) Sepsis: Problem details: temp still up and down but overall improved diverticulitis cause Status: Acute (3) NSTEMI (non-ST elevated myocardial infarction): Problem details: troponin elevated, peaked and is now mostly downtrending. echo reassuring ECG from 2019 and this admission show new changes (incomplete RBBB and prolonged QT now) - resolved 08/19 Ischemic symptoms: mild SOB reported on arrival tx: aspirin and beta-blockade. holding on DAPT until infection is sorted out and troponin is down trending and patient feels improved. Status: Acute (4) Fever: Problem details: tmax 101.1 on zosyn for diverticulitis bc ngtd Status: Acute (5) Hypertension: Problem details: metoprolol monotherapy, will increase and cover with additional doses of IVP metoprolol Status: Acute (6) Chronic kidney disease: Problem details: GFR 68, creat 1.1 Status: Acute (7) Hiatal hernia: Problem details: large, compressive atelactasis. known. Status: Acute Subjective Date Seen: 08/19/23 Interval history: Daily Progress Note - Hospital Medicine #: 3 CC: rigors, concern for bacteremia - sepsis. elevated Troponin, consistent with demand ischemia. OVERNIGHT UPDATES FROM STAFF & MED, LAB, IMAGING UPDATES -febrile overnight, tmax 101.1 -diarrhea overnight. CDIFF neg. -no chest pain. hypertensive. CT AP yesterday afternoon. Impression: 1. Sigmoid diverticulitis. 2. Wall thickening of the urinary bladder with pericystic inflammatory change correlate for cystitis. 3. 4 millimeter left lower lobe pulmonary nodule follow-up per Fleischner society guidelines. 4. Large hiatal hernia with majority of the stomach in the lower chest. -WBC downtrending -pH normal -potassium 3.7 --> 3.5 -crp 3.5 --> 11.5 procalcitonin 26.6 --> 22.10 -troponin 0.33 --> 0.74 --> 0.61 --> 0.57 --> 0.71 -EKG: nonspecific changes in the inferior leads; prolonged QT. 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 When compared to 2019 - these nonspecific changes are new. -NGTD: blood culture x 2 and urine culture. -MRSA neg -echo ordered/pending Objective: looks better than expected. indep in room, didn't rest well last night Vitals: see above Lungs: Clear. Cardiac: S1S2. abdomen: soft Disposition/Potential discharge - Likely to return to previous living situation. Today I spent 50minutes seeing the patient, reviewing Expanse and EPIC notes/diagnostics, discussing the care plan with our care time that includes social work, PT/OT, pharmacy, RT, halfway and documenting my impressions and plan in the medical record. Exam Const: Vital Signs, click to edit/add: Vital Signs - 24 hr 08/18/23 08:10 08/18/23 11:25 08/18/23 15:26 Temperature 97.7 F 98.0 F Pulse Rate 91 Pulse Rate [Pulse Oximeter] 89 78 Respiratory Rate 18 16 Blood Pressure [Ri ght Arm] 136/79 161/80 H Pulse Oximetry 94 98 Oxygen Delivery Me thod Room Air Room Air 08/18/23 15:30 08/18/23 19:00 08/18/23 22:58 Temperature 99.2 F 98.2 F Pulse Rate 88 Pulse Rate [Pulse Oximeter] 81 70 Respiratory Rate 20 20 Blood Pressure [Ri ght Arm] 176/87 H 164/82 H Pulse Oximetry 97 98 Oxygen Delivery Me thod Room Air Room Air 08/18/23 23:00 08/18/23 23:00 08/19/23 03:00 Temperature 101.1 F H 98.7 F Pulse Rate Pulse Rate [Pulse Oximeter] 70 80 65 Respiratory Rate 20 22 22 Blood Pressure [Ri ght Arm] 163/78 H 146/91 H Pulse Oximetry 93 92 Oxygen Delivery Me thod Room Air Room Air 08/19/23 06:59 Temperature Pulse Rate 58 L Pulse Rate [Pulse Oximeter] Respiratory Rate Blood Pressure [Ri ght Arm] Pulse Oximetry Oxygen Delivery Me thod Labs Labs: Laboratory Results - last 24 hr 08/17/23 08/17/23 08/18/23 00:38 23:10 06:10 VBG pH VBG pCO2 VBG pO2 VBG HCO3 Sodium 136 137 Potassium 2.9 L* 3.5 L Chloride 106 108 Carbon Dioxide 19 L 18 L Anion Gap 11 11 BUN 24 20 Creatinine 0.9 1.1 Estimated Creat Clear 56.00 50.91 Estimated GFR 87 68 Glucose 165 H 148 H Lactate Calcium 9.0 8.8 Magnesium 1.7 Total Bilirubin 0.9 1.0 AST 38 H 35 ALT 24 24 Alkaline Phosphatase 90 65 Troponin I 0.74 H* C-Reactive Protein 1.4 H 3.5 H NT-Pro-B Natriuret Pep Total Protein 6.7 6.2 Albumin 3.5 3.3 Triglycerides 46 Cholesterol 70 L LDL Cholesterol, Calc 24 HDL Cholesterol 37 L Procalcitonin 4.86 H 26.60 H Urine L. pneumophilia Ag Cancelled Urine Strep pneumoniae Ag Cancelled Stl C. diff Tox B Gene Stl C. diff [id number]-[id number] Lab Acknowledgement 08/18/23 08/18/23 08/18/23 08:28 08:31 09:13 VBG pH 7.394 VBG pCO2 37 L VBG pO2 38.8 VBG HCO3 23 Sodium Potassium Chloride Carbon Dioxide Anion Gap BUN Creatinine Estimated Creat Clear Estimated GFR Glucose Lactate 3.6 H Calcium Magnesium Total Bilirubin AST ALT Alkaline Phosphatase Troponin I 0.61 H* C-Reactive Protein NT-Pro-B Natriuret Pep Total Protein Albumin Triglycerides Cholesterol LDL Cholesterol, Calc HDL Cholesterol Procalcitonin Urine L. pneumophilia Ag Urine Strep pneumoniae Ag Stl C. diff Tox B Gene Stl C. diff -[id number]-BI Lab Acknowledgement Test Added Test Added 08/18/23 08/18/23 08/19/23 12:28 17:20 00:05 VBG pH VBG pCO2 VBG pO2 VBG HCO3 Sodium 135 Potassium 3.7 Chloride 109 Carbon Dioxide 17 L Anion Gap 9 BUN 17 Creatinine 1.0 Estimated Creat Clear 56.00 Estimated GFR 77 Glucose 145 H Lactate 1.0 Calcium 8.7 Magnesium Total Bilirubin AST ALT Alkaline Phosphatase Troponin I 0.57 H* C-Reactive Protein NT-Pro-B Natriuret Pep 3410 Total Protein Albumin Triglycerides Cholesterol LDL Cholesterol, Calc HDL Cholesterol Procalcitonin Urine L. pneumophilia Ag Urine Strep pneumoniae Ag Stl C. diff Tox B Gene Negative Stl C. diff [id number] PRESUMPTIVE NEGATIVE Lab Acknowledgement Test Added
[2023-08-19 08:16] LABS: Basophils Absolute Auto 0.01 K/uL (0.00-0.30); Basophils Percent Auto 0.2 % (0.0-3.0); Eosinophils Absolute Auto 0.03 K/uL (0.00-0.50); Eosinophils Percent Auto 0.6 % (0.0-7.0); HCO3 VBG 23 mmol/L (21-28); Hematocrit 40.4 % (37.0-53.0); Hemoglobin* 13.7 gm/dL (13.5-17.5); Immature Granulocytes Abs Auto 0.01 K/uL (0.00-0.30); Immature Granulocytes Pct Auto 0.2 %; Ionized Calcium* 1.13 mmol/L (1.11-1.30); Lactate* 1.5 mmol/L (0.5-1.9); Mean Corpuscular HGB Conc 34 gm/dL (32-36); Mean Corpuscular Hemoglobin 31 pg (26-34); Mean Corpuscular Volume 92 fL (80-100); Monocytes Percent Auto 7.4 % (0.0-11.0); Neutrophils Percent Auto 86.6 % (42.0-72.0); PCO2 VBG 37 mmHG (40-50); PO2 VBG < 30.1 mmHG (25-47); Platelet Count* 128 K/uL (140-440); RDW Coefficient of Variation % 13.7 % (11.5-15.5); Red Blood Count 4.38 m/uL (4.30-5.90); pH VBG 7.407 (7.32-7.43)
[2023-08-19 08:17] LABS: Slide Review Reflex No
[2023-08-19] MEDS: allopurinoL 300 MG TABLET PO (08:18)
[2023-08-19] MEDS: LEVOTHYROXINE 100 MCG TABLET PO (08:19)
[2023-08-19] MEDS: METOPROLOL SUCCINATE (XL) 50 MG TAB PO (08:19)
[2023-08-19] MEDS: MULTIVITAMIN/MINERALS 1 TABLET 1 TAB PO (08:19)
[2023-08-19] MEDS: ACETAMINOPHEN 325 MG TABLET 650 MG PO ×2 (08:19→17:34)
[2023-08-19] MEDS: ROSUVASTATIN CALCIUM 10 MG TABLET 20 MG PO (08:20)
[2023-08-19] MEDS: ASPIRIN 81 MG TABLET EC PO (08:20)
[2023-08-19] MEDS: TAMSULOSIN HCL 0.4 MG CAPSULE 0.8 MG PO (08:20)
[2023-08-19 08:31] LABS: Albumin* 3.7 g/dL (3.3-5.0); Chloride* 107 mmol/L (96-114)
[2023-08-19 08:32] LABS: Potassium* 3.5 mmol/L (3.6-5.1); Sodium* 138 mmol/L (135-149)
[2023-08-19 08:33] LABS: INR 1.15 (0.91-1.10); Prothrombin Time 15.4 Seconds
[2023-08-19 08:34] LABS: Alkaline Phosphatase* 73 U/L (40-150); Anion Gap 11 mEq/L (7-15); Aspartate Amino Transferase* 49 U/L (12-35); Bilirubin Total* 1.5 mg/dL (0.1-1.5); Carbon Dioxide* 20 mmol/L (20-32); Estimated Glomerular Filt Rate 77 ml/min; Lipase* 97 U/L (23-300); Total Protein* 7.1 g/dL (6.0-8.3)
[2023-08-19 08:35] LABS: Alanine Aminotransferase* 31 U/L (4-50); Blood Urea Nitrogen* 13 mg/dL (7-30); Calcium* 8.9 mg/dL (8.4-10.6); Gamma Glutamyl Transpeptidase* 19 U/L (8-55); Glucose* 121 mg/dL (60-115); Magnesium* 1.7 mg/dL (1.5-2.6)
[2023-08-19 08:56] LABS: C Reactive Protein* 11.5 mg/dL (0.5-1.0); Troponin I* 0.71 ng/mL (0.01-0.04)
--- NOTE | 2023-08-19 18:23 | PC.NURSE ---
End of shift. end of shift. pt has been pleasant. he had a temp this am and got Tylenol and also later. IV in right FA, left AC SL. Pt denies having any pain, nausea or SOB overnight. TELE shows NSR Shelia Zosyn given q6H. BP is high and fever and md was updated. ?
[2023-08-19] MEDS: SODIUM CHLORIDE 0.9 % (FLUSH) 10 ML SYRINGE 5 ML IVF (19:29)
[2023-08-19] MEDS: ENOXAPARIN 40 MG/0.4 ML INJ SUBCUT (20:04)
[2023-08-20] VITALS (7 sets, daily range): BP systolic 139–181; BP diastolic 79–101; PULSE 55–83; RESP 16–18; TEMP 36.9–37.9; O2SAT 93–95
[2023-08-20] MEDS: PIPERACILLIN/TAZOBACTAM 3.375 GM in 0.9 % SODIUM CHLORIDE Mini-bag 100 ML IVPB ×3 (05:26→17:46)
[2023-08-20] MEDS: LOPERAMIDE HCL 2 MG CAPSULE 4 MG PO (05:33)
[2023-08-20] MEDS: METOPROLOL TARTRATE 1 MG/ML inj 5 MG IVP ×2 (05:41→17:55)
--- NOTE | 2023-08-20 05:59 | PC.NURSE ---
Pt rested well this night. Remained afebrile all night. BP elevated. up IND. Had 1 loose stool. Voiding adequately. Reporting zero pain.
[2023-08-20 06:18] LABS: HCO3 VBG 21 mmol/L (21-28); Lactate* 0.9 mmol/L (0.5-1.9); PCO2 VBG 31 mmHG (40-50); PO2 VBG 43.4 mmHG (25-47); pH VBG 7.451 (7.32-7.43)
[2023-08-20 06:45] LABS: Hematocrit 36.4 % (37.0-53.0); Hemoglobin* 12.5 gm/dL (13.5-17.5); Mean Corpuscular HGB Conc 34 gm/dL (32-36); Mean Corpuscular Hemoglobin 32 pg (26-34); Mean Corpuscular Volume 92 fL (80-100); Platelet Count* 134 K/uL (140-440); Red Blood Count 3.97 m/uL (4.30-5.90); White Blood Count* 3.69 K/uL (4.50-11.00)
[2023-08-20 06:59] LABS: INR 1.06 (0.91-1.10); Prothrombin Time 14.5 Seconds; Slide Review Reflex No
[2023-08-20 07:22] LABS: Chloride* 108 mmol/L (96-114)
[2023-08-20 07:23] LABS: Albumin* 3.2 g/dL (3.3-5.0); Sodium* 135 mmol/L (135-149)
[2023-08-20 07:24] LABS: Potassium* 3.2 mmol/L (3.6-5.1)
[2023-08-20 07:25] LABS: Creatinine* 1.1 mg/dL (0.5-1.5); Est. Creatinine Clearance* 50.91; Estimated Glomerular Filt Rate 68 ml/min
[2023-08-20 07:26] LABS: Alanine Aminotransferase* 33 U/L (4-50); Alkaline Phosphatase* 69 U/L (40-150); Anion Gap 7 mEq/L (7-15); Aspartate Amino Transferase* 55 U/L (12-35); Bilirubin Direct* 0.3 mg/dL (0.0-0.5); Bilirubin Total* 0.9 mg/dL (0.1-1.5); Blood Urea Nitrogen* 13 mg/dL (7-30); Carbon Dioxide* 20 mmol/L (20-32); Total Protein* 6.3 g/dL (6.0-8.3)
[2023-08-20 07:27] LABS: Calcium* 8.5 mg/dL (8.4-10.6); Glucose* 106 mg/dL (60-115); Phosphorus* 2.5 mg/dL (2.5-4.5)
[2023-08-20 07:49] LABS: NT Pro B Type NatriureticPept* 3660 pg/mL; Troponin I* 0.26 ng/mL (0.01-0.04)
[2023-08-20] MEDS: AMLODIPINE 5 MG TABLET PO (09:26)
[2023-08-20] MEDS: TAMSULOSIN HCL 0.4 MG CAPSULE 0.8 MG PO (09:27)
[2023-08-20] MEDS: ROSUVASTATIN CALCIUM 10 MG TABLET 20 MG PO (09:27)
[2023-08-20] MEDS: ASPIRIN 81 MG TABLET EC PO (09:27)
[2023-08-20] MEDS: allopurinoL 300 MG TABLET PO (09:27)
[2023-08-20] MEDS: LEVOTHYROXINE 100 MCG TABLET PO (09:27)
[2023-08-20] MEDS: MULTIVITAMIN/MINERALS 1 TABLET 1 TAB PO (09:27)
[2023-08-20] MEDS: METOPROLOL SUCCINATE (XL) 50 MG TAB PO (09:27)
[2023-08-20] MEDS: SODIUM CHLORIDE 0.9 % (FLUSH) 10 ML SYRINGE 5 ML IVF ×3 (09:28→23:59)
--- NOTE | 2023-08-20 09:30 | PC.NURSE ---
Notified of temp of 100.3
[2023-08-20] MEDS: POTASSIUM CHLORIDE 10 MEQ/100 ML PIGGYBACK 100 MEQ IVPB ×2 (09:31→10:42)
--- NOTE | 2023-08-20 11:31 | PM.IMPN1 ---
Progress Note: A&P Assessment and plan (1) Sigmoid diverticulitis: Problem details: explains sepsis presentation; on zosyn. no perf or abscess. follow clinically. Status: Acute (2) Sepsis: Problem details: temp still up and down but overall improved diverticulitis cause -2nd set of blood cultures drawn, 1st set negative but continues to be intermittently febrile Status: Acute (3) NSTEMI (non-ST elevated myocardial infarction): Problem details: troponin elevated, peaked and is now mostly downtrending. echo reassuring ECG from 2019 and this admission show new changes (incomplete RBBB and prolonged QT now) - resolved 08/19 Ischemic symptoms: mild SOB reported on arrival tx: aspirin and beta-blockade. holding on DAPT until infection is sorted out and troponin is down trending and patient feels improved. outpatient stress test will need to be scheduled. Status: Acute (4) Fever: Problem details: tmax 101.4 on zosyn for diverticulitis bc ngtd Status: Acute (5) Hypertension: Problem details: metoprolol monotherapy, will increase and cover with additional doses of IVP metoprolol added amlodipine 08/20 Status: Acute (6) Chronic kidney disease: Problem details: GFR 68, creat 1.1 Status: Acute (7) Hiatal hernia: Problem details: large, compressive atelactasis. known. Status: Acute Subjective Date Seen: 08/20/23 Interval history: Daily Progress Note - Hospital Medicine #: 4 CC: rigors, concern for bacteremia - sepsis. elevated Troponin, consistent with demand ischemia. Sigmoid diverticulitis being treated with IV Zosyn OVERNIGHT UPDATES FROM STAFF & MED, LAB, IMAGING UPDATES -T-max was 101.4? 730 last night, currently 100.3 -diarrhea intermittent. C diff negative -no chest pain. hypertensive. -reporting very little abdominal pain -WBC downtrending -pH reassuring -potassium 3.7 --> 3.5 -->3.2 (potassium IV ordered) -crp 3.5 --> 11.5 --> 7.0 procalcitonin 26.6 --> 22.10-->15.8 -troponin 0.33 --> 0.74 --> 0.61 --> 0.57 --> 0.71 --> 0.26 -EKG: nonspecific changes in the inferior leads; prolonged QT. 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 When compared to 2019 - these nonspecific changes are new and have resolved. -NGTD: blood culture x 2 and urine culture. -MRSA neg -echo: Normal LV size, moderately increased wall thickness, hyperdynamic with an EF greater than 75%. Normal RV function Objective: looks better than expected. indep in room, rested better last night. Vitals: see above Lungs: Clear. Cardiac: S1S2. abdomen: soft, just mild discomfort with deeper palpation Disposition/Potential discharge - Likely to return to previous living situation. Today I spent 50minutes seeing the patient, reviewing Expanse and EPIC notes/diagnostics, discussing the care plan with our care time that includes social work, PT/OT, pharmacy, RT, nursing home and documenting my impressions and plan in the medical record. Exam Const: Vital Signs, click to edit/add: Vital Signs - 24 hr 08/19/23 11:33 08/19/23 15:30 08/19/23 17:20 Temperature 99.7 F H Pulse Rate 59 L Pulse Rate [Pulse Oximeter] 83 Respiratory Rate 18 Blood Pressure [Le ft Arm] Blood Pressure [Ri ght Arm] Pulse Oximetry Oxygen Delivery Me thod Oxygen Flow Rate 08/19/23 17:29 08/19/23 17:34 08/19/23 19:17 Temperature 100.7 F H 100.7 F H 101.4 F H Pulse Rate Pulse Rate [Pulse Oximeter] 81 67 Respiratory Rate 22 20 Blood Pressure [Le ft Arm] 215/109 H 131/76 Blood Pressure [Ri ght Arm] Pulse Oximetry 94 94 Oxygen Delivery Me thod Room Air Room Air Oxygen Flow Rate 0 0 08/19/23 19:27 08/19/23 21:10 08/19/23 22:59 Temperature 101.4 F H Pulse Rate 59 L Pulse Rate [Pulse Oximeter] 67 Respiratory Rate 20 Blood Pressure [Le ft Arm] Blood Pressure [Ri ght Arm] Pulse Oximetry Oxygen Delivery Me thod Oxygen Flow Rate 08/19/23 23:27 08/20/23 02:53 08/20/23 09:25 Temperature 98 F 99.1 F 100.3 F H Pulse Rate Pulse Rate [Pulse Oximeter] 67 83 62 Respiratory Rate 18 18 16 Blood Pressure [Le ft Arm] 148/78 H 156/86 H Blood Pressure [Ri ght Arm] 181/101 H Pulse Oximetry 92 93 95 Oxygen Delivery Me thod Room Air Room Air Room Air Oxygen Flow Rate 0 08/20/23 10:44 Temperature Pulse Rate 60 Pulse Rate [Pulse Oximeter] Respiratory Rate Blood Pressure [Le ft Arm] Blood Pressure [Ri ght Arm] Pulse Oximetry Oxygen Delivery Me thod Oxygen Flow Rate Labs Labs: Laboratory Results - last 24 hr 08/20/23 05:53 WBC 3.69 L RBC 3.97 L Hgb 12.5 L Hct 36.4 L MCV 92 MCH 32 MCHC 34 Plt Count 134 L INR 1.06 VBG pH 7.451 H VBG pCO2 31 L VBG pO2 43.4 VBG HCO3 21 Sodium 135 Potassium 3.2 L Chloride 108 Carbon Dioxide 20 Anion Gap 7 BUN 13 Creatinine 1.1 Estimated Creat Clear 50.91 Estimated GFR 68 Glucose 106 Lactate 0.9 Calcium 8.5 Phosphorus 2.5 Total Bilirubin 0.9 Direct Bilirubin 0.3 AST 55 H ALT 33 Alkaline Phosphatase 69 Troponin I 0.26 H* C-Reactive Protein 7.0 H NT-Pro-B Natriuret Pep 3660 Total Protein 6.3 Albumin 3.2 L Procalcitonin 15.80 H
--- NOTE | 2023-08-20 14:09 | PC.NURSE ---
End of shift note: Patient had a temp max of 100.3 today. Repeat blood cultures completed. Denies abdominal pain and nausea. tolerating a regular diet. Voiding without difficulty. Has had 4 small loose BMs this shift. Has ambulated halls frequently. Alert and oriented. PIV r fa patent and SL. Held IV metoprolol due to pulse of 55. BPs have been satisfactory today. Did receive some IV potassium as well. has been here today. Washed up. Plan to continue IV antibiotics and monitor VS. Tele shows NSR.
--- NOTE | 2023-08-20 14:35 | NUTR.NU ---
RDN with diet education related to diverticulitis. Patient admitted for diverticulitis and sepsis. Current weight 206lb 11.2oz; height 5ft 7in; BMI 32.8 kg/2. Per weight records, weight has been stable recently. Current diet is Heart Healthy. Meal intakes have mainly been 75-100%. RDN visited with patient whom reports tolerating lunch well. Patient agreed to receive diet education related to diverticulitis. Patient was provided diet education on a low fiber diet. Discussed foods to include and foods to avoid until MD recommends advancing to high fiber diet. Education also provided on gradually increasing fiber and following a high fiber diet (25-35 grams/day) long-term. Verbal and written information as well as sample menus provided on both diets from AND [facility]. Patient verbalized understanding. RDN's contact information was provided and patient was encouraged to contact RDN with questions.
--- NOTE | 2023-08-20 19:20 | PC.NURSE ---
Nursing Care Hours: [id number] Pt this shift alert and oriented, calm and pleasant. Independent in room. BP continues to elevate. HR with in limits to give metoprolol at scheduled time. No c/o pain. Oral temp 99.7. Bilat IV patent. Pt states having loose stool without blood. Tele shows NSR.
[2023-08-20] MEDS: ENOXAPARIN 40 MG/0.4 ML INJ SUBCUT (22:03)
[2023-08-21] VITALS: BP 168/87; PULSE 70; RESP 22; TEMP 36.8; O2SAT 92
[2023-08-21] MEDS: PIPERACILLIN/TAZOBACTAM 3.375 GM in 0.9 % SODIUM CHLORIDE Mini-bag 100 ML IVPB ×2 (00:01→05:54)
[2023-08-21 03:00] VITALS: BP 156/82; PULSE 61; RESP 18; TEMP 36.4; O2SAT 93
[2023-08-21 05:50] VITALS: BP 156/82; PULSE 61
[2023-08-21] MEDS: METOPROLOL TARTRATE 1 MG/ML inj 5 MG IVP ×2 (05:55)
[2023-08-21] MEDS: SODIUM CHLORIDE 0.9 % (FLUSH) 10 ML SYRINGE 5 ML IVF ×2 (05:55→08:01)
[2023-08-21 06:43] LABS: Lactate* 0.6 mmol/L (0.5-1.9)
[2023-08-21 06:56] LABS: Hemoglobin* 11.7 gm/dL (13.5-17.5); Mean Corpuscular HGB Conc 34 gm/dL (32-36); Mean Corpuscular Hemoglobin 31 pg (26-34); Mean Corpuscular Volume 91 fL (80-100); Platelet Count* 140 K/uL (140-440); Red Blood Count 3.74 m/uL (4.30-5.90); White Blood Count* 3.73 K/uL (4.50-11.00)
[2023-08-21 06:58] LABS: Albumin* 3.1 g/dL (3.3-5.0); Chloride* 108 mmol/L (96-114); Sodium* 135 mmol/L (135-149)
[2023-08-21 06:59] LABS: Potassium* 3.3 mmol/L (3.6-5.1)
[2023-08-21 07:00] VITALS: BP 139/68; PULSE 58; PULSE 62; RESP 20; TEMP 37.4; O2SAT 93
[2023-08-21 07:00] LABS: Slide Review Reflex No
[2023-08-21 07:01] LABS: Anion Gap 7 mEq/L (7-15); Carbon Dioxide* 20 mmol/L (20-32); Cholesterol* 73 mg/dL (90-199); Estimated Glomerular Filt Rate 77 ml/min
[2023-08-21 07:02] LABS: Alanine Aminotransferase* 35 U/L (4-50); Alkaline Phosphatase* 66 U/L (40-150); Aspartate Amino Transferase* 56 U/L (12-35); Bilirubin Total* 0.8 mg/dL (0.1-1.5); Blood Urea Nitrogen* 13 mg/dL (7-30); Glucose* 102 mg/dL (60-115); Total Protein* 6.2 g/dL (6.0-8.3); Triglycerides* 121 mg/dL (40-149)
[2023-08-21 07:03] LABS: Calcium* 8.6 mg/dL (8.4-10.6); HDL Cholesterol* 21 mg/dL (>=40); LDL Cholesterol Calculated 28 mg/dL (<100)
[2023-08-21 07:05] LABS: C Reactive Protein* 4.6 mg/dL (0.5-1.0)
[2023-08-21 07:14] LABS: Procalcitonin* 8.78 ng/mL (<0.50)
[2023-08-21 07:33] LABS: INR 1.17 (0.91-1.10); Prothrombin Time 15.6 Seconds
[2023-08-21] MEDS: allopurinoL 300 MG TABLET PO (07:58)
[2023-08-21] MEDS: AMLODIPINE 5 MG TABLET PO (07:59)
[2023-08-21] MEDS: METOPROLOL SUCCINATE (XL) 50 MG TAB PO (07:59)
[2023-08-21] MEDS: ROSUVASTATIN CALCIUM 10 MG TABLET 20 MG PO (07:59)
[2023-08-21] MEDS: TAMSULOSIN HCL 0.4 MG CAPSULE 0.8 MG PO (07:59)
[2023-08-21] MEDS: LEVOTHYROXINE 100 MCG TABLET PO (08:00)
[2023-08-21] MEDS: ASPIRIN 81 MG TABLET EC PO (08:00)
[2023-08-21] MEDS: MULTIVITAMIN/MINERALS 1 TABLET 1 TAB PO (08:01)
[2023-08-21] MEDS: AMOXICILLIN/CLAVULANATE 875 mg/125 mg TABLET PO (08:23)
[2023-08-21] MEDS: LOPERAMIDE HCL 2 MG CAPSULE 4 MG PO (08:23)
--- NOTE | 2023-08-21 17:35 | PM.DS1 ---
DS: Providers Provider Date Seen: 08/21/23 Date of admission: 08/19/23 07:57 Primary care physician: Adrian Haskins MD Admitting Clinician: Robe John MD Consults: 08/18/23 02:45 Consult to Physical Therapy [CONS] Routine Comment: Reason(s) for PT Consult:: Evaluate and Treat Any Restrictions?:: No Restrictions Attending Physician on discharge: Evelia Tadeo MD [facility] Date of Discharge: 08/21/23 DS: Diagnosis Discharge Diagnosis (1) Sigmoid diverticulitis: Status: Acute Problem details: explains sepsis presentation; Zosyn transitioned to oral Augmentin no evidence of perforation or abscess did very well clinically (2) NSTEMI (non-ST elevated myocardial infarction): Status: Acute Problem details: troponin elevated, peaked and is now downtrending. echo reassuring ECG from 2019 and this admission show new changes (incomplete RBBB and prolonged QT now) - resolved 08/19 Ischemic symptoms: mild SOB reported on arrival tx: aspirin and beta-blockade. holding on DAPT until infection is sorted out and troponin is down trending and patient feels improved. outpatient stress test will need to be scheduled. (3) Sepsis: Status: Acute Problem details: temp still up and down but overall improved diverticulitis cause -2 set of blood cultures remained NGTD DS: Summary Hospital Course Hospital Course: FINAL DIAGNOSIS/FOLLOW UP ISSUES: 1. Non STEMI versus demand ischemia. There were EKG changes that resolved. These were prolonged QT and incomplete right bundle branch block. His troponin peaked at 0.71 - arranged for outpatient stress test and cardiac evaluation 2. Diverticulitis, benign clinical course. Tolerated Zosyn. Had some mild diarrhea. Discharged on oral Augmentin BRIEF HOSPITAL COURSE: Patient was admitted for 4 days. Synopsis of acute inpatient issues are outlined above. Chronic medical conditions with notable findings outlined above. Patient presented with nonspecific sepsis markers and rigors. Ultimately we diagnosed sigmoid diverticulitis. He was treated with IV Zosyn. He was able to advance his diet. His imaging showed inflammation of the sigmoid colon consistent with diverticulitis without perforation or abscess. He was medically managed. He also had a non STEMI with a peak troponin of 0.71 and some temporary EKG changes that resolved. His echo was reassuring. Outpatient cardiac stress testing and evaluation is recommended. We managed his blood pressure with increasing doses of metoprolol p.o. and IV boluses. We also added amlodipine for better control. DISCHARGE MEDICATIONS: See Reconciled list - SIGNIFICANT CHANGES: Oral Augmentin Increased metoprolol XL to 50 mg Initiated amlodipine at 5 mg daily Specific instructions to the patient and follow-up are outlined below. REVIEW OF SYSTEMS No new chest pain or dyspnea Pain controlled No voiding difficulties Tolerating diet challenge PHYSICAL EXAM: CONSTITUTIONAL: Alert. Insightful. Agreeable to discharge VITAL SIGNS: see record. HEENT: Normocephalic, atraumatic. PERRL, EOMI, conjunctivae pink, no scleral icterus. Ears and nose externally normal. Pharynx normal. NECK: No JVD. No carotid bruit, no thyromegaly, no adenopathy. CHEST: Clear to auscultation bilaterally. HEART: S1 and S2 normal. Edema ABDOMEN: Soft, nontender. Normal bowel sounds. MUSCULOSKELETAL: No gross joint deformity or swelling. NEURO: Cranial nerves intact. Grossly intact. No asymmetric findings. SKIN: No rashes, petechiae, concerning changes PSYCHIATRIC: Mood euthymic. DISPOSITION: Home with Time spent on discharge 37 minutes. Time Spent with Patient Time attestation: Total time spent providing and/or coordinating discharge services: Exam Const: Vital Signs, click to edit/add: Vital Signs - 24 hr 08/20/23 17:58 08/20/23 22:00 08/20/23 22:00 Temperature 98.5 F Pulse Rate 60 Pulse Rate [Pulse Oximeter] 61 68 Respiratory Rate 18 Blood Pressure [Le ft Arm] 157/82 H Blood Pressure [Ri ght Arm] 154/85 H Pulse Oximetry 93 Oxygen Delivery Me thod Room Air Oxygen Flow Rate 0 08/20/23 22:00 08/21/23 00:00 08/21/23 03:00 Temperature 98.3 F 97.6 F Pulse Rate Pulse Rate [Pulse Oximeter] 68 70 61 Respiratory Rate 18 22 18 Blood Pressure [Le ft Arm] Blood Pressure [Ri ght Arm] 168/87 H 156/82 H Pulse Oximetry 92 93 Oxygen Delivery Me thod Room Air Room Air Oxygen Flow Rate 0 0 08/21/23 05:50 08/21/23 07:00 08/21/23 07:00 Temperature 99.4 F Pulse Rate Pulse Rate [Pulse Oximeter] 61 62 62 Respiratory Rate 20 20 Blood Pressure [Le ft Arm] 139/68 Blood Pressure [Ri ght Arm] 156/82 H Pulse Oximetry 93 Oxygen Delivery Me thod Room Air Oxygen Flow Rate 08/21/23 07:00 Temperature Pulse Rate 58 L Pulse Rate [Pulse Oximeter] Respiratory Rate Blood Pressure [Le ft Arm] Blood Pressure [Ri ght Arm] Pulse Oximetry Oxygen Delivery Me thod Oxygen Flow Rate DS: Data Data Completed and Pending Labs on day of discharge: Labs from last 24 hours 08/21/23 05:54 WBC 3.73 L RBC 3.74 L Hgb 11.7 L Hct 34.0 L MCV 91 MCH 31 MCHC 34 Plt Count 140 INR 1.17 H Sodium 135 Potassium 3.3 L Chloride 108 Carbon Dioxide 20 Anion Gap 7 BUN 13 Creatinine 1.0 Estimated Creat Clear 56.00 Estimated GFR 77 Glucose 102 Lactate 0.6 Calcium 8.6 Total Bilirubin 0.8 AST 56 H ALT 35 Alkaline Phosphatase 66 Troponin I 0.10 H* C-Reactive Protein 4.6 H Total Protein 6.2 Albumin 3.1 L Triglycerides 121 Cholesterol 73 L LDL Cholesterol, Calc 28 HDL Cholesterol 21 L Procalcitonin 8.78 H Preliminary micro results at discharge 08/20/23 10:16 Blood Culture - Preliminary Blood NO GROWTH AFTER 24 HOURS 08/20/23 10:11 Blood Culture - Preliminary Blood NO GROWTH AFTER 24 HOURS 08/18/23 00:45 Blood Culture - Preliminary Blood NO GROWTH AFTER 72 HOURS 08/18/23 00:40 Blood Culture - Preliminary Blood NO GROWTH AFTER 72 HOURS Discharge Plan Discharge Disposition: Home, Self-Care Date of Admission: 08/19/23 07:57 Primary Care Provider: Adrian Haskins Condition: Stable Anticipated Discharge Date/Time: 08/21/23 10:42 Discharge Medications: New metoprolol succinate 50 mg Tablet Extended Release 24 Hr 50 mg PO DAILY Qty: 30 0RF amlodipine 5 mg Tablet 5 mg PO DAILY Qty: 30 0RF amoxicillin-pot clavulanate 875-125 mg Tablet 1 tab PO TIDWM Qty: 33 0RF Continued allopurinol 300 mg tablet 300 mg PO DAILY Qty: 90 3RF levothyroxine [Synthroid] 100 mcg tablet 100 mcg PO DAILY Qty: 90 3RF rosuvastatin 20 mg tablet 20 mg PO DAILY Qty: 90 3RF tamsulosin 0.4 mg capsule 0.8 mg PO DAILY Qty: 180 3RF multivitamin Tablet 1 tab PO DAILY calcium carbonate-vitamin D3 [Calcium 500 + D] 500 mg-10 mcg (400 unit) tablet 1 tab PO BID omega 4-rdy-sds-fish oil [Fish Oil] 1,000 mg (120 mg-180 mg) capsule 2 cap PO DAILY aspirin 81 mg tablet,delayed release (DR/EC) 81 mg PO DAILY Qty: 90 3RF Discontinued metoprolol succinate 25 mg tablet extended release 24 hr 25 mg PO DAILY Discharge Orders: Discharge Order (Routine); Ordered 08/21/23 Ordered By: Evelia Tadeo Patient Education: Metoprolol (By mouth), Amoxicillin/Clavulanate Potassium (By mouth), Amlodipine (By mouth), Heart Attack (DC), Diverticulitis (DC) Additional Instructions: finish all antibiotics ok to take imodium daily for loose stools as needed f/u with PCP and cardiology as we discussed Activity Level: No Restrictions Discharge Diet: Regular Follow Up Appointments: [facility] [Provider Group] - 08/28/23 ( Please schedule any cardiology provider at [facility] ([phone]) here in [place]. I like Dr. Claros. f/u NSTEMI during diverticulitis admission.) Adrian Haskins MD [Primary Care Provider] - 08/28/23 10:45 am ([facility] for follow up.) [facility] Inst[facility]
--- NOTE | 2023-08-22 18:41 | W.PM.CROSSCO ---
Subjective Subjective Principal diagnosis: + Blood Culture Interval history: Declan was admitted to the hospital on 08/18, diagnosed with diverticulitis, discharged home yesterday on Augmentin. Today, I received a call from the lab that 1/2 of his blood cultures drawn on 08/18 resulted + for GPC. Blood cultures obtained 08/20 remain negative. Called patient - he is home with his and taking antibiotics as prescribed. He is feeling good, has no fevers and no other concerns. No abdominal pain, tolerating po intake. Given reassuring clinical picture and negative growth on 3/4 blood cultures obtained 48hs+ ago, no need for patient to return to hospital. We discussed strict return precautions and patient and verbalized understanding of plan.
== END 2023-08-21 12:30 | disposition home or self-care (01) | DRG 871 ==
LOC: ED 08-18 01:43 → MEDSURG 08-18 02:09
PROVIDERS: Family Medicine; Internal Medicine; Admitting Provider Internal Medicine; Emergency Provider Internal Medicine; PCP Family Medicine; Visit Provider Internal Medicine
DX: A41.9 Sepsis, unspecified organism (principal); I21.4 Non-ST elevation (NSTEMI) myocardial infarction; K57.32 Diverticulitis of large intestine without perforation or abscess without bleeding; J98.11 Atelectasis; L03.011 Cellulitis of right finger; R19.7 Diarrhea, unspecified; I12.9 Hypertensive chronic kidney disease with stage 1 through stage 4 chronic kidney disease, or unspecified chronic kidney disease; N18.9 Chronic kidney disease, unspecified; I45.19 Other right bundle-branch block; M10.9 Gout, unspecified; K44.9 Diaphragmatic hernia without obstruction or gangrene; E78.5 Hyperlipidemia, unspecified; E03.9 Hypothyroidism, unspecified; Z86.73 Personal history of transient ischemic attack (TIA), and cerebral infarction without residual deficits
CPT/HCPCS: 36415; 71045; 71275; 74177; 80048; 80053; 80061; 80069; 80076; 81003; 82330; 82803; 82977; 83036; 83605; 83690; 83735; 83880; 84145; 84484; 85025; 85027; 85379; 85610; 86140; 87040; 87076; 87081; 87086; 87449; 87493; 87631; 87899; 93005; 93306; 94640; 94761; 97116; 97161; 99284; 99285; G0378; A9153; A9270; J1650; J2543; J3370; J3480; J7030; Q9967

== ENCOUNTER 2023-08-28 11:34 | Outpatient (CLI) | payer MEDICARE, SELFPAY | END 2023-08-28 11:35 | disposition home or self-care (01) | LOC: NFLDREF 11:37 | PROVIDERS: PCP Family Medicine; Visit Provider Family Medicine | DX: E87.6 Hypokalemia (principal) | CPT/HCPCS: 80048 ==

== ENCOUNTER 2023-10-23 10:30 | Outpatient (CLI) | payer MEDICARE, OTHER, SELFPAY ==
--- OUTSIDE RECORDS SUMMARY | 2023-10-23 10:33 | XMS_ITS | Clinical Summary ---
Author Name Unknown Organization [facility] Address [place], [place] [address] Care Team Providers Care Senior Sourcing Manager Name Role Phone Adrian Haskins MD Primary Care Provider [phone] Allergies No known active allergies Medications Medication Sig Dispensed Refills Start Date End Date Status amLODIPine (NORVASC) 5 mg tablet Take 5 mg by mouth once daily. 08/18/2023 Active rosuvastatin (CRESTOR) 20 mg tablet Take 20 mg by mouth at bedtime. 02/27/2020 Active tamsulosin (FLOMAX) 0.4 mg capsule Take 2 Tablets by mouth once daily. Active allopurinoL (ZYLOPRIM) 300 mg tablet Take 300 mg by mouth once daily. 02/23/2005 Active Synthroid 100 mcg tablet Take 100 mcg by mouth once daily. 06/25/2009 Active calcium with vitamin D3 (OS-MAREK 500 + D) tablet Take 1 Tablet by mouth once daily with a meal. Active fish oil-omega-3 fatty acids 300-1,000 mg Take 2 g by mouth once daily. Active multivit 81-nfaf-gsswnc 6-dha 29 mg iron-1 mg -300 mg cap Take 1 Capsule by mouth once daily. Active aspirin (ECOTRIN) 81 mg enteric coated tablet Take 1 Tablet (81 mg) by mouth once daily with a meal. 09/04/2023 Active metoprolol succinate (TOPROL XL) 25 mg Sustained-Release tabletIndications:HTN (hypertension),ASHRAF (dyspnea on exertion) Take 1 Tablet (25 mg) by mouth once daily. 90 Tablet 3 09/04/2023 Active Encounters Date Type Department Care Team Description 09/27/[address] [place] [address] Riky Gan MD Results (Stress test) 09/26/2023 9:30 AM CDT Ancillary Procedure [facility] [[email or web address] [address] [facility] [address] 09/26/2023 8:00 AM CDT Procedure Only [facility] [email or web address]] [address] [place] [address] Cardiovascular Diagnostic Testing (Nuclear... 09/26/2023 Travel 09/24/2023 Travel 09/04/2023 1:00 PM CDT Office Visit [facility] at [address] [address] Riky Gan MD Consult 09/03/2023 Travel 08/24/2023 Lab Requisition [facility] [phone] Unknown, Doctor 08/20/2023 Lab Requisition [facility] [phone] Robe John MD, PhD 08/18/2023 3:20 PM BURNING SUPERVISOR Ancillary Procedure [facility] at [facility] [address] [place] [address] from Last 3 Months Social History Tobacco Use Types Packs/Day Years Used Date Smoking Tobacco: Never Smokeless Tobacco: Never Tobacco Cessation:Counseling Given: Yes Alcohol Use Standard Drinks/Week Comments Yes 0 (1 standard drink = 0.6 oz pur e alcohol) 2-3 wine or beer a week Social Connections Answer Date Recorded Frequency of Communication with Friends and Fami ly Not on file 09/04/2023 Sex and Gender Information Value Date Recorded Sex Assigned at Not on file Gender Identity Not on file Sexual Orientation Not on file Obstetrics History Last Filed Vital Signs Vital Sign Reading Time Taken Comments Blood Pressure 134/72 09/26/2023 8:24 AM CDT Pulse 70 09/26/2023 8:24 AM CDT Temperature - - Respiratory Rate - - Oxygen Saturation 96% 09/26/2023 8:24 AM CDT Inhaled Oxygen Concentration - - Weight 94.6 kg (208 lb 8 oz) 09/04/2023 1:02 PM CDT Height 170.7 cm (5' 7.22) 04/13/2021 9:03 AM CD T Body Mass Index 32.44 04/13/2021 9:03 AM CDT Plan of Treatment Health Maintenance Due Date Last Done Comments Tdap 1955 Depression screening for age 12+ 1956 Hepatitis C screening for ag e 18-79 1962 Tetanus booster 1964 Zoster (shingles) series for age 50+ (1 of 2) 1994 Medicare Wellness for age 65+ 2009 Pneumococcal series for age 65+ (1 of 1 - PCV) 2009 BMI (ht and wt on same day) for age 18+ 04/13/2022 04/13/2021 COVID-19 vaccine series (2022- season) 2023 04/11/2022, 04/21/2021, 09/17/2020, Additional history exists Influenza for age 65+ 02/24/2024 Procedures Procedure Name Priority Date/Time Associated Diagnosis Comments NM CARDIAC MPI STRESS TEST Routine 09/26/2023 10:35 AM CDT HTN (hypertension) ASHRAF (dyspnea on exertion) ECHO TTE COMPLETE WO CONTRAST Routine 08/18/2023 3:56 PM BURNING SUPERVISOR Dyspnea NSTEMI (non-ST elevated myocardial infarction) (HC) REFERRAL ID/SUSC,ANAEROBE Routine 08/18/2023 12:34 AM BURNING SUPERVISOR LEGIONELLA AND PNEUMOCOCCAL URINE ANTIGEN Routine 08/17/2023 12:38 AM BURNING SUPERVISOR from Last 3 Months Results * NM CARDIAC MPI STRESS TEST (09/26/2023 10:35 AM CDT) Anatomical Region Laterality Modality HEART Nuclear Medicine 09/26/2023 8:34 AM CDT Narrative 09/26/2023 1:44 PM CDT ? Toll -free: [phone] ?[employer] ? MYOCARDIAL PERFUSION IMAGING REPORT REST/STRESS SINGLE ISOTOPE GATED SPECT IMAGING Patient Name: ?? DECLAN PADILLA ? Gender: M ?Height: 67 in Accession #: ?[id number] ? Weight: 208 lb Study Date: ? 09/26/2023 8:34:57 AM ? BSA: ?2.06 m? ? ? : ?1945 78 years ? BMI: ?32.58 kg/m? ? ? Ord. Prov.: ? RIKY GAN Performing Site [facility] Clinical History: ? Chest pain, lightheadeness and fatigue. No known coronary ?artery disease. Cardiac Risk Factors: Hypertension. Other Symptomatology: Cholecystectomy. Cardiac History: ?None known. Beta michaela/calcium channel michaela/nitrate taken today: No. Caffeine/methylxanthine taken within 12 hrs: ?No. Chest pain/discomfort at baseline: ?No. IMPRESSION 1. The peak heart rate was 157 bpm (112% MPHR); peak blood pressure was 191/85 mmHg. 2. Exercise duration and workload were adequate. The patient exercised 3:16 minutes on a Francois protocol. 3. See separate report for EKG intrepretation. 4. Left ventricular cavity size was normal (resting EDV 70 ml). 5. Overall left ventricular systolic function was normal without wall motion abnormalities. The post stress LVEF was visually estimated to be 65%. 6. Myocardial perfusion was normal. 7. There were no prior studies available for comparison. STRESS MPI PROCEDURE The patient was studied utilizing a same day rest/stress protocol. Myocardial perfusion imaging was performed at rest, 30 minutes following the intravenous injection of 8.0 mCi of 99mTc sestamibi. At peak exercise, the patient was injected via IV with 30.0 mCi of 99mTc sestamibi and exercise was continued for 1:00 minute. Symptoms developed during exercise included shortness of breath. Stress was stopped because of shortness of breath. Gated post-stress tomographic imaging was performed 50 minutes after stress. After image acquisition was completed, data was reconstructed in short, horizontal long and vertical long axis views and tomographic slices were generated. Protocol ??Total Time ? MPHR ? Max RPP Max Workload Francois ?? 3:16 minutes 112% of 141 bpm ??[address] ?4.6 METS ? HR ?BP Baseline 66 bpm ??134/72 mmHg ?Peak 157 bpm 191/85 mmHg FINDINGS Imaging - The overall quality of the study was excellent with mild soft tissue attenuation on rest and stress studies. Computerized motion correction was not applied. - SPECT perfusion images were normal without evidence of ischemia or infarction. - Post stress gated imaging revealed normal left ventricular size with a visually estimated LVEF of 65%. (Lab normals: LVEF >50%, LV Size <150 ml). - There was normal post-stress myocardial thickening and wall motion. - No right ventricular abnormalities were identified. - There was no evidence of abnormal lung or extracardiac activity. - Risk/extent of ischemia per ACC Noninvasive Risk Stratification Guideline: LOW RISK. This study was interpreted and electronically signed by Riky Salazar MD on 09/26/2023 1:44:46 PM. ??Final (Updated) ?? Procedure Note Riky Salazar MD - 09/26/2023 Toll -free: [phone] [employer] MYOCARDIAL PERFUSION IMAGING REPORT REST/STRESS SINGLE ISOTOPE GATED SPECT IMAGING Patient Name: DECLAN PADILLA Gender: Yordy Height: 67 in Weight: 208 lb Study Date: 09/26/2023 8:34:57 AM BSA: 2.06 m? ? ? : 1945 78 years BMI: 32.58 kg/m? ? ? Ord. Prov.: RIKY GAN Performing Site [facility] Clinical History: Chest pain, lightheadeness and fatigue. No knowncoronary artery disease. Cardiac Risk Factors: Hypertension. Other Symptomatology: Cholecystectomy. Cardiac History: None known. Beta michaela/calcium channel michaela/nitrate taken today: No. Caffeine/methylxanthine taken within 12 hrs: No. Chest pain/discomfort at baseline: No. IMPRESSION 1. The peak heart rate was 157 bpm (112% MPHR); peak blood pressure arz876/85 mmHg. 2. Exercise duration and workload were adequate. The patient exercised3:16 minutes on a Francois protocol. 3. See separate report for EKG intrepretation. 4. Left ventricular cavity size was normal (resting EDV 70 ml). 5. Overall left ventricular systolic function was normal without wallmotion abnormalities. The post stress LVEF was visually estimated to be65%. 6. Myocardial perfusion was normal. 7. There were no prior studies available for comparison. STRESS MPI PROCEDURE The patient was studied utilizing a same day rest/stress protocol.Myocardial perfusion imaging was performed at rest, 30 minutes followingthe intravenous injection of 8.0 mCi of 99mTc sestamibi. At peak exercise,the patient was injected via IV with 30.0 mCi of 99mTc sestamibi andexercise was continued for 1:00 minute. Symptoms developed during exerciseincluded shortness of breath. Stress was stopped because of shortness ofbreath. Gated post-stress tomographic imaging was performed 50 minutesafter stress. After image acquisition was completed, data wasreconstructed in short, horizontal long and vertical long axis views andtomographic slices were generated. Protocol Total Time MPHR Max RPP Max Workload Francois 3:16 minutes 112% of 141 bpm 14271 4.6 METS HR BP Baseline 66 bpm 134/72 mmHg Peak 157 bpm 191/85 mmHg FINDINGS Imaging - The overall quality of the study was excellent with mild soft tissue attenuation on rest and stress studies. Computerized motion correction wasnot applied. - SPECT perfusion images were normal without evidence of ischemia orinfarction. - Post stress gated imaging revealed normal left ventricular size with a visually estimated LVEF of 65%. (Lab normals: LVEF >50%, LV Size <150ml). - There was normal post-stress myocardial thickening and wall motion. - No right ventricular abnormalities were identified. - There was no evidence of abnormal lung or extracardiac activity. - Risk/extent of ischemia per ACC Noninvasive Risk StratificationGuideline: LOW RISK. This study was interpreted and electronically signed by Riky Salazar MD on 09/26/2023 1:44:46 PM. Final (Updated) Riky Gan MD NM * ECHO TTE COMPLETE WO CONTRAST (08/18/2023 3:56 PM BURNING SUPERVISOR) AORTIC VALVE MEAN PG 6 mmHg EJECTION FRACTION 68 % PEAK TR VELOCITY 2.8 m/s LVEDD 3.8 cm EJECTION FRACTION > 75% Anatomical Region Laterality Modality Ultrasound 08/18/2023 3:34 PM BURNING SUPERVISOR Narrative 08/18/2023 4:15 PM BURNING SUPERVISOR ECHOCARDIOGRAM DECLAN PADILLA ?Accession#: ?? [id number] : ?1945 78 years Study Date: ?? 08/18/2023 3:34:34 PM Gender: M ? BP: ? 161/80 mmHg Height: 170.00 cm ? BSA: ?2.29 m? ? ? Weight: 122.00 kg ? Tech: ? MJS ?Referring MD: EVELIA GUTIERREZ Site: ? [facility] Reading Location: Mobile [facility] Patient Location: Inpatient. Procedure: 2D, Color Doppler and Spectral Doppler. Indication for study: DYSPNEA Cardiac Rhythm: Normal sinus.Study quality: Good. Final Impressions: 1. Normal LV size, moderately increased wall thickness, hyperdynamic global systolic function with an estimated EF of > 75%. 2. The aortic valve is trileaflet, no stenosis and mild regurgitation. 3. Right ventricular cavity size is normal, global systolic RV function is normal. Comparison Compared to prior exam of 03/02/2020: Mild aortic regurgitation is now present. Chamber Sizes and Function Normal left ventricular size, moderately increased wall thickness, hyperdynamic global systolic function with an estimated EF of > 75%. Left atrial size is normal. Right ventricular cavity size is normal, global systolic RV function is normal. The right atrium is normal. Right atrial area is 14 cm? ? ?. The pulmonary artery is of normal size and origin. The sinus of Valsalva is normal for age/sex/bsa. The ascending aorta is normal sized. Valves, RV Pressures and Diastolic Function The aortic valve is trileaflet, no stenosis and mild regurgitation. The mitral valve is normal in structure, no mitral regurgitation. Normal diastolic function. The tricuspid valve is normal in structure. Tricuspid regurgitation is trace regurgitation. The tricuspid regurgitant velocity is 2.8 m/s, the estimated right ventricular systolic pressure is 32 mmHg plus right atrial pressure. The pulmonic valve is normal. No pulmonary regurgitation. TTE images do not appear adequate for transcather intervention with patient supine. Masses, Effusion, Shunts There is no pericardial effusion. The inferior vena cava is normal sized, respiratory size variation greater than 50%. No left to right shunting was detected by limited color flow Doppler interrogation of the interatrial septum. MEASUREMENTS AND CALCULATIONS 2-D Measurements and LV Function: LVID (d) 3.8 cm LV FS% (2D) ?? 33 % LVID (s) 2.5 cm LVOT diameter 2.2 cm IVS (d) ??1.5 cm HR ?77 bpm LVPW (d) 1.4 cm LA Vol index ??20 ml/m2 Ao Sinus 3.9 cm RA area ? 14 cm? ? ? Asc Ao ?? 3.3 cm RV Max 4C (d) 3.4 cm Diastology: Mitral ?Tissue Doppler E Peak 0.9 m/s ??e', Septum ? 0.08 m/s A Peak 1.0 m/s ??e', Lateral ?0.09 m/s E/A ?0.9 ?E/e' Average ?? 10.23 DT ? 265 msec Aortic Valve: Vmax ? 1.7 m/s ??TIN (V) ?? 2.68 cm? AI P 1/2 460 msec VTI ?0.32 m ?? TIN (I) ?? 2.97 cm? ? ? LVOT V max 1.2 m/s ??Max PG ?11 mmHg LVOT VTI ?? 0.25 m ?? Mean PG ?? 6 mmHg SV ? 95 ml ?Dim Index 0.79 SV index ?? 42 ml/m? ? ? CO ?7.3 l/min ?CI ?3.2 l/min/m? ? ? Mitral Valve: MVA ?2.9 cm? ? ? MV P 1/2 77 msec Tricuspid Valve and estimated PA pressures: TR Vmax 2.8 m/s TAPSE 3.0 cm TR maxG 32 mmHg . This study was interpreted by an [facility] accredited facility. CC: [facility] (med records) [facility], Med/Surg - IP [facility]. ??Final ?? Procedure Note Ronald Gallardo MD - 08/18/2023 ECHOCARDIOGRAM DECLAN PADILLA : 1945 78 years Study Date: 08/18/2023 3:34:34 PM Gender: M BP: 161/80 mmHg Height: 170.00 cm BSA: 2.29 m? ? ? Weight: 122.00 kg Tech: [facility] Referring MD: EVELIA GUTIERREZ Site: [facility] Reading Location: Mobile [facility] Patient Location: Inpatient. Procedure: 2D, Color Doppler and Spectral Doppler. Indication for study: DYSPNEA Cardiac Rhythm: Normal sinus.Study quality: Good. Final Impressions: 1. Normal LV size, moderately increased wall thickness, hyperdynamicglobal systolic function with an estimated EF of > 75%. 2. The aortic valve is trileaflet, no stenosis and mild regurgitation. 3. Right ventricular cavity size is normal, global systolic RV functionis normal. Comparison Compared to prior exam of 03/02/2020: Mild aortic regurgitation is now present. Chamber Sizes and Function Normal left ventricular size, moderately increased wall thickness,hyperdynamic global systolic function with an estimated EF of > 75%. Leftatrial size is normal. Right ventricular cavity size is normal, globalsystolic RV function is normal. The right atrium is normal. Right atrialarea is 14 cm? ? ?. The pulmonary artery is of normal size and origin. Thesinus of Valsalva is normal for age/sex/bsa. The ascending aorta is normalsized. Valves, RV Pressures and Diastolic Function The aortic valve is trileaflet, no stenosis and mild regurgitation. Themitral valve is normal in structure, no mitral regurgitation. Normaldiastolic function. The tricuspid valve is normal in structure. Tricuspidregurgitation is trace regurgitation. The tricuspid regurgitant velocityis 2.8 m/s, the estimated right ventricular systolic pressure is 32 mmHgplus right atrial pressure. The pulmonic valve is normal. No pulmonaryregurgitation. TTE images do not appear adequate for transcatherintervention with patient supine. Masses, Effusion, Shunts There is no pericardial effusion. The inferior vena cava is normal sized,respiratory size variation greater than 50%. No left to right shunting wasdetected by limited color flow Doppler interrogation of the interatrialseptum. MEASUREMENTS AND CALCULATIONS 2-D Measurements and LV Function: LVID (d) 3.8 cm LV FS% (2D) 33 % LVID (s) 2.5 cm LVOT diameter 2.2 cm IVS (d) 1.5 cm HR 77 bpm LVPW (d) 1.4 cm LA Vol index 20 ml/m2 Ao Sinus 3.9 cm RA area 14 cm? ? ? Asc Ao 3.3 cm RV Max 4C (d) 3.4 cm Diastology: Mitral Tissue Doppler E Peak 0.9 m/s e', Septum 0.08 m/s A Peak 1.0 m/s e', Lateral 0.09 m/s E/A 0.9 E/e' Average 10.23 DT 265 msec Aortic Valve: Vmax 1.7 m/s TIN (V) 2.68 cm? ? ? AI P 1/2 460 msec VTI 0.32 m TIN (I) 2.97 cm? ? ? LVOT V max 1.2 m/s Max PG 11 mmHg LVOT VTI 0.25 m Mean PG 6 mmHg SV 95 ml Dim Index 0.79 SV index 42 ml/m? ? ? CO 7.3 l/min CI 3.2 l/min/m? ? ? Mitral Valve: MVA 2.9 cm? ? ? MV P 1/2 77 msec Tricuspid Valve and estimated PA pressures: TR Vmax 2.8 m/s TAPSE 3.0 cm TR maxG 32 mmHg . This study was interpreted by an [facility] accredited facility. CC: [facility] (med records) [facility], Med/Surg - IP [facility]. Final Evelia Gutierrez MD ECHO ORD * (ABNORMAL) REFERRAL ID/SUSC,ANAEROBE (08/18/2023 12:34 AM BURNING SUPERVISOR) [facility] CULTURE RESULT(A) 08/27/2023 8:00 AM BURNING SUPERVISOR [facility] CULTURE Parvimonas micra 08/27/2023 8:00 AM BURNING SUPERVISOR [facility] Other BLOOD SPECIMEN / Unknown Client Collect / Unknown 08/18/2023 12:34 AM BURNING SUPERVISOR 08/24/2023 3:13 PM BURNING SUPERVISOR Doctor Unknown MICROBIOLOGY [facility] [address] [place] [address], * LEGIONELLA AND PNEUMOCOCCAL URINE ANTIGEN (08/17/2023 12:38 AM BURNING SUPERVISOR) STREP PNEUMO ANTIGEN Negative 08/20/2023 5:18 PM BURNING SUPERVISOR [facility] Comment:Presumptive negative for pneumococcal pneumonia, suggesting no current or recent pneumococcal infection. Infection due to S. pneumoniae cannot be ruled out since the antigen present in the sample may be below the detection limit of the test. LEGIONELLA ANTIGEN Negative 08/20/2023 5:18 PM BURNING SUPERVISOR [facility] Comment:Negative for L.pneum ophila serogroup 1 antigen, suggesting no recent or current infection. Infection due to Legionella cannot be ruled out since other serogroups and species may cause disease, antigen may not be present in urine in early infection, and the level of antigen present may be below the detection limit of the test. Low test sensitivity in patients with mild pneumonia. Urine URINE SPECIMEN / Unknown Client Collect / Unknown 08/17/2023 12:38 AM BURNING SUPERVISOR 08/20/2023 3:45 PM BURNING SUPERVISOR Robe John MD, PhD MICROBIOLOGY [facility] [address] [place] [id number], from Last 3 Months Care Teams Senior Sourcing Manager Relationship Specialty Start Date End Date Adrian Haskins MD [address] [facility] [place] [phone] PCP - General Family Practice 04/13/21
--- OUTSIDE RECORDS SUMMARY | 2023-10-23 10:33 | XMS_ITS ---
Author Name Unknown Organization [facility] Address [address] [place] [address] Care Team Providers Care Systems Checkout Mechanic Name Role Phone Unavailable Primary Care Provider Unavailabl e Active Problems Problem Noted Date Diagnosed Date Primary Malignant Neoplasm Of Prostate Cancer Staging:Clinical stage from 08/19/2021:Stage IIC(cT2a, cN0, cM0, PSA: 11.2, Grade Group: 4) - Signed by Branden Fermin M.D., M.S. on 11/24/2021 Current Oncology Plans LEUPROLIDE ACETATE EVERY 12 WEEKS* Plan Start Date:03/28/2022 Plan Provider:Arcadio Enciso M.D. Linked Problems Primary Malignant Neoplasm O f Prostate (HCC) Treatment Medications No medications scheduled. Past Plans Hem/Onc Therapy Plan 2 Plan Name Start Date Discontinue Date Treatment Medications Discontinue Reason Plan Provider LEUPROLIDE ACETATE EVERY 16 WEEKS 09/11/2022 09/06/2023 No medications scheduled. Therapy Complete Valerie Benson APRN, C.N.P., D.N.P. Radiation Treatments * Plan Last Treated On Elapsed Days Fractions Treated Prescribed Fraction Dose Prescribed Total Dose [id number] 01/11/2022 36 26 of 26 270 cGy 7,020 cGy Reference Point Last Treated On Elapsed Days Session Dose Total Dose [id number] 01/11/2022 36 270 cGy 7,020 cGy
--- OUTSIDE RECORDS SUMMARY | 2023-10-23 10:33 | XMS_ITS | Clinical Summary ---
Author Name Unknown Organization [facility] Address [address] [place] [address] Care Team Providers Care Net Finisher Name Role Phone Unavailable Primary Care Provider Unavailabl e Source Comments Patient records contain information from all sites at [facility]. For routine questions regarding patient records, call [phone] during business hours, M-F 8:00 AM - 5:00 PM Central Time. Record requests for emergency care only can be directed to [phone] at any time.[facility] Allergies No known active allergies Medications Medication Sig Dispensed Refills Start Date End Date Status atenoloL (TENORMIN) 25 mg tablet atenolol 25 mg tablet 03/17/2021 A ctive triamterene-hydroCH LOROthiazide (MAXZIDE-25) 37.5-25 mg per tablet triamterene 37.5 mg-hydrochlorothiazid e 25 mg tablet Active allopurinoL (ZYLOPRIM) 300 mg tablet allopurinol 300 mg tablet 03/17/2021 Active rosuvastatin (CRESTOR) 20 mg tablet rosuvastatin 20 mg tablet 03/17/2021 Active tamsulosin (FLOMAX) 0.4 mg 24 hr capsule tamsulosin 0.4 mg capsule TAKE 2 TABLETS BY MOUTH EVERY DAY 03/17/[address] tablet aspirin 81 mg tablet,delayed release 03/17/2021 Active potassium chloride (KLORCON/K-TAB) 10 mEq ER tablet potassium chloride ER 10 mEq tablet,extended release TAKE 1 TABLET BY MOUTH EVERY DAY Active levothyroxine (SYNTHROID, LEVOTHROID) 100 mcg tablet Synthroid 100 mcg tablet 03/17/2021 Active diphenhydrAMINE-abraham taminophen (TYLENOL PM) 25-500 mg per tablet Bedtime Active omega-3 fatty acids-fish oil 300-1,000 mg per capsule Take 2 g by mouth daily. Active multivitamin capsule Take 1 capsule by mouth daily. Active clobetasoL (TEMOVATE) 0.05 % cream clobetasol 0.05 % topical cream 03/17/2021 Active calcium carbonate-vitamin D3 1,250 mg (500 mg calcium)-5 mcg (200 Unit) per tablet Take 1 tablet by mouth daily with breakfast. Active leuprolide, 3 month, (Tom, 3 month,) 22.5 mg injection Inject 22.5 mg under the skin once for 1 dose. At [facility] the week of December 21, 2021 1 each 12/23/2021 Active Active Problems Problem Noted Date Diagnosed Date Primary Malignant Neoplasm Of Prostate 2 Cancer Staging:Clinical stage from 08/19/2021:Stage IIC(cT2a, cN0, cM0, PSA: 11.2, Grade Group: 4) - Signed by Branden Fermin M.D., M.S. on 11/24/2021 Encounters Date Type Department Care Team Description 08/06/2023 Orders Only Division of Gastroenterology in [place], [place] [address] [place] [address] Ward Reich M.D. Genetic Susceptibility To Disease from Last 3 Months Family History Medical History Relation Name Comments Bile duct carcinoma Mother Relation Name Status Comments Mother Social History Tobacco Use Types Packs/Day Years Used Date Smoking Tobacco: Never Smokeless Tobacco: Never Alcohol Use Standard Drinks/Week Comments Yes 2 (1 standard drink = 0.6 oz pur e alcohol) 2-3 wine or beer per week Humiliation, Afraid, Rape, and Kick questionnair e Answer Date Recorded Within the last year, have y ou been afraid of your partner or ex-partner? No 09/04/2022 Within the last year, have y ou been humiliated or emotionally abused in other ways by your partner or ex-partner? No Within the last year, have y ou been kicked, hit, slapped, or otherwise physically hurt by your partner or ex-partner? No 09/04/2022 Within the last year, have y ou been raped or forced to have any kind of sexual activity by your partner or ex-partner? No 09/04/2022 Social Connection and Isolat ion Panel [NHANES] Answer Date Recorded In a typical week, how many times do you talk on the phone with family, friends, or neighbors? Three times a week 09/04/2022 How often do you get togethe r with friends or relatives? Once a week 09/04/2022 How often do you attend chur or sabianist services? More than 4 times per year 09/04/2022 Do you belong to any clubs o r organizations such as temple groups, unions, fraternal or athletic groups, or school groups? Yes 09/04/2022 How often do you attend meet ings of the clubs or organizations you belong to? More than 4 times per year 09/04/2022 Are you , , di vorced, , never , or living with a partner? 09/04/2022 AUDIT-C Answer Date Recorded Q1: How often do you have a drink containing alc ohol? 2-3 times a week 09/04/2022 Q2: How many drinks containi ng alcohol do you have on a typical day when you are drinking? 1 or 2 09/04/2022 Q3: How often do you have si x or more drinks on one occasion? Never 09/04/2022 Overall Financial Resource Strain (CARDIA) Answe r Date Recorded How hard is it for you to pa y for the very basics like food, housing, medical care, and heating? Not hard at all 09/04/2022 [facility] of Occupat ional Health - Occupational Stress Questionnaire Answer Date Recorded Do you feel stress - tense, restless, nervous, or anxious, or unable to sleep at night because your mind is troubled all the time - these days? Only a little 09/04/2022 Exercise Vital Sign Answer Date Recorde d On average, how many days pe r week do you engage in moderate to strenuous exercise (like a brisk walk)? 5 days 09/04/2022 On average, how many minutes do you engage in exercise at this level? 30 min 09/04/2022 Hunger Vital Sign Answer Date Recorded Within the past 12 months, y ou worried that your food would run out before you got the money to buy more. Never true 09/05/19 23 Within the past 12 months, t he food you bought just didn't last and you didn't have money to get more. Never true 09/04/2022 PRAPARE - Transportation Answer Date Re corded In the past 12 months, has l ack of transportation kept you from medical appointments or from getting medications? No 08/23 In the past 12 months, has l ack of transportation kept you from meetings, work, or from getting things needed for daily living? No 09/04/2022 Housing Stability Vital Sign Answer Walker e Recorded In the last 12 months, was t here a time when you were not able to pay the mortgage or rent on time? No 09/04/2022 In the last 12 months, how many places have you lived? 1 09/04/2022 In the last 12 months, was t here a time when you did not have a steady place to sleep or slept in a senior living (including now)? No 09/04/2022 Nutrition Answer Date Recorded Nutrition: EVOO Fat Source Yes 09/04 On average, how many serving s of fruits and vegetables do you eat per day (serving size is equal to 1 cup or approximately the size of a tennis ball)? 2-3 09/04/2022 Dental Answer Date Recorded Dental: Regular Dentist Yes 11/21/19 Employment Answer Date Recorded Employment status Retired 09/04/2022 Education Answer Date Recorded What is the highest level of school you have completed or the highest degree you have received? Professional school degree (e.g., , DDS, DVM, EDUARD) 11/20/2021 Sex and Gender Information Value Date Recorded Sex Assigned at Male 11/20/2021 12:34 PM CDT Gender Identity Male 11/20/2021 12:34 PM CDT Sexual Orientation Straight 11/20/2021 12 :34 PM CDT Last Filed Vital Signs Vital Sign Reading Time Taken Comments Blood Pressure 152/68 01/18/2023 12:55 PM CDT Pulse 65 01/18/2023 12:55 PM CDT Temperature 36.8 ??C (98.3 ??F) 01/18/2023 12:55 PM C DT Respiratory Rate - - Oxygen Saturation 97% 11/22/2021 3:08 PM CDT Inhaled Oxygen Concentration - - Weight 91.6 kg (202 lb) 01/18/2023 12:55 PM CDT Height - - Body Mass Index - - Plan of Treatment Upcoming Encounters Date Type Department Care Team (Late st Contact Info) Description 01/16/2024 1:00 PM CDT Appointment Department of Radiation Oncology in [place], [place] [address] [place] [id number] Arcadio Enciso M.D. [address] [place] [address] Health Maintenance Due Date Last Done Comments Hepatitis C Screening 1945 Thyroid Stimulating Hormone (TSH) test for thyroid function 1945 DTaP,Tdap,and Td Vaccines (1 - Tdap) 02/26/2014 02/25/2014, 01/27/2004 Pneumococcal vaccine (65+ years) (2 of 2 - PPSV23 or PCV20) 10/27/2015 09/01/2015, 05/14/2014 Zoster Vaccines (2 of 2) 05/05/2020 03/10/2020, 05/25 COVID-19 Vaccine ( season) 2023 04/26/2023, 04/11/2022, 10/20/2021, Additional history exists Depression Screening (Annual PHQ-2) 06/25/2023 Fall Risk Screen (Annual) 06/25/2023 Influenza Vaccine Completed 03/27/2023, , 04/02/2019, Additional history exists HPV Vaccines Aged Out No longer eligi ble based on patient's age to complete this topic Medical Devices Implanted Type Area Online Activist Device Identifier Shelf Expiration Date Model / Serial / Lot Marker Tissue Biomarc Kv 1x5 - [id number] Implanted:Qty : 4 on 11/22/2021 by Adrian Ortiz M.D. at [facility] Marker [facility] [id number] 03/17/2026 [id number] / / [id number]
--- OUTSIDE RECORDS SUMMARY | 2023-10-23 10:33 | XMS_ITS ---
Author Name Unknown Organization [facility] Address [address] [place] [address] Care Team Providers Care District Captain Name Role Phone Unavailable Unavailable Unavailable Surgery Details Not on file Complications Check Surgery Details section. Procedure Estimated Blood Loss Check Surgery Details section. Procedure Findings Check Surgery Details section. Procedure Specimens Taken Check Surgery Details section.
--- OUTSIDE RECORDS SUMMARY | 2023-10-23 10:33 | XMS_ITS | Referral Summary ---
Author Name Unknown Organization [facility] Address [address] [place] [address] Care Team Providers Care Radiologic Technology Teacher Name Role Phone Unavailable Primary Care Provider Unavailabl e Source Comments Patient records contain information from all sites at [facility]. For routine questions regarding patient records, call [phone] during business hours, M-F 8:00 AM - 5:00 PM Central Time. Record requests for emergency care only can be directed to [phone] at any time.[facility] Encounters Date Type Department Care Team Description 08/06/2023 Orders Only Division of Gastroenterology in [place], [place] [address] [place] [address] Ward Reich M.D. Genetic Susceptibility To Disease from Last 3 Months Allergies No known active allergies Medications Medication [...] daily with breakfast. Active leuprolide, 3 month, (Elikimberlyd, 3 month,) 22.5 mg injection Inject 22.5 mg under the skin once for [address] [facility] the week of December 21, 2021 1 each 12/23/2021 Active Active Problems Problem Noted Date Diagnosed Date Primary Malignant Neoplasm Of Prostate 2 Cancer Staging:Clinical stage from 08/19/2021:Stage IIC(cT2a, cN0, cM0, PSA: 11.2, Grade Group: 4) - Signed by Branden Fermin M.D., M.S. on 11/24/2021 Social History Tobacco Use Types Packs/Day Years [...] How often do you attend chur or quaker services? More than 4 times per year 09/04/2022 Do you belong to any clubs o r organizations such as taoist groups, unions, fraternal or athletic groups, or [...] and heating? Not hard at all 09/04/2022 [facility] of Occupat ional Health - Occupational Stress [...] place to sleep or slept in a fci (including now)? No 09/04/2022 Nutrition Answer Date [...] you have received? Professional school degree (e.g., MD, DDS, DVM, EDUARD) 11/20/2021 Sex and Gender [...] CDT Appointment Department of Radiation Oncology in [place], [place] [address] [place] [address] Arcadio Enciso M.D. [address] [place] [address] Medical Devices Implanted Type Area Hairspring Inspector Device Identifier Shelf Expiration Date Model / Serial / Lot Marker Tissue Biomarc Kv 1x5 - [id number] Implanted:Qty : 4 on 11/22/2021 by Adrian Ortiz M.D. at [facility] Imaging Marker [facility] [id number] 03/17/2026 [id number] / / [id number] [address]
--- OUTSIDE RECORDS SUMMARY | 2023-10-23 10:33 | XMS_ITS | Encounter Summary ---
Author Name Unknown Organization [facility] Address [address] [place] [address] Care Team Providers Care Business Intelligence Manager Name Role Phone Unavailable Primary Care Provider Unavailabl e Encounter Details Date Type Department Care Team (Late st Contact Info) Description 08/06/2023 Orders Only Division of Gastroenterology in [place], [place] [address] [place] [address] Ward Reich M.D. [address] [place] [address] Genetic Susceptibility To Disease Social History Tobacco Use Types Packs/Day Years [...] How often do you attend chur or advent services? More than 4 times per year 09/04/2022 Do you belong to any clubs o r organizations such as rastafari groups, unions, fraternal or athletic groups, or [...] and heating? Not hard at all 09/04/2022 [facility] of Occupat ional Health - Occupational [...] place to sleep or slept in a half-way (including now)? No 09/04/2022 Nutrition Answer Date [...] Orientation Straight 11/20/2021 12 :34 PM CDT documented as of this encounter Plan of Treatment Upcoming Encounters Date Type Department Care Team (Late st Contact Info) Description 01/16/2024 1:00 PM CDT Appointment Department of Radiation Oncology in [place], [place] [address] [place] [phone] Arcadio Enciso M.D. [address] [place] [address] documented as of this encounter Procedures Procedure Name Priority Date/Time Associated Diagnosis Comments EXT TAPESTRY Routine 05/23/2022 12:00 AM [facility] Genetic Susceptibility To Disease documented in this encounter Results * EXT Tapestry (05/23/2022 12:00 AM [employer]) Gene Studied BRCA1,BRCA2,MLH1,MSH 2, MSH6,PMS2,EPCAM,APOB,L DLR,LDLRAP1,PCSK9 07/06/2022 12:00 AM [employer] [facility] Genetic Disease Assessed Evaluation of 11 genes associated with Hereditary Breast and Ovarian Cancer, Blankenship Syndrome and Familial Hypercholesterolemia. 07/06/2022 12:00 AM [employer] [facility] Genetic Analysis Overall Interpretation Negative results through Tapestry do not replace diagnostic testing for patients with a personal or family history of cancer/hypercholestero lemia due to limitations with methodology. Consider a referral to a genetic counselor for diagnostic testing if warranted. 07/06/2022 12:00 AM [employer] [facility] Genetic Analysis Report See Tapestry PDF Report No actionable gene changes were detected in the genes that cause Familial Hypercholesterolemia. The genes tested for this condition were APOB, LDLR, LDLRAP1, and PCSK9.No actionable gene changes were detected in the genes that cause Hereditary Breast and Ovarian Cancer. The genes tested for this condition were BRCA1 and BRCA2.No actionable gene changes were detected in the genes that cause Blankenship Syndrome. The genes tested for this condition were MLH1, MSH2, MSH6, PMS2 and EPCAM. DNA extracted from this individual's sample was captured and enriched using a custom set of reagents (Oony+ chemistry). Targeted regions were sequenced using an Illumina DNA sequencing system. Your sequence was matched to a modified version of the industry standard reference genome (GRCh38). Variant calling was completed using a customized version of [employer]'s Base [employer] software, requiring 20x coverage for validated variant calls. Copy Number Variants (CNVs) were called using a proprietary bioinformatics pipeline that compared the coverage profile of your sample with the coverage profiles of other reference set samples. [facility] [employer] then analyzed the generated variant data for the exons and 10 bp of flanking intronic sequence (and select tagged intronic variants) of the 11 genes included in [facility] from the [employer] Database. Your sample was reviewed for single nucleotide variants (SNVs), indels up to 20 bp in length, and CNVs that are known or predicted to be actionable. NOTE: This assay has limited sensitivity to CNVs smaller than a few exons. APOB, PCSK9, and LDLR interpretation and reporting is specific to the Familial Hypercholesterolemia phenotype. Variants associated with other phenotypes such as Hypobetalipoproteinemi a are not included. Some known complex variants like the inversion of exons 1-7 in the MSH2 gene (Alphonse inversion), exons 11-15 of the PMS2 gene, or variants within or immediately adjacent to long homopolymer runs are not analyzed or reported. There are regions that are not covered, such as deep intronic, promoter, and enhancer regions. This assay cannot detect all variants known to increase disease risk. Other clinical diagnostic testing for these conditions could identify variants not detected by this test. If you have had previous testing, these results should be taken into consideration during risk assessments and medical management. 07/06/2022 12:00 AM [employer] [facility] Human Reference Sequence Assembly [id number] 07/06/2022 12:00 AM [employer] [facility] Saliva (Mouth) 05/23/2022 Ward Reich M.D. LAB GENETI C TESTING [place] [address], [address] [place] [address], [facility] [place] [address], [address] [place] [address] documented in this encounter Visit Diagnoses Diagnosis Genetic Susceptibility To Disease documented in this encounter
== END 2023-10-23 10:31 | disposition home or self-care (01) ==
LOC: NFLDREF 10:31
PROVIDERS: PCP Family Medicine; Visit Provider Family Medicine
DX: D64.9 Anemia, unspecified (principal)
CPT/HCPCS: 82728

== ENCOUNTER 2024-03-10 15:30 | Outpatient (RCR) | payer MEDICARE, OTHER, SELFPAY ==
--- NOTE | 2024-02-20 09:56 | PT.OPEX ---
PT [place] Outpatient Eval PT [facility] Outpatient Eval Start: 02/20/24 08:32 Freq: Status: Active Protocol: Document 02/20/24 08:32 ROGER (Rec: 02/20/24 09:53 ROGER [id number]) E-signed By Joyce Barrett, PT Physical Therapy Outpatient Evaluation Insurance Information Recert Due Date 05/16/24 Insurance Name Medicare B Medical Diagnosis Right hip pain Treating Diagnosis Right hip pain, limited hip ROM, muscle weakness Imaging Report Information X-ray 02/19/24:show relatively well-preserved joint spaces in bilateral hips with only mild narrowing relatively uniformly bilaterally. Multiple metallic springs or clips are seen within the lower pelvis region. Referring Kelvin Stewart Subjective Preferred Name Lila Manriquez (Lila) reports to PT with primary complaint of lateral right hip pain with initial gradual and insidious onset 3 weeks ago. Has become severe to the point of needing to use SEC with all ambulation for balance and pain control. Does have a history of low back pain however well managed at this time. Pain does not travel down the leg. He has not used ice or heat and just started taking advil yesterday per PA recommendation. He is limited with standing and walking on the right leg. No pain with sitting or laying/sleeping. He will be going on a trip up to the [facility] next week. Has been able to continue previous morning exercises without pain (bridging, hooklying LTR, hip ER stretching). PMH: anemia, HTN, NSTEMI, stroke-mild affecting right side, prostate CA Pain Comments 510 worst Date of Last Physician Visit 02/19/24 Current Work Status Retired Objective Other/Pertinent Objective Gait: ambulating with SEC L UE , R hip circumduction, mid foot strike, too many toes sign, limited stance time R LE , limited toe off LE ROM (R/L): -Hip Ext: neutral/10 -Hip Flx: 100/100 -Hip ER: 40/40 -Hip IR: 8/8 -Hip Abd: 20/20 TTP R piriformis and glut med distal insertion, PTP greater trochanter Braulio test: + pain R LE LE Strength (R/L): -Hip Abd: R: 2+/5 pain, L: 4/5 -Hip Ext: R: 4/5, L: 4/5 -Hip Flx: R: 4/5 no pain, L: 4 +/5 SL balance: unable to transfer full weight onto R LE d/t pain Functional Test Performed & Score LEFS: 30/80 Assessment Assessment/Impression Patient is a 78 year old male presenting to physical therapy for evaluation and treatment of right hip pain. Patient presents with pain across lateral hip, antalgic gait, muscle restriction in piriformis, TFL and ITB, hip abd muscle weakness consistent with referring diagnosis. These impairments are limiting the patients ability to ambulate any length of distance without pain and without AD. Patient appears motivated to participate in PT and presents with good prognosis to improve mobility, strength, proprioception and return to functional activities with skilled physical therapy intervention. Plan of Care Rehabilitation Potential Good Physical Therapy Goals In 4 visits: Pt will demonstrate equal and pain free hip ROM in order to improve gait mechanics Pt will be able to transition from SEC to no AD with normal gait mechanics and with <2/10 hip pain In 8 visits: Pt will exhibit 9 pt improvement in LEFS Outcome measure to demonstrate functional improvement and progress towards goals. Pt will demonstrate at least 4 /5 hip strength in order to progress to more functional exercises Pt will be able to walk for at least 20 min without AD with <2/10 pain for community ambulation Treatment Plan/Direct Interventions Gait Training,Ice/Cold/ Vasopneumatic,Joint Mobilization,Manual Therapy, Neuromuscular Re-ed,Self-Care/ Home Management,Therapeutic Activities,Therapeutic Exercises Frequency/Duration 1x/wk for 4 weeks with additional 2-4 sessions prn based on progress Patient Will Be Discharged From Therapy Completion of LTG(s), Independent w/HEP, Independently Progressing Evaluation Billing Untimed Code Treatment Minutes 15 Complexity Low Certification Information Initial Certification Date 02/20/24 Ending Certification Date 05/16/24 Provider Signature Required Yes Provider Signature Shows Agreement With POC & Medical Necessity Physician NPI Number Write NPI# Here Physician Comment/Change : Physician Signature & Date Requested Please Sign/Date Here
== END 2024-06-13 09:23 | disposition home or self-care (01) ==
PROVIDERS: PCP Family Medicine; Visit Provider Physician Assistant Surgical
DX: M70.61 Trochanteric bursitis, right hip (principal); M25.551 Pain in right hip; M62.81 Muscle weakness (generalized); Z74.09 Other reduced mobility; Z51.89 Encounter for other specified aftercare
CPT/HCPCS: 97110; 97140; 97161

== ENCOUNTER 2024-03-25 09:47 | Outpatient (CLI) | payer MEDICARE, OTHER, SELFPAY ==
--- OUTSIDE RECORDS SUMMARY | 2024-03-25 09:51 | XMS_ITS | Clinical Summary ---
Author Organization [facility] Address [place], [place] [address] Care Team Providers Care Cut Off Sawyer Shingle Mill Name Role Phone Adrian Haskins MD Primary Care Provider [phone] Allergies No known active allergies Medications Medication [...] g by mouth once daily. Active multivit 49-tzkr-vwzben 6-dha 29 mg iron-1 mg -300 mg cap Take 1 Capsule by mouth once daily. Active aspirin (ECOTRIN) 81 mg enteric coated tablet Take 1 Tablet (81 mg) by mouth once daily with a meal. 09/04/2023 Active metoprolol succinate (TOPROL XL) 25 mg Sustained-Release tabletIndications:HTN (hypertension),ASHRAF (dyspnea on exertion) Take 1 Tablet (25 mg) by mouth once daily. 90 Tablet 3 09/04/2023 Active Social History Tobacco Use Types Packs/Day Years [...] 65+ (1 of 1 - PCV) 2009 RSV vaccine for adults or (1 - 1-dose 75+ series) 2019 BMI (ht and wt on same day) for age 18+ 04/13/2022 04/13/2021 COVID-19 vaccine series ( season) 2024 04/11/2022, 04/21/2021, 09/17/2020, Additional history exists Influenza for age 65+ 02/24/2024 Care Teams [employer] Relationship Specialty Start Date End Date Adrian Haskins MD [address] [facility] [place] [phone] PCP - General Family Practice 04/13/21
--- OUTSIDE RECORDS SUMMARY | 2024-03-25 09:51 | XMS_ITS | Encounter Summary ---
Author Organization [facility] Address [address] [place] [address] Care Team Providers Care Pick Pulling Machine Operator Name Role Phone Unavailable Primary Care Provider Unavailabl e Reason for Visit * Reason Onset Date Comments Pre-visit Intake 01/10/2024 Encounter Details Date Type Department Care Team (Latest Contact Info) Description 01/10/2024 10:00 AM CDT Clinical Communication Virtual Review in [address] [phone] Pre-visit Intake Social History Tobacco Use Types Packs/Day Years Used Date Smoking Tobacco: Never Smokeless Tobacco: Never Alcohol Use Standard Drinks/Week Comments Yes 2 (1 standard drink = 0.6 oz pur e alcohol) 2-3 wine or beer per week [facility] Utilities Answer Date Recorded In the past 12 months has [facility] [employer], gas, oil, or water [employer] threatened to shut off services in your home? No 01/09/2024 Humiliation, Afraid, Rape, and Kick questionnair e [...] How often do you attend chur or cheondoism services? More than 4 times per year 09/04/2022 Do you belong to any clubs o r organizations such as confucianist groups, unions, fraternal or athletic groups, or [...] and heating? Not hard at all 09/04/2022 [facility] - Occupational Stress Questionnaire Answer Date [...] to strenuous exercise (like a brisk walk)? 3 days 01/09/2024 On average, how many minutes do you engage in exercise at this level? 20 min 01/09/2024 Hunger Vital Sign Answer Date Recorded Within the past 12 months, y ou worried that your food would run out before you got the money to buy more. Never true 01/09/20 24 Within the past 12 months, t he food you bought just didn't last and you didn't have money to get more. Never true 01/09/2024 PRAPARE - Transportation Answer Date Re corded In the past 12 months, has l ack of transportation kept you from medical appointments or from getting medications? No 12/23 In the past 12 months, has l ack of transportation kept you from meetings, work, or from getting things needed for daily living? No 01/09/2024 Nutrition Answer Date Recorded On average, how many serving s of fruits and vegetables do you eat per day (serving size is equal to 1 cup or approximately the size of a tennis ball)? 3-5 01/09/2024 Dental Answer Date Recorded Dental: Regular Dentist Yes 11/21/19 Employment Answer Date Recorded Employment status Retired 01/09/2024 Housing Stability Answer Date Recorded What is your living situation today? I have a [facility] place to live 01/09/2024 Education Answer Date Recorded What is the [...] as of this encounter Plan of Treatment Not on file documented as of this encounter Visit Diagnoses Not on filedocumented in this encounter
--- OUTSIDE RECORDS SUMMARY | 2024-03-25 09:51 | XMS_ITS | Referral Summary ---
Author Organization [facility] Address [address] [place] [address] Care Team Providers Care Molder Name Role Phone Unavailable Primary Care Provider Unavailabl e Source Comments Patient records contain information from all sites at [facility]. For routine questions regarding patient records, call [phone] during business hours, M-F 8:00 AM - 5:00 PM Central Time. Record requests for emergency care only can be directed to [phone] at any time.[facility] Encounters Date Type Department Care Team Description 01/14/2024 8:41 AM CDT - 01/14/2024 9:39 AM CDT Hospital Encounter Department of Radiation Oncology in [place], [place] [address] [place] [id number] Arcadio Enciso M.D. Primary Malignant Neoplasm Of Prostate (HCC) (Primary Dx) 01/10/2024 10:00 AM CDT Clinical Communication Virtual Review in [address] [phone] Pre-visit Intake from Last 3 Months Allergies No known active allergies Medications Medication Sig Dispensed Refills Start Date End Date Status allopurinoL (ZYLOPRIM) 300 mg tablet Take 300 mg by mouth daily. 03/17/2021 Active rosuvastatin (CRESTOR) 20 mg tablet rosuvastatin 20 mg tablet 03/17/2021 Active tamsulosin (FLOMAX) 0.4 mg 24 hr capsule tamsulosin 0.4 mg capsule TAKE 2 TABLETS BY MOUTH EVERY DAY 03/17/[address] tablet Take 81 mg by mouth daily. 03/17/2021 Active levothyroxine (SYNTHROID, LEVOTHROID) 100 mcg tablet Synthroid 100 mcg tablet 03/17/2021 Active omega-3 fatty acids-fish oil 300-1,000 mg per capsule Take 2 g by mouth daily. Active multivitamin capsule Take 1 capsule by mouth daily. Active calcium carbonate-vitamin D3 1,250 mg (500 mg calcium)-5 mcg (200 Unit) per tablet Take 1 tablet by mouth 2 (two) times a day with meals. Active metoprolol succinate (Toprol XL) 25 mg 24 hr tablet Take 1 tablet by mouth daily. 09/04/2023 Active Active Problems Problem Noted Date Diagnosed [...] alcohol) 2-3 wine or beer per week [facility] [employer] Answer Date Recorded In the past 12 months has [employer], [employer], oil, or water [employer] threatened to shut off services in your [...] How often do you attend chur or denominational services? More than 4 times per year 09/04/2022 Do you belong to any clubs o r organizations such as episcopal groups, unions, fraternal or athletic groups, or [...] heating? Not hard at all 09/04/2022 [facility] - Occupational Stress [...] your living situation today? I have a [facility] place to live 01/09/2024 Education Answer [...] Sign Reading Time Taken Comments Blood Pressure 156/77 01/14/2024 8:51 AM CDT Pulse 56 01/14/2024 8:51 AM CDT Temperature 36.3 ??C (97.3 ??F) 01/14/2024 8:51 AM CD T Respiratory Rate - - Oxygen Saturation 97% 11/22/2021 3:08 PM CDT Inhaled Oxygen Concentration - - Weight 94.4 kg (208 lb 1.8 oz) 01/14/2024 8:51 A M CDT Height - - Body Mass Index - - Plan of Treatment Not on file Medical Devices Implanted Type Area Reading Aide Device Identifier Shelf Expiration Date Model / Serial / Lot Marker Tissue Biomarc Kv 1x5 - [id number] Implanted:Qty : 4 on 11/22/2021 by Adrian Ortiz M.D. at [facility] Imaging Marker [facility] [id number] 03/17/2026 [id number] / / [id number]
--- OUTSIDE RECORDS SUMMARY | 2024-03-25 09:51 | XMS_ITS | Clinical Summary ---
Author Organization [facility] Address [address] [place] [address] Care Team Providers Care Yarrow Gatherer Name Role Phone Unavailable Primary Care Provider Unavailabl e Source Comments Patient records contain information from all sites at [facility]. For routine questions regarding patient records, call [phone] during business hours, M-F 8:00 AM - 5:00 PM Central Time. Record requests for emergency care only can be directed to [phone] at any time.[facility] Allergies No known active allergies Medications Medication [...] Hospital Encounter Department of Radiation Oncology in [place], [place] [address] [place] [phone] Arcadio Enciso M.D. Primary Malignant Neoplasm Of Prostate (HCC) (Primary Dx) 01/10/2024 10:00 AM CDT Clinical Communication Virtual Review in [place], [place] [address] [place] [address] Pre-visit Intake from Last 3 Months Family History Medical History Relation Name Comments Stroke Father Jude Guy CVA cause o f at age 98 Bile duct carcinoma Mother Cathy Guy Hypertension Mother Cathy Guy Hypertension was common in my mother's familly Other cancer Mother Cathy Guy Bile duct ca ncer; terminal at age 62 Relation Name Status Comments Brother Sherman Guy Father Jude Guy Mother Cathy Guy Social History Tobacco Use Types Packs/Day Years Used Date Smoking Tobacco: Never Smokeless Tobacco: Never Alcohol Use Standard Drinks/Week Comments Yes 2 (1 standard drink = 0.6 oz pur e alcohol) 2-3 wine or beer per week [facility] Utilities Answer Date Recorded In the past 12 months has [employer], gas, oil, or water [employer] threatened to shut off services in your [...] How often do you attend chur or alevism services? More than 4 times per year 09/04/2022 Do you belong to any clubs o r organizations such as yarsanism groups, unions, fraternal or athletic groups, or [...] and heating? Not hard at all 09/04/2022 [facility] [place] of Occupat ional Health - Occupational Stress [...] your living situation today? I have a [facility] place to live 01/09/2024 Education Answer [...] Mass Index - - Plan of Treatment Health Maintenance Due Date Last Done Comments Hepatitis C Screening 1945 Thyroid Stimulating Hormone (TSH) test for thyroid function 1945 DTaP,Tdap,and Td Vaccines (1 - Tdap) 02/26/2014 02/25/2014, 01/27/2004 Pneumococcal vaccine (65+ years) (2 of 2 - PPSV23 or PCV20) 10/27/2015 09/01/2015, 05/14/2014 RSV vaccine - (32-36 weeks) or 60+ years (1 - 1-dose 75+ series) 2019 Zoster Vaccines (2 of 2) 05/05/2020 03/10/2020, 05/25 Depression Screening (Annual PHQ-2) 06/25/2023 Fall Risk Screen (Annual) 06/25/2023 COVID-19 Vaccine ( season) 2024 04/26/2023, 04/11/2022, 10/20/2021, Additional history exists Influenza Vaccine (#1) 2024 , 04/19/2022, 04/02/2019, Additional history exists HPV Vaccines Aged Out No longer eligi ble based on patient's age to complete this topic Medical Devices Implanted Type Area Medical Technician Device Identifier Shelf Expiration Date Model / Serial / Lot Marker Tissue Biomarc Kv 1x5 - [id number] Implanted:Qty : 4 on 11/22/2021 by Adrian Ortiz M.D. at [facility] Imaging Marker [facility] [id number] 03/17/2026 [id number] / / [id number]
--- OUTSIDE RECORDS SUMMARY | 2024-03-25 09:51 | XMS_ITS ---
Author Organization [facility] Address [address] [place] [address] Care Team Providers Care Paraprofessional Education Assistant Name Role Phone Unavailable Primary Care Provider Unavailabl e Active Problems Problem Noted Date Diagnosed Date Primary Malignant Neoplasm Of Prostate Cancer Staging:Clinical stage from 08/19/2021:Stage IIC(cT2a, cN0, cM0, PSA: 11.2, Grade Group: 4) - Signed by Branden Fermin M.D., M.S. on 11/24/2021 Current Oncology Plans No current plan information found. Past Plans Hem/Onc Therapy Plan 1 Plan Name Start Date Discontinue Date Treatment Medications Discontinue Reason Plan Provider LEUPROLIDE ACETATE EVERY 12 WEEKS 01/11/2022 12/14/2023 No medications scheduled. Discontinuation of Plans with No Action >1 year-System Maintenance Arcadio Enciso M.D. Hem/Onc Therapy Plan 2 Plan Name Start Date Discontinue Date Treatment Medications Discontinue Reason Plan Provider LEUPROLIDE ACETATE EVERY 16 WEEKS 09/11/2022 09/06/2023 No medications scheduled. Therapy Complete Valerie Benson APRN, C.N.P., D.N.P. Radiation Treatments * Plan Last Treated On Elapsed Days Fractions Treated Prescribed Fraction Dose Prescribed Total Dose [id number] 01/11/2022 36 26 of 26 270 cGy 7,020 cGy Reference Point Last Treated On Elapsed Days Session Dose Total Dose [id number] 01/11/2022 36 270 cGy 7,020 cGy
--- OUTSIDE RECORDS SUMMARY | 2024-03-25 09:51 | XMS_ITS | Encounter Summary ---
Author Organization [facility] Address [address] [place] [address] Care Team Providers Care Salon Customer Experience Specialist Name Role Phone Unavailable Primary Care Provider Unavailabl e Reason for Referral * Outpatient (Routine) - Authorized Specialty Diagnoses / Procedures Referred By Contac t Referred To Contact Radiation Oncology Valerie Benson APRN, C.N.P., D.N.P. [address] [place] [phone] Arcadio Enciso M.D. [address] [place] [phone] Referral ID Status Reason Start Date Expiration Date V isits Requested Visits Authorized [id number] Authorized 01/14/2024 07/15/2025 1 1 Scheduling Instructions After PSA at [facility], obtain results * Outpatient (Routine) - Closed Specialty Diagnoses / Procedures Referred By Contac t Referred To Contact Radiation Oncology Sara Lewis P.A.-C., M.S. [address] [place] [phone] Arcadio Enciso M.D. [address] [place] [phone] Referral ID Status Reason Start Date Expiration Date Visits Re quested Visits Authorized [id number] Closed 01/18/2023 01/17/2026 1 1 Scheduling Instructions PSA and testosterone prior at [facility]; COMPPARE Reason for Visit * Outpatient (Routine) - Closed Specialty Diagnoses / Procedures Referred By Freda chandra Referred To Contact Radiation Oncology Sara Lewis P.A.-C., M.S. [address] [place] [phone] Arcadio Enciso M.D. [address] [place] [phone] Referral ID Status Reason Start Date Expiration Date Visits Re quested Visits Authorized [id number] Closed 01/18/2023 01/17/2026 1 1 Encounter Details Date Type Department Care Team (Latest Contact Info) Description 01/14/2024 8:41 AM CDT - 01/14/2024 9:39 AM CDT Hospital Encounter Department of Radiation Oncology in [place], [place] [address] [place] [phone] Arcadio Enciso M.D. [address] [place] [phone] Primary Malignant Neoplasm Of Prostate (HCC) (Primary Dx) Social History Tobacco Use Types Packs/Day Years Used Date Smoking Tobacco: Never Smokeless Tobacco: Never Alcohol Use Standard Drinks/Week Comments Yes 2 (1 standard drink = 0.6 oz pur e alcohol) 2-3 wine or beer per week [facility] Utilities Answer Date Recorded In the past 12 months has e [employer], gas, oil, or water [employer] threatened to shut off services in your [...] 09/04/2022 How often do you attend chur ch or confucianism services? More than 4 times per year 09/04/2022 Do you belong to any clubs o r organizations such as alevism groups, unions, fraternal or athletic groups, or [...] and heating? Not hard at all 09/04/2022 [facility] [place] of Occupat ional Health - Occupational Stress [...] your living situation today? I have [facility] [employer] [facility] to live 01/09/2024 Education Answer Date [...] PM CDT documented as of this encounter Last Filed Vital Signs Vital Sign Reading Time Taken Comments Blood Pressure 156/77 01/14/2024 8:51 AM CDT Pulse 56 01/14/2024 8:51 AM CDT Temperature 36.3 ??C (97.3 ??F) 01/14/2024 8:51 AM CD T Respiratory Rate - - Oxygen Saturation - - Inhaled Oxygen Concentration - - Weight 94.4 kg (208 lb 1.8 oz) 01/14/2024 8:51 A M CDT Height - - Body Mass Index - - documented in this encounter Medications at Time of Discharge Medication Sig Dispensed Refills Start Date End Date allopurinoL (ZYLOPRIM) 300 mg tablet Take 300 mg by mouth daily. 03/17/[address] tablet Take 81 mg by mouth daily. 03/17/2021 calcium carbonate-vitamin D3 1,250 mg (500 mg calcium)-5 mcg (200 Unit) per tablet Take 1 tablet by mouth 2 (two) times a day with meals. levothyroxine (SYNTHROID, LEVOTHROID) 100 mcg tablet Synthroid 100 mcg tablet 03/17/2021 metoprolol succinate (Toprol XL) 25 mg 24 hr tablet Take 1 tablet by mouth daily. 09/04/2023 multivitamin capsule Take 1 capsule by mouth daily. omega-3 fatty acids-fish oil 300-1,000 mg per capsule Take 2 g by mouth daily. rosuvastatin (CRESTOR) 20 mg tablet rosuvastatin 20 mg tablet 03/17/2021 tamsulosin (FLOMAX) 0.4 mg 24 hr capsule tamsulosin 0.4 mg capsule TAKE 2 TABLETS BY MOUTH EVERY DAY 03/17/2021 documented as of this encounter Progress Notes * Valerie Benson APRN, C.N.P., D.N.P. - 01/14/2024 9:00 AM CDT SUBJECTIVE DIAGNOSIS 1. Primary Malignant Neoplasm Of Prostate (HCC) SUPERVISED BY: Arcadio Enciso M.D. ([phone]) HISTORY OF PRESENT ILLNESS Mr. Declan Guy is a 78 y.o. 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 He completed radiation therapy on the COMPPARE: A Prospective Comparative Study of Outcomes with Proton and Photon Radiation in Prostate Cancer?? trial (IRB# [id number])on January 11, 2022. He returns for 2 year follow up. His oncologic history is as follows: Oncology History Primary Malignant Neoplasm Of Prostate (HCC) 02/2021 Other 03/16/2021: PSA 5.57 ng/mL 04/08/2021: PSA 5.41 ng/mL 09/26/2021: PSA 11.2 ng/mL 03/17/2021 Other Annual physical exam with Dr. Adrian Haskins. Digital rectal examination demonstrated a mostly smooth, nonenlarged prostate with a right-sided nodule that measured approximately 1 cm. Referral to Urology. 04/13/2021 Other Urology consultation with Dr. Medardo Burgess at [facility]. Digital rectal exam demonstrated a25 cc prostate with 1 cm firmness at the prostatic apex just left of midline. No tenderness or bogginess. The patient was taking tamsulosin 0.4 mg daily. 04/19/2021 Critical Imaging MRI of the prostate demonstrated a prostate volume of 39 cc. There was a 1.4 x 1.0 x 0.9 cm lesion in the right peripheral zone at the apex at the 6 to 7 o'clock position. PI-RADS 4. No extracapsularextension or seminal vesicle invasion. No periprostatic or pelvic sidewall lymph nodes. No other bony or soft tissue abnormalities identified. 08/19/2021 Biopsy/Pathology Prostate biopsy was performed by Dr. Luis F Ponce. Pathology of right apex of the prostate demonstrated adenocarcinoma, [place] 4+4=8, discontinuously involving 75% of the length of 1 core, perineuralinvasion not seen. Pathology of lesion 1 demonstrated adenocarcinoma, Deborah 4+4=8, involving 50% of the length of the core, perineural invasion not seen. Pathology of the left base, left mid, and le ft apex of the prostate demonstrated high-grade prostatic intraepithelial neoplasia (PIN), focal. Pathology of the right base and right mid of the prostate demonstrated benign prostatic tissue. 08/19/2021 Clinical Stage Staging form: Prostate, AJCC 8th Edition - Clinical stage from 08/19/2021: Stage IIC (cT2a, cN0, cM0, PSA: 11.2, Grade Group: 4) Histopathologic type: Adenocarcinoma, NOS Stage prefix: Initial diagnosis Prostate specific antigen (PSA) range: 10 to 19 Deborah primary pattern: 4 Deborah secondary pattern: 4 Deborah score: 8 Histologic grading system: 5 grade system 09/20/[address] scan of the abdomen and pelvis demonstrated no evidence of metastasis. Nuclear medicine whole-body bone scan demonstrated no osseous metastasis. 09/26/2021 - 03/2023 Biological/Targeted/Hormone Therapy 09/26/2021: Androgen deprivation therapy initiated with leuprolide 22.5 mg (3 month) injection and bicalutamide 50 mg daily for 3 weeks. 01/02/2022: Eligard 22.5 mg (3 month) injection at [facility]. 03/28/2022: Eligard 22.5 mg injection 06/29/2022: Eligard 22.5 mg injection 09/22/2022: Eligard 22.5 mg injection 12/19/2022: Eligard 30 mg injection 10/06/2021 Critical Imaging Bone density scan at [facility] revealed osteopenia with a T-score of- 1.8 at L1-L4,-2.2 atthe left femoral neck,-1.0 the left hip,-2.0 the right femoral neck,-1.0 the right hip, and femoralneck mean of -2.1. 12/06/2021 - 01/11/2022 Radiation Therapy Total of 7020 cGy in 26 fractions to the prostate, seminal vesicles, and pelvic lymph nodes Radiation Therapy Treatment Details (12/06/2021 - 01/11/2022) Site: Prostate Technique: IMRT Goal: Curative Planned Treatment Start Date: 12/06/2021 03/16/2022 Other 03/16/2022: PSA <0.06 ng/mL. Testosterone total 3 ng/dL. 04/28/2022: PSA <0.06 ng/mL 09/07/2022: PSA <0.06 ng/mL 12/28/2022 Critical Imaging Bone density scan demonstrated osteopenia. Lumbar spine T-score -2.1, left neck T-score -2.2, rightneck T-score -2.3. 01/15/2023 Other Urology consultation and evaluation for hematuria. Work-up was negative other than radiation changes in the bladder. No treatment was recommended. Repeat urinalysis in 1 year with his primary care team. 01/17/2023 Other 01/17/2023: PSA <0.06 ng/mL 07/11/2023: PSA <0.06 ng/mL. Testosterone total <3 ng/dL 01/10/2024: PSA 0.18 ng/mL. Testosterone total 431 ng/dL INTERVAL HISTORY The patient was seen and examined today with Dr. Enciso. The patient reports doing well overall. He reports stable urination. He does experience nocturia x3-5. He also experiences postvoid dribbling. He is currently on 0.8 mg Flomax daily. He otherwise denies urinary frequency, urgency, hematuria, dysuria, or strain. He reports daily soft bowel movements without pain. He experiences occasional blood with bowel movements that he associates with hemorrhoids. He reports this happens once every 2-3 weeks. He also experiences pruritus with hemorrhoids. Hecontinues experiencing anal leakage. This was present prior to radiation treatment, slightly worsened following radiation treatment. He continues wearing a pad for this. He performs Kegel exercises only on occasion. He denies new or persistent bone pain. His ECOG performance status is 0. PATIENT COMPLETED QUESTIONNAIRES: AUA 9 (1, 1, 2, 1, 0, 0, 4) IIEF-15 N/A REVIEW OF SYSTEMS Review of systems was negative except as documented above. PATIENT REPORTED SYMPTOM SCREEN FATIGUE (Scale: 0 = no fatigue; 10 = worst fatigue you can imagine): 3 PAIN (Scale: 0 = no pain; 10 = worst pain you can imagine): 2 OVERALL QUALITY OF LIFE (Scale: 0 = as bad as can be; 10 = as good as can be): 9 OBJECTIVE BP 156/77 (BP Location: Right arm, Patient Position: Sitting, Cuff Size: Regular) Pulse (!) 56 Temp 36.3 ??C (Temporal) Wt 94.4 kg PHYSICAL EXAM General: Alert and oriented in no apparent distress. ASSESSMENT / PLAN #1 Stage IIC (cT2a, cN0, cM0, PSA: 11.2, Grade Group: 4) adenocarcinoma the prostate #2 Androgen deprivation therapy initiated on September 27, 2021 with 22.5 mg injection of leuprolide; final leuprolide 30 mg injection on December 19, 2022 for a total of 18 months #3 Osteopenia demonstrated on bone density scan from October 06, 2021 #4 Long-standing erectile dysfunction #5 Marker/hydrogel spacer placement on November 22, 2021 #6 External beam radiotherapy to the prostate, seminal vesicles, and pelvic lymph nodes initiated on December 06, 2021; completed on January 11, 2022; treated on COMPPARE: A Prospective Comparative Study ofOutcomes with Proton and Photon Radiation in Prostate Cancer?? trial (IRB# [id number]) It was a pleasure to meet with Declan today. He is doing well overall now 2 years out from radiation treatment. His urination is stable with only nocturia as a bothering symptom. His bowel movements and anal leakage are stable as well. I discussed performing Kegel exercises on a more routine basis to help ease those symptoms. We reviewed his most recent PSA results of 0.18 ng/mL and testosterone total result of 431 ng/dL and discussed what this means in relation to his prostate cancer. We will have him complete a PSA in 6 months at [facility]. He will be contacted with theseresults. We will schedule a return visit here in 1 year with a PSA drawn a few days prior at [facility], on the 3 year anniversary of his radiation treatment and in accordance with the COMPPARE trial. Patient seen in collaboration with Dr. Enciso, please review his attestation for additional information. I discussed the importance of contacting our team if blood persists over multiple days with urination and/or bowel movements or if he is noticing any clots with urination and/or bowel movements. I also discussed the importance of informing us if persistent bone pain is present over1-2 months without relief. I answered all of his questions to the best of my ability. He will contact us with questions or concerns. He verbally expressed his understanding of the plan. EDUCATION Ready to learn, no apparent learning barriers were identified; learning preferences include listening. Explained diagnosis and treatment plan; patient expressed understanding of the content. I personally spent 20 minutes in care of the patient today. Time includes both non face to face andface to face patient care. Signed by: Valerie Benson APRN, C.N.P., D.N.P. 01/14/2024 9:09 AM CDT [facility] [address] [place] [address] Associated attestation - Arcadio Enciso M.D. - 01/14/2024 9:38 AM CDT I saw and evaluated the patient and participated in the wilkerson portions of the service. I reviewed thedocumentation of Valerie Benson C.N.P. and agree with the findings and plan. Mr. Declan Guy is a 78 y.o. 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 He completed radiation therapy on the COMPPARE: A Prospective Comparative Study of Outcomes with Proton and Photon Radiation in Prostate Cancer?? trial (IRB# [id number])on January 11, 2022. He returns for 2 year follow up. Currently feeling well. He does have occasional fecal incontinence that is chronic. He also has occasional hemorrhoidal bleeding. He has not doing Kegel exercises faithfully. His urinary function is stable and he remains on tamsulosin 0.8 mg daily. Continues to take calcium and vitamin-D because hehas a history of osteopenia. He has not exercising regularly. He also reports some erectile dysfunction that was present prior to radiation. He took Viagra in the past but had headaches and hypotension. He does have dry orgasm. ECOG performance status is 0. The patient appears well on exam. He is here with his Ally. 01/10/2024: PSA 0.18 ng/mL. Testosterone total 431 ng/dL. ASSESSMENT / PLAN #1 Stage IIC (cT2a, cN0, cM0, PSA: 11.2, Grade Group: 4) adenocarcinoma the prostate #2 Androgen deprivation therapy initiated on September 27, 2021 with 22.5 mg injection of leuprolide; final leuprolide 30 mg injection on December 19, 2022 for a total of 18 months #3 Osteopenia demonstrated on bone density scan from October 06, 2021 #4 Long-standing erectile dysfunction #5 Marker/hydrogel spacer placement on November 22, 2021 #6 External beam radiotherapy to the prostate, seminal vesicles, and pelvic lymph nodes initiated on December 06, 2021; completed on January 11, 2022; treated on COMPPARE: A Prospective Comparative Study ofOutcomes with Proton and Photon Radiation in Prostate Cancer?? trial (IRB# [id number]) The patient is doing well now 2 years out from treatment completion. His PSA remains low and his testosterone has normalized. I encouraged him to begin walking or doing light strength training for exercise with a goal of 30 minutes 5 days a week. I also encouraged him to begin Kegel exercises for 5minutes twice a day. He agreed to attempt each of these. We reviewed options for erectile dysfunction treatment. He is not interested in a referral to [facility]. We will repeat a PSA in 6 months at [facility] and see him again in 1 year with a pre-visit PSA drawn at the same place. He and his understand that they can contact us in the interim with questions or concerns regarding his prostate cancer. They verbalized satisfaction with this plan. I have spent 10 minutes caring for this patient including [id number] and gqh-yulv-[id number]-face time. Signed by: Arcadio Enciso M.D. 01/14/24 9:38 AM CDT [facility] [place] documented in this encounter Miscellaneous Notes * Addendum Note - Tara Briscoe C.N.ABg - 01/14/2024 9:00 AM CDTEncounter addended by: Tara Briscoe C.N.A. on: 01/14/2024 10:58 AM Actions taken: Letter saved documented in this encounter Plan of Treatment Scheduled Orders Name Type Priority Associated Diagnoses Orde r Schedule PSA (Prostate-Specific Antigen), Diagnostic Lab Routine Primary Malignant Neoplasm Of Prostate (HCC) Expected: 07/16/2024, Expires: 04/15/2025 PSA (Prostate-Specific Antigen), Diagnostic Lab Routine Primary Malignant Neoplasm Of Prostate (HCC) Expected: 01/06/2025, Expires: 04/15/2025 Scheduled Referrals Name Type Priority Associated Diagnoses Order Schedule Radiation Oncology office visit (clinic) Outpatient Referral Routine Once for 1 Occurrences starting 01/14/2024 until 01/14/2024 Radiation Oncology office visit (clinic) Outpatient Referral Routine Expected: 01/13/2025, Expires: 04/15/2025 documented as of this encounter Visit Diagnoses Diagnosis Primary Malignant Neoplasm Of Prostate (HCC)- Primary documented in this encounter
--- OUTSIDE RECORDS SUMMARY | 2024-03-25 09:51 | XMS_ITS ---
Author Organization [facility] Address [address] [place] [address] Care Team Providers Care Addressing Machine Operator Name Role Phone Unavailable Unavailable Unavailable Surgery Details Not on file Complications Check Surgery Details section. Procedure Estimated Blood Loss Check Surgery Details section. Procedure Findings Check Surgery Details section. Procedure Specimens Taken Check Surgery Details section.
--- NOTE | 2024-03-25 10:00 | CRLHL7_ITS ---
For Patients: As a result of the Century Cures Act, medical imaging exams and procedure reports are released immediately into your electronic medical record. You may view this report before your referring provider. If you have questions, please contact your health care provider. INDICATION: Lung nodule, six-month follow-up TECHNIQUE: CT chest without contrast. COMPARISON: 08/18/[address] FINDINGS: Lungs and pleura: Subpleural nodule in the lateral left upper lobe image 23 series 3 measures 8 mm, possibly slightly larger than on the prior study. There is a 4 mm nodule in the left lower lobe on image 67 that measured 6 mm previously. This is better seen due to less atelectasis in the area. 3.5 mm nodule lateral right lower lobe image 59 was mainly obscured by atelectasis as well. 4.5 mm perifissural nodule on the right image 47. Mild bronchiectasis in the lung bases. Chronic atelectasis in the left lower lobe due to large hiatal hernia. Heart and vasculature: Heart size is normal. Thoracic aorta and pulmonary artery are normal in caliber. Lymph nodes/mediastinum: No mediastinal, hilar, or axillary adenopathy. Large hiatal hernia. Chest wall: No masses. Upper abdomen: Cholecystectomy. Left renal cyst. Bones: Unremarkable for age. IMPRESSION: 1. Left upper lobe pulmonary nodule measures 8 mm, possibly instrument real growth versus different measurement air. Follow up in 6 months versus PET-CT recommended. 2. Several smaller stable nodules are better seen than on the previous study. Please note that all CT scans at this facility use dose modulation, iterative reconstruction, and/or weight-based dosing when appropriate to reduce radiation dose to as low as reasonably achievable. Dictated by Sam Bradley MD @ 03/26/2024 8:50:57 AM (Electronically Signed)
== END 2024-03-25 09:48 | disposition home or self-care (01) ==
PROVIDERS: PCP Family Medicine; Visit Provider Family Medicine
DX: R91.1 Solitary pulmonary nodule (principal); R91.8 Other nonspecific abnormal finding of lung field
CPT/HCPCS: 71250

== ENCOUNTER 2024-03-27 07:35 | Outpatient (CLI) | payer MEDICARE, OTHER, SELFPAY ==
--- OUTSIDE RECORDS SUMMARY | 2024-03-28 08:40 | XMS_ITS | Clinical Summary ---
Author Organization [facility] Address [address] [place] [address] Care Team Providers Care Watch Assembler Name Role Phone Unavailable Primary Care Provider Unavailabl e Source Comments Patient records contain information from all sites at [facility]. For routine questions regarding patient records, call [phone] during business hours, M-F 8:00 AM - 5:00 PM Central Time. Record requests for emergency care only can be directed to [phone] at any time.[facility] Allergies No known active allergies Medications [...] Hospital Encounter Department of Radiation Oncology in [place], [place] [address] [place] [id number] Arcadio Enciso M.D. Primary Malignant Neoplasm Of Prostate (HCC) (Primary Dx) 01/10/2024 10:00 AM CDT Clinical Communication Virtual Review in [place], [place] [address] [place] [address] Pre-visit Intake from Last 3 Months Family [...] alcohol) 2-3 wine or beer per week [facility] Utilities Answer Date Recorded In the past 12 months has [employer], gas, oil, or water [employer] threatened to shut off services in your [...] How often do you attend chur or presybeterian services? More than 4 times per year 09/04/2022 Do you belong to any clubs o r organizations such as roman catholic groups, unions, fraternal or athletic groups, or [...] and heating? Not hard at all 09/04/2022 [facility] of Occupat ional Health - Occupational Stress [...] your living situation today? I have a [facility] place to live 01/09/2024 Education Answer Date [...] this topic Medical Devices Implanted Type Area Manager Media Device Identifier Shelf Expiration Date Model / Serial / Lot Marker Tissue [employer] Kv 1x5 - [id number] Implanted:Qty : 4 on 11/22/2021 by Adrian Ortiz M.D. at [facility] Imaging Marker [facility] [id number] 03/17/2026 [id number] / / [id number]
--- OUTSIDE RECORDS SUMMARY | 2024-03-28 08:41 | XMS_ITS ---
Author Organization [facility] Address [address] [place] [address] Care Team Providers Care Firmware Architect Name Role Phone Unavailable Primary Care Provider [...] Treated Prescribed Fraction Dose Prescribed Total Dose [id number] 01/11/2022 36 26 of 26 270 cGy 7,020 cGy Reference Point Last Treated On Elapsed Days Session Dose Total Dose [id number] 01/11/2022 36 270 cGy 7,020 cGy
--- OUTSIDE RECORDS SUMMARY | 2024-03-28 08:41 | XMS_ITS ---
Author Organization [facility] Address [address] [place] [address] Care Team Providers Care Directional Bore Operator Name Role Phone Unavailable Unavailable Unavailable Surgery Details Not on file Complications Check Surgery Details section. Procedure Estimated Blood Loss Check Surgery Details section. Procedure Findings Check Surgery Details section. Procedure Specimens Taken Check Surgery Details section.
--- OUTSIDE RECORDS SUMMARY | 2024-03-28 08:41 | XMS_ITS | Referral Summary ---
Author Organization [facility] Address [address] [place] [address] Care Team Providers Care Resident Services Director Name Role Phone Unavailable Primary Care Provider Unavailabl e Source Comments Patient records contain information from all sites at [facility]. For routine questions regarding patient records, call [phone] during business hours, M-F 8:00 AM - 5:00 PM Central Time. Record requests for emergency care only can be directed to [phone] at any time.[facility] Encounters Date Type Department Care Team Description 01/14/2024 8:41 AM CDT - 01/14/2024 9:39 AM CDT Hospital Encounter Department of Radiation Oncology in [place], [place] [address] [place] [phone] Arcadio Enciso M.D. Primary Malignant Neoplasm Of Prostate (HCC) (Primary Dx) 01/10/2024 10:00 AM CDT Clinical Communication Virtual Review in [address] [address] Pre-visit Intake from Last 3 Months Allergies [...] alcohol) 2-3 wine or beer per week [facility] Marketshotities Answer Date Recorded In the past 12 months has [employer], [employer], oil, or water [employer] threatened to shut off services in your [...] How often do you attend chur or scientology services? More than 4 times per year [...] and heating? Not hard at all 09/04/2022 [facility] - Occupational [...] your living situation today? I have a [facility] place to live 01/09/2024 Education Answer [...] on file Medical Devices Implanted Type Area Account Underwriter Device Identifier Shelf Expiration Date Model / Serial / Lot Marker Tissue Biomarc Kv 1x5 - [id number] Implanted:Qty : 4 on 11/22/2021 by Adrian Ortiz M.D. at [facility] Marker [facility] [id number] 03/17/2026 [id number] / / [id number]
--- OUTSIDE RECORDS SUMMARY | 2024-03-28 08:41 | XMS_ITS | Encounter Summary ---
Author Organization [facility] Address [address] [place] [address] Care Team Providers Care Dye Mixer Name Role Phone Unavailable Primary Care Provider Unavailabl e Reason for Visit * Reason Onset Date Comments Pre-visit Intake 01/10/2024 Encounter Details Date Type Department Care Team (Latest Contact Info) Description 01/10/2024 10:00 AM CDT Clinical Communication Virtual Review in [address] [address] Pre-visit Intake Social History Tobacco Use Types Packs/Day Years Used Date Smoking Tobacco: Never Smokeless Tobacco: Never Alcohol Use Standard Drinks/Week Comments Yes 2 (1 standard drink = 0.6 oz pur e alcohol) 2-3 wine or beer per week [facility] Utilities Answer Date Recorded In the past [address] [facility] [employer], gas, oil, or water [employer] threatened to shut off services in your [...] How often do you attend chur or worship services? More than 4 times per year 09/04/2022 Do you belong to any clubs o r organizations such as christianity groups, unions, fraternal or athletic groups, or [...] and heating? Not hard at all 09/04/2022 [facility] - Occupational Stress Questionnaire Answer Date [...] your living situation today? I have a [facility] place to live 01/09/2024 Education Answer [...]
--- OUTSIDE RECORDS SUMMARY | 2024-03-28 08:41 | XMS_ITS | Encounter Summary ---
Author Organization [facility] Address [address] [place] [address] Care Team Providers Care Ash Conveyor Operator Name Role Phone Unavailable Primary Care Provider Unavailabl e Reason for Referral * Outpatient (Routine) - Authorized Specialty Diagnoses / Procedures Referred By Contac t Referred To Contact Radiation Oncology Valerie Benson APRN, C.N.P., D.N.P. [address] [place] [phone] Arcadio Enciso M.D. [address] [place] [phone] Referral ID Status Reason Start Date Expiration Date V isits Requested Visits Authorized [id number] Authorized 01/14/2024 07/15/2025 1 1 Scheduling Instructions After PSA at [facility], obtain results * Outpatient (Routine) - Closed Specialty Diagnoses / Procedures Referred By Contac t Referred To Contact Radiation Oncology Sara Lewis P.A.-C., M.S. [address] [place] [phone] Arcadio Enciso M.D. [address] [place] [phone] Referral ID Status Reason Start Date Expiration Date Visits Re quested Visits Authorized [id number] Closed 01/18/2023 01/17/2026 1 1 Scheduling Instructions PSA and testosterone prior at [facility]; COMPPARE Reason for Visit * Outpatient (Routine) - Closed Specialty Diagnoses / Procedures Referred By Freda chandra Referred To Contact Radiation Oncology Sara Lewis P.A.-C., M.S. [address] [place] [phone] Arcadio Enciso M.D. [address] [place] [phone] Referral ID Status Reason Start Date Expiration Date Visits Re quested Visits Authorized [id number] Closed 01/18/2023 01/17/2026 1 1 Encounter Details Date Type Department Care Team (Latest Contact Info) Description 01/14/2024 8:41 AM CDT - 01/14/2024 9:39 AM CDT Hospital Encounter Department of Radiation Oncology in [place], [place] [address] [place] [phone] Arcadio Enciso M.D. [address] [place] [phone] Primary Malignant Neoplasm Of Prostate (HCC) (Primary Dx) Social History Tobacco Use Types Packs/Day Years Used Date Smoking Tobacco: Never Smokeless Tobacco: Never Alcohol Use Standard Drinks/Week Comments Yes 2 (1 standard drink = 0.6 oz pur e alcohol) 2-3 wine or beer per week [facility] Utilities Answer Date Recorded In the past 12 months has e [employer], gas, oil, or water [employer] threatened to shut off services in your [...] often do you attend chur ch or taoist services? More than 4 times per year 09/04/2022 Do you belong to any clubs o r organizations such as christian groups, unions, fraternal or athletic groups, or [...] and heating? Not hard at all 09/04/2022 [facility] Occup[facility] ional Health - Occupational Stress [...] Prostate (HCC) SUPERVISED BY: Arcadio Enciso M.D. ([phone]) HISTORY OF PRESENT ILLNESS Mr. Declan Guy is a 78 y.o. 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 He completed radiation therapy on the COMPPARE: A Prospective Comparative Study of Outcomes with Proton and Photon Radiation in Prostate Cancer?? trial (IRB# [id number])on January 11, 2022. He returns for 2 [...] Urology consultation with Dr. Medardo Burgess at [facility]. Digital rectal exam demonstrated a25 cc prostate [...] right apex of the prostate demonstrated adenocarcinoma, [place] 4+4=8, discontinuously involving 75% of the length [...] Eligard 22.5 mg (3 month) injection at [facility]. 03/28/2022: Eligard 22.5 mg injection 06/29/2022: Eligard 22.5 mg injection 09/22/2022: Eligard 22.5 mg injection 12/19/2022: Eligard 30 mg injection 10/06/2021 Critical Imaging Bone density scan at [facility] revealed osteopenia with a T-score of- 1.8 [...] Photon Radiation in Prostate Cancer?? trial (IRB# [id number]) It was a pleasure to meet with [...] complete a PSA in 6 months at [facility]. He will be contacted with theseresults. We will schedule a return visit here in 1 year with a PSA drawn a few days prior at [facility], on the 3 year anniversary of his [...] D.N.P. 01/14/2024 9:09 AM CDT [facility] [address] [place] [address] Associated attestation - Arcadio Enciso M.D. - [...] Photon Radiation in Prostate Cancer?? trial (IRB# [id number])on January 11, 2022. He returns for 2 [...] Photon Radiation in Prostate Cancer?? trial (IRB# [id number]) The patient is doing well now 2 [...] repeat a PSA in 6 months at [facility] and see him again in 1 year with a pre-visit PSA drawn at the same place. He and his understand that they can contact us in the interim with questions or concerns regarding his prostate cancer. They verbalized satisfaction with this plan. I have spent 10 minutes caring for this patient including [id number]-db-ebzu and frj-vdgs-lb-face time. Signed by: Arcadio Enciso M.D. 01/14/24 9:38 AM CDT [facility] [place] documented in this encounter Miscellaneous Notes * [...]
--- OUTSIDE RECORDS SUMMARY | 2024-03-28 08:41 | XMS_ITS | Clinical Summary ---
Author Organization [facility] Address [place], [place] [address] Care Team Providers Care Acute Specialist Name Role Phone Adrian Haskins MD Primary Care Provider [phone] Allergies No known active allergies Medications Medication [...] g by mouth once daily. Active multivit 32-xfpt-airwli 6-dha 29 mg iron-1 mg -300 mg [...] Influenza for age 65+ 02/24/2024 Care Teams Acute Specialist Relationship Specialty Start Date End Date Adrian Haskins MD [address] [facility] [place] [phone] PCP - General Family Practice 04/13/21
== END 2024-03-27 07:36 | disposition home or self-care (01) ==
LOC: NFLDREF 03-28 08:39
PROVIDERS: PCP Family Medicine; Referring Provider Family Medicine; Visit Provider Family Medicine
DX: E78.5 Hyperlipidemia, unspecified (principal); E03.9 Hypothyroidism, unspecified; C61 Malignant neoplasm of prostate; Z12.5 Encounter for screening for malignant neoplasm of prostate
CPT/HCPCS: 80053; 80061; 84443; G0103

== ENCOUNTER 2024-07-01 09:00 | Outpatient (RCR) | payer MEDICARE, OTHER, SELFPAY ==
[2024-01-10 10:31] LABS: PSA Diagnostic* 0.18 ng/mL (0.10-4.00)
[2024-01-11 19:02] LABS: Testosterone, Adult Male 431 ng/dL (300-720)
--- OUTSIDE RECORDS SUMMARY | 2024-06-27 07:29 | XMS_ITS | Continuity of Care Document ---
Author Name NwHIN User [email or web address]-a llowed Address Unknown Organization Unknown Address Unknown Procedures FILTER APPLIED:Only known Procedures with Onset Date within the last 5 years Procedure Date Procedure Provider Additiona l Information Status ASSAY OF FERRITIN (36908) Completed METABOLIC PANEL TOTAL CA (62302) Completed COMPLETE CBC AUTOMATED (97309) Completed HEPATIC FUNCTION PANEL (69052) Completed RENAL FUNCTION PANEL (47968) Completed ASSAY OF LIPASE (66730) Completed C DIFF AMPLIFIED PROBE (96728) Completed CULTURE SCREEN ONLY (31423) Completed PROTHROMBIN TIME (04730) Completed ASSAY OF GGT (28774) Com pleted ASSAY OF CALCIUM (65250) Completed EMERGENCY DEPT VISIT HI MDM (73092) Completed PROCALCITONIN (PCT) (69852) Completed COMPREHEN METABOLIC PANEL (43094) Completed ASSAY OF MAGNESIUM (55649) Completed HEMOGLOBIN GLYCOSYLATED A1C (44819) Completed BLOOD GASES ANY COMBINATION (23812) Completed LIPID PANEL (90053) Comp leted CT ANGIOGRAPHY CHEST (85232) Completed URINALYSIS AUTO W/O SCOPE (45206) Completed GAIT TRAINING THERAPY (20576) Completed TTE W/DOPPLER COMPLETE (97476) Completed URINE CULTURE/COLONY COUNT (72548) Completed BLOOD CULTURE FOR BACTERIA (29520) Completed C-REACTIVE PROTEIN (60434) Completed PT EVAL LOW COMPLEX 20 MIN (17455) Completed CT ABD PELV W/CONTRAST (55871) Completed ASSAY OF NATRIURETIC PEPTIDE (70419) Completed AIRWAY INHALATION TREATMENT (69079) Completed EMERGENCY DEPT VISIT MOD MDM (65836) Completed RESP VIRUS 3-5 TARGETS (96226) Completed FIBRIN DEGRADATION QUANT (34362) Completed COMPLETE CBC W/AUTO DIFF WBC (13304) Completed ASSAY OF LACTIC ACID (16563) Completed ASSAY OF TROPONIN QUANT (96910) Completed ELECTROCARDIOGRAM TRACING (40095) Completed MEASURE BLOOD OXYGEN LEVEL (23725) Completed ROUTINE VENIPUNCTURE (20304) Completed X-RAY EXAM CHEST 1 VIEW (95151) Completed METABOLIC PANEL TOTAL CA (05665) Completed COMPREHEN METABOLIC PANEL (37527) Completed ASSAY THYROID STIM HORMONE (20309) Completed LIPID PANEL (96947) Comp leted ASSAY OF PSA TOTAL (83744) Completed ROUTINE VENIPUNCTURE (90319) Completed CHEMO ANTI-NEOPL SQ/IM (28517) Completed Encounters FILTER APPLIED:Only known Encounters with Admission Date within the last 5 years Encounter Location Admission Discharge Billing Code Patient Service Technician Pst Jaimee barnes Outpatient Marissa Yarbrough Outpatient Adrian Haskins Outpatient Marissa seo Inpatient [id number] Mirna John Outpatient Adrian Haskins Outpatient Adrian Haskins
--- OUTSIDE RECORDS SUMMARY | 2024-06-27 07:29 | XMS_ITS | Data Portability ---
Author Organization [place] [facility], [facility] Address [address] [place] [address] Care Team Providers Care Hand Collator Name Role Phone ARIELLE ADRIAN Primary Care Provider Assessment Encounter Date Assessment Date Assessment LastModified by Organization Details LastModified Time 09/02/2021 09/02/2021 Of note a total of 40 minutes was spent: preparing to see the patient by reviewing records, images, and laboratory data; obtaining/revie wing separately obtained history; performing physical examination, counseling and educating patient/family/ caregiver; ordering appropriate medications, labs, imaging or procedures; documenting the clinical encounter; and coordination of care. [email or web address] Not available 09/02/2021 10:22:10 Plan of Treatment Reminders Order Date Submit Date Provider Last Modified By Organization Details Last Modified Time Details Appointments None recorded. Lab None recorded. Referral radiation oncologist referral 2021 022 [place] [facility] - [facility], [address], [place], [address], 09:50:51 Procedures None recorded. Surgeries None recorded. Imaging [place], bone scan, whole body [address] [facility], [address] [place], [address], 08:44:22 CT, abdomen + pelvis, w/ contrast [address] [facility], [address] [place], [address], 2 08:44:22 Medication Orders ceftriaxon e 1 gram solution for injection 2021 022 [email or web address] Not available 13:44:49 Patient TargetsNo targets recorded. Patient InstructionsNo instructions recorded. Reason for Referral Referring Physician: Medardo Burgess, Urology, Encounter Date: 09/02/2021 Results Created Date Observation Date Name Description Value Unit Range Abnormal Flag Note LastModifiedBy Organization Detail LastModifiedTime 09/15/19 22 04/19/2021 MRI, prost ate, w/wo contr ast No observ ation record ed. [email or web address] Not Available 2021 12:39:12 09/22/1909/20/2021 [place], bone scan, whole body No observ ation record ed. [address] [facility] [address] [facility], [place], [address], 10/10/2021 16:45:47 09/22/19 22 09/20/2021 CT, abdom en + pelvi s, w/ contr ast No observ ation record ed. [address] [facility] [address] [facility], [place], [address], 10/10/2021 16:45:47 Result Notes None recorded. Procedures Surgical History Date Name Laterality Status Provider Name and Address Organization Details Recorded Time 2 Prostate Biopsy Procedure completed Luis F Ponce MD [address] [place] [address],[address], [phone], [facility] 08/19/2021 14:17:38 2 URONAV completed Luis F Ponce MD [address] [place] [address],[address], [phone], [facility] 08/19/2021 11:33:00 Imaging Results Imaging Date Name Status LastModified by Organiz ation Details LastModified Time 04/19/2021 MRI, prostate, w/wo contrast completed [email or web address] Information not available 09/14/2021 12:39:12 09/20/2021 [place], bone scan, whole body completed [address] [facility] [address], [place], [address], 10/10/2021 16:45:47 09/20/2021 CT, abdomen + pelvis, w/ contrast completed [address] [facility] [address], [place], [address], 10/10/2021 16:45:47 Procedure Notes None recorded. Medical Equipment None Reported. Allergies No known drug allergies Medications Name Sig Start Date Stop Date Status Note LastModified by Organization Details LastModified Time sildenafil 50 mg tablet TAKE ONE TO TWO TABLETS BY MOUTH EVERY DAY NEEDED FOR ONE HOUR PRIOR TO PLANNED SEXUAL ACTIVITY active Not Available Not Available No t Available Synthroid 100 mcg tablet active Not Available Not Available Not Available atenolol 25 mg tablet active Not Available Not Available No t Available clobetasol 0.05 % topical cream active Not Available Not Available Not Available potassium chloride ER 10 mEq tablet,exte nded release TAKE 1 TABLET BY MOUTH EVERY DAY active Not Available Not Available No t Available chlorthalid one 25 mg tablet 08/22 completed Not Available Not Available Not Available aspirin 81 mg tablet,loyd yed release active Not Available Not Available Not Available ceftriaxone 1 gram solution for injection Take 1 g by injection route. 2021 active Not Available Not Available Not Avai lable tamsulosin 0.4 mg capsule TAKE 2 TABLETS BY MOUTH EVERY DAY active Not Available Not Available No t Available cephalexin 500 mg capsule TAKE 1 CAPSULE BY MOUTH 4 TIMES A DAY active Not Available Not Available No t Available triamterene 37.5 mg-hydrochl orothiazide 25 mg tablet active Not Available Not Available Not Available allopurinol 300 mg tablet active Not Available Not Available Not Available levofloxaci n 500 mg tablet TAKE 1 TAB ONCE DAILY FOR 3 DAYS. 1 TAB BEFORE BIOPSY, 1 TAB DAY OF BIOPSY, 1 TAB DAY AFTER BIOPSY active Not Available Not Available No t Available rosuvastati n 20 mg tablet active Not Available Not Available Not Available Vitals Date Recorded Body height Body mass index (BMI) Body weight Provider Name and Address Organization Details Last Updated DateTime 09/02/2021 170.18 cm 31.3 kg/m2 88209.47 g Jayde Randhawa [facility] 09/02/2021 09:25:11 Social History Question Answer Notes LastModified by Organizat ion Details LastModified Time Tobacco Smoking Status Never Smoker FAB[facility]O [facility] 09/02/2021 09:21:27 What Is Your Level Of Alcohol Consumption? Occasional Information not available 09/02/2021 What Is Your Level Of Caffeine Consumption? Moderate Information not available 09/02/2021 What Was The Date Of Your Most Recent Tobacco Screening? 09/02/2021 Information not available 09/02/2021 What Is Your Relationship Status? Information not available 09/02/2021 Do You Use Any Illicit Or Recreational Drugs? No Information not available 09/02/2021 Do You Or Have You Ever Used Any Other Forms Of Tobacco Or Nicotine? No Information not available 09/02/2021 Sex: Unknown Functional Status None recorded. Mental Status None recorded. Family History Relationship Description Onset Age of this Age Resolved Age Notes LastModified by Organization Details LastModified Time Mother Family history of malignant neoplasm Bile duct Not available 09/02/2021 09:20:20 Medical History Condition Response Diabetes N Sexually Transmitted Infection N Other Y Bleeding Disorder N High Blood Pressure Y Kidney Stones N Cancer N Lung Disease N Depression N High Cholesterol Y GERD/Acid Reflux N Heart Disease N Past Encounters Encounter ID Performer Location Encounter Start Date Encounter Closed Date Diagnosis/Indication Diagnosis SNOMED-CT Code Diagnosis ICD10 Code [id number] Luis F Ponce MD [facility] th [address] [place] [address],[address] [place] [address] 08/19/2021 13:29:17 08/22/2021 16:12:41 Prostate specific antigen above reference range 101774510 R97.20 Lower urin jcarlos tract symptoms due to benign prostatic hypertrophy 2287718894 9101 N40.1 [id number] Medardo Burgess MD [facility] [address] [place] [phone] 09/02/2021 09:17:27 09/05/2021 10:09:58 Prostate specific antigen above reference range 792772871 R97.20 Lower urin jcarlos tract symptoms due to benign prostatic hypertrophy 0766490278 9101 N40.1 Malignant tumor of prostate 117794166 C61 Health Concerns Section Related Observation LastModified by Organization Detai ls LastModified Time None Recorded Concern Status LastModified by Organization Details LastModified Time None Recorded Advance Directives Directive None Recorded Payers Encounter Date Sequence Insurance Name Policy Number Policy Haji Covered Member ID Haji Member ID Guarantor Name 08/19/2021 1 [place] [employer] Declan Alexanders [id number] Declan Alexanders 08/19/2021 2 CRAVE Declan Alexanders [id number] Declan Ann Henmarlos 09/02/2021 1 [place] [employer] Declan Alexanders [id number] Declan Ann Henmarlos 09/02/2021 2 CRAVE Declan Alexanders [id number] Declan Guy Notes Date Note Type Note Provider Name and Address Organization Details Recorded Time 08/19/2021 text/html 76 yo male (philip ent of Dr. Adrian Haskins) -noted to have elevated PSA and abnormal ZAIN (1 cm nodule at apex, just Left of midline). Prostate MRI (04/19/21) revealed a PI-RADS 4 lesion at the Right apex. He is on Flomax 0.4 mg daily. Voiding symptoms: weak urinary stream, nocturia 4-5x/night, urgency.- Currently maintained on tamsulosin. Family history of prostate cancer: None 08/19/21 - He was referred by Dr. Burgess for a URONAV bx of the prostate. He notes no change in urination. He voids every 1-2 hours during the day and 4-5x/night. He notes hesitancy and slow stream. PSA History:5.41 ng/mL .57 ng/mL .79 ng/mL4.3 ng/mL 39779.8 ng/mL 2017 Prostate MRI (04/19/21) - 39 gm- Lesion 1 - (PI-RADS 4) - 1.4 x 1.0 cm - Right apex (PZ) - 6-7 o'clock Luis F Fadden, MD [address] [place] [address],[address], [place], [address], [place] [facility] 08/19/2021 17:01:22 09/02/2021 text/html This visit was conducted by telephone due to the COVID-19 crisis. Prior to conducting our telephone visit, the patient was apprised of the risks, benefits and alternatives to telephone visits including but not limited to poor audio quality, interrupted visits due to technological limitations, delays in medical evaluation and treatment due to deficiencies or failures of equipment, failure of security protocols resulting in a breach of privacy of personal medical information and a lack of access to complete medical records resulting in not fully informed decisions. Also, because of the COVID-19 pandemic, it was not possible for the patient to sign the privacy regulations, HIPAA release and assignment of benefits forms. The patient was given the opportunity to ask questions about these policies and gave verbal acknowledgement and approval of these policies as well as to hold this meeting by telephone. Lastly, the patient agreed to allowing their medication history to be pulled from a national pharmacy database to facilitate and coordinate their care. 76 yo male (patient of Dr. Adrian Haskins) -noted to have elevated PSA and abnormal ZAIN (1 cm nodule at apex, just Left of midline). Prostate MRI (04/19/21) revealed a PI-RADS 4 lesion at the Right apex. He is on Flomax 0.4 mg daily. Voiding symptoms: weak urinary stream, nocturia 4-5x/night, urgency.- Currently maintained on tamsulosin. Family history of prostate cancer: None 08/19/21 - He was referred by Dr. Burgess for a URONAV bx of the prostate. He notes no change in urination. He voids every 1-2 hours during the day and 4-5x/night. He notes hesitancy and slow stream. PSA History:5.41 ng/mL .57 ng/mL .79 ng/mL4.3 ng/mL 59000.8 ng/mL 2017 Prostate MRI (04/19/21) - 39 gm- Lesion 1 - (PI-RADS 4) - 1.4 x 1.0 cm - Right apex (PZ) - 6-7 o'clock 09/02/2021:Here to discuss biopsy results. We are joined by his and daughter. Medardo Burgess MD [address] [place] [address],[facility] [address], [place], [address], [facility] 09/02/2021 10:23:28
--- OUTSIDE RECORDS SUMMARY | 2024-06-27 07:30 | XMS_ITS ---
Author Organization [facility] Address [address] [place] [address] Care Team Providers Care Inspector Floor Sub Assembly Name Role Phone Unavailable Primary Care Provider Unavailabl e Active Problems * This document contains information received from the source organization and may not represent a complete record from that organization. Problem Noted Date Diagnosed Date Primary Malignant [...] Treated Prescribed Fraction Dose Prescribed Total Dose [id number] 01/11/2022 36 26 of 26 270 cGy 7,020 cGy Reference Point Last Treated On Elapsed Days Session Dose Total Dose [id number] 01/11/2022 36 270 cGy 7,020 cGy
--- OUTSIDE RECORDS SUMMARY | 2024-06-27 07:30 | XMS_ITS ---
Author Organization [facility] Address [address] [place] [address] Care Team Providers Care Grocery Caddy Name Role Phone Unavailable Unavailable Unavailable Surgery Details Not on file Complications Check Surgery Details section. Procedure Estimated Blood Loss Check Surgery Details section. Procedure Findings Check Surgery Details section. Procedure Specimens Taken Check Surgery Details section.
--- OUTSIDE RECORDS SUMMARY | 2024-06-27 07:30 | XMS_ITS | Clinical Summary ---
Author Organization [facility] Address [address] [place] [address] Care Team Providers Care Preservationist Name Role Phone Unavailable Primary Care Provider Unavailabl e Source Comments Patient records contain information from all sites at [facility]. For routine questions regarding patient records, call [phone] during business hours, M-F 8:00 AM - 5:00 PM Central Time. Record requests for emergency care only can be directed to [phone] at any time.[facility] Allergies No known active allergies Medications * This document contains information received from the source organization and may not represent a complete record from that organization. allopurinoL (ZYLOPRIM) 300 mg tablet Take 300 mg by mouth daily. 1 Active rosuvastatin (CRESTOR) 20 mg tablet rosuvastatin 20 mg tablet 1 Active tamsulosin (FLOMAX) 0.4 mg 24 hr capsule tamsulosin 0.4 mg capsule TAKE 2 TABLETS BY MOUTH EVERY DAY 1 Active aspirin [address] tablet Take 81 mg by mouth daily. 1 Active levothyroxine (SYNTHROID, LEVOTHROID) 100 mcg tablet Synthroid 100 mcg tablet 1 Active omega-3 fatty acids-fish oil 300-1,000 mg per capsule Take 2 g by mouth daily. Active multivitamin capsule Take 1 capsule by mouth daily. Active calcium carbonate-vitam in D3 1,250 mg (500 mg calcium)-5 mcg (200 Unit) per tablet Take 1 tablet by mouth 2 (two) times a day with meals. Active metoprolol succinate (Toprol XL) 25 mg 24 hr tablet Take 1 tablet by mouth daily. 4 Active Active Problems Problem Noted Date Diagnosed Date Primary Malignant Neoplasm Of Prostate 2 Cancer Staging:Clinical stage from 08/19/2021:Stage IIC(cT2a, cN0, cM0, PSA: 11.2, Grade Group: 4) - Signed by Branden Fermin M.D., M.S. on 11/24/2021 Family History Medical History Relation Name Comments [...] alcohol) 2-3 wine or beer per week [facility] [employer] Answer Date Recorded In the past 12 months has [facility], gas, oil, or water [employer] threatened to shut off services in your [...] How often do you attend chur or scientologist services? More than 4 times per year 09/04/2022 Do you belong to any clubs o r organizations such as rastafarian groups, unions, fraternal or athletic groups, or [...] and heating? Not hard at all 09/04/2022 [facility] [place] [facility] - Occupational Stress [...] your living situation today? I have a [facility] place to live 01/09/2024 Education Answer Date Recorded What is the highest level of school you have completed or the highest degree you have received? Professional school degree (e.g., MD, DDS, DVM, EDUARD) 11/20/2021 Sex and Gender Information Value Date Recorded Sex Assigned at Male 11/20/2021 12:34 PM CDT Legal Sex Male 12:28 PM CDT Gender Identity Male 11/20/2021 12:34 PM CDT Sexual Orientation Straight 11/20/2021 12 :34 PM CDT Last Filed Vital Signs Vital Sign Reading Time Taken Comments Blood Pressure 156/77 01/14/2024 8:51 AM CDT Pulse 56 01/14/2024 8:51 AM CDT Temperature 36.3 C (97.3 F) 01/14/2024 8:51 AM CDT Respiratory Rate - - Oxygen Saturation 97% 11/22/2021 3:08 PM CDT Inhaled Oxygen Concentration - - Weight 94.4 kg (208 lb 1.8 oz) 01/14/2024 8:51 A M CDT Height - - Body Mass Index - - Plan of Treatment Health Maintenance Due Date Last Done Comments Thyroid Stimulating Hormone (TSH) test for thyroid function 1944 DTaP,Tdap,and Td Vaccines (1 - Tdap) 02/26/2014 02/25/2014, 01/27/2004 Pneumococcal vaccine (50+ years) (2 of 2 - PPSV23) 10/27/2015 09/01/2015, 05/14/2014 RSV vaccine - (32-36 [...] on patient's age to complete this topic IPV Vaccines Aged Out No longer eligi ble based on patient's age to complete this topic Medical Devices Implanted Type Area Review Analyst Device Identifier Shelf Expiration Date Model / Serial / Lot Marker Tissue Biomarc Kv 1x5 - [id number] Implanted:Qty : 4 on 11/22/2021 by Adrian Ortiz M.D. at [facility] Marker [facility] [id number] 03/17/2026 [id number] / / [id number] [address] [facility] [email or web address]
--- OUTSIDE RECORDS SUMMARY | 2024-06-27 07:30 | XMS_ITS | Clinical Summary ---
Author Organization [facility] Address [place], [place] [address] Care Team Providers Care Cleat Layer Name Role Phone Adrian Haskins MD Primary Care Provider [phone] Allergies No known active allergies Medications amLODIPine (NORVASC) 5 mg tablet Take 5 [...] g by mouth once daily. Active multivit 45-jmey-oooekj 6-dha 29 mg iron-1 mg -300 mg cap Take 1 Capsule by mouth once daily. Active aspirin (ECOTRIN) 81 mg enteric coated tablet Take 1 Tablet (81 mg) by mouth once daily with a meal. 09/04/2023 Active metoprolol succinate (TOPROL XL) 25 mg Sustained-Relea se tabletIndicatio ns:HTN (hypertension), ASHRAF (dyspnea on exertion) Take 1 Tablet (25 [...] Recorded Sex Assigned at Not on file Legal Sex Male 9:46 AM CDT Gender Identity Not on file Sexual Orientation [...] Health Maintenance Due Date Last Done Comments Pneumococcal series for age 50+ (1 of 2 - PCV) 1950 Tdap 1955 Depression screening for age 12+ 1956 Tetanus booster 1964 Zoster (shingles) series for age 50+ (1 of 2) 1994 Medicare Wellness for age 65+ 2009 RSV vaccine for adults or (1 - 1-dose 75+ series) 2019 BMI (ht and wt on same day) for age 18+ 04/13/2022 04/13/2021 COVID-19 vaccine series ( season) 2024 04/11/2022, 04/21/2021, 09/17/2020, Additional history exists Influenza for age 65+ 02/24/2024 Insurance MEDICARE PB ONLY MEDICARE PART B HB ONLY Care Teams Cleat Layer Relationship Specialty Start Date End Date Adrian Haskins MD [address] [place] [phone] PCP - General Family Practice 04/13/21
--- OUTSIDE RECORDS SUMMARY | 2024-06-27 07:30 | XMS_ITS | Referral Summary ---
Author Organization [facility] Address [address] [place] [address] Care Team Providers Care Elevated Work Platform Operator Name Role Phone Unavailable Primary Care Provider Unavailabl e Source Comments Patient records contain information from all sites at [facility]. For routine questions regarding patient records, call [phone] during business hours, M-F 8:00 AM - 5:00 PM Central Time. Record requests for emergency care only can be directed to [phone] at any time.[facility] Allergies No known active allergies Medications * [...] alcohol) 2-3 wine or beer per week [facility] Utilities Answer Date Recorded In the past 12 months has e [employer], gas, oil, or water [employer] threatened to shut off services in your [...] How often do you attend chur or adventist services? More than 4 times per year 09/04/2022 Do you belong to any clubs o r organizations such as tenriism groups, unions, fraternal or athletic groups, or [...] and heating? Not hard at all 09/04/2022 [facility] Health - Occupational [...] your living situation today? I have a [facility] [employer] place to live 01/09/2024 Education Answer Date [...] on file Medical Devices Implanted Type Area Compound Coating Machine Offbearer Device Identifier Shelf Expiration Date Model / Serial / Lot Marker Tissue Biomarc Kv 1x5 - [id number] Implanted:Qty : 4 on 11/22/2021 by Adrian Ortiz M.D. at [facility] Marker [facility] [id number] 03/17/2026 [id number] / / [id number] Insurance [place] [id number] MEDICARE [facility]
--- NOTE | 2024-06-27 10:44 | ONC.NURNOTE ---
Pt called to cancel lab appt; he is not able to reschedule at this time and will call us.
[2024-07-01 10:03] LABS: PSA Diagnostic* 0.24 ng/mL (0.10-4.00)
== END 2024-07-08 23:59 | disposition home or self-care (01) ==
LOC: CCIC 09:00
PROVIDERS: Physician Assistant; PCP Family Medicine; Referring Provider Family Medicine; Visit Provider Clinical Nurse Specialist
DX: C61 Malignant neoplasm of prostate (principal)
CPT/HCPCS: 36415; 84153; 84403

== ENCOUNTER 2024-07-18 17:46 | Emergency (ER) | payer MEDICARE, OTHER, SELFPAY ==
[2024-07-18 18:30] VITALS: BP 229/109; PULSE 58; RESP 20; TEMP 36.6; O2SAT 97; BMI 35.2
--- OUTSIDE RECORDS SUMMARY | 2024-07-18 19:21 | XMS_ITS | Data Portability ---
Author Organization [place] [facility] Address [address] [place] [address] Care Team Providers Care Service Delivery Analyst Name Role Phone ARIELLE ADRIAN Primary Care [...] None recorded. Referral radiation oncologist referral 2021 [facility], [address], [place], [address], 09:50:51 Procedures None recorded. Surgeries None recorded. Imaging [place], bone scan, whole body [address] [facility], [address] [place], [address], 08:44:22 CT, abdomen + pelvis, w/ contrast [address] [facility], [address] [place], [address], 2 08:44:22 Medication Orders ceftriaxon e 1 [...] whole body No observ ation record ed. [address] [facility] [address] [facility], [place], [address], 10/10/2021 16:45:47 09/22/19 22 09/20/2021 CT, abdom en + pelvi s, w/ contr ast No observ ation record ed. [address] [facility] [address] [facility], [place], [address], 10/10/2021 16:45:47 Result Notes None recorded. Procedures Surgical History Date Name Laterality Status Provider Name and Address Organization Details Recorded Time 2 Prostate Biopsy Procedure completed Luis F Ponce MD [address] [place] [address],[address], [phone], [facility] 08/19/2021 14:17:38 2 URONAV completed Luis F Ponce MD [address] [place] [address],[address], [phone], [facility] 08/19/2021 11:33:00 Imaging Results Imaging Date Name Status LastModified by Organiz ation Details LastModified Time 04/19/2021 MRI, prostate, w/wo contrast completed [email or web address] Information not available 09/14/2021 12:39:12 09/20/2021 NM, bone scan, whole body completed [address] [facility] [address], [place], [address], 10/10/2021 16:45:47 09/20/2021 CT, abdomen + pelvis, w/ contrast completed [address] [facility] [address], [place], [address], 10/10/2021 16:45:47 Procedure Notes None recorded. Medical [...] Not Available Vitals Date Recorded Body height Provider Name an d Address Organization Details Last Updated DateTime 09/02/2021 170.18 cm Jayde MARIO - [facility] 09/02/2021 09:25:04 Date Recorded Body mass index (BMI) Body weight Provider Name and Address Organization Details Last Updated DateTime 09/02/2021 31.3 kg/m2 35449.47 g Jayde Randhawa [place] - [facility] 09/02/2021 09:25:11 Social History Question Answer Notes LastModified by Organizat ion Details LastModified Time Tobacco Smoking Status Never Smoker Jayde FABIANO [place] - [facility] 09/02/2021 09:21:27 What Is Your Level [...] available 09/02/2021 09:20:20 Medical History Condition Response Other Y High Blood Pressure Y Kidney Stones N Depression N Lung Disease N GERD/Acid Reflux N Sexually Transmitted Infection N Cancer N High Cholesterol Y Diabetes N Bleeding Disorder N Heart Disease N Past Encounters Encounter ID Performer Location Encounter Start Date Encounter Closed Date Diagnosis/Indication Diagnosis SNOMED-CT Code Diagnosis ICD10 Code Diagnosis Note [id number] Luis F Ponce MD [facility] [address] [place] [address],[address] [place] [address] 08/19/2021 13:29:17 08/22/2021 16:12:41 Prostate specific antigen above reference range [id number] R97.20 1. Elevated PSA / Prostate nodule- Prostate MRI (04/19/21) - PI-RADS 4 lesion at the Right apex- s/p UroNav bx with sextant bxs today- complete course of antibiotic s- will Follow-up with Dr. Burgess with results Lower urin jcarlos tract symptoms due to benign prostatic hypertrophy [id number] 9101 N40.1 2. BPH- has obstructiv e urinary symptoms- continue Flomax 0.4 mg daily- Dr. Burgess will readdress after bx results are known [id number] Medardo Burgess MD [facility] [address] [place], [place] [address] 09/02/2021 09:17:27 09/05/2021 10:09:58 Prostate specific antigen above reference range 010127432 R97.20 1. Elevated PSA / Prostate nodule- Prostate MRI (04/19/21) - PI-RADS 4 lesion at the Right apex- s/p UroNav bx with sextant bxs today Lower urin jcarlos tract symptoms due to benign prostatic hypertrophy 2810911545 9101 N40.1 2. BPH- has obstructiv e urinary symptoms- continue Flomax 0.4 mg daily Malignant tumor of prostate 206469019 C61 - Staging work up- Radiation consultati on Health Concerns Section Related Observation LastModified by Organization Detai ls LastModified Time None Recorded Concern Status LastModified by Organization Details LastModified Time None Recorded Advance Directives Directive None Recorded Payers Encounter Date Sequence Insurance Name Policy Number Policy Haji Covered Member ID Haji Member ID Guarantor Name 08/19/2021 1 [place] [employer] Declan W Henrichs [id number] Declan W Henrichs 08/19/2021 2 [employer] Declan W Henrichs [id number] Declan W Henrichs 09/02/2021 1 [place] [employer] Declan W Henrichs [id number] Declan W Henrichs 09/02/2021 2 [employer] Declan W Henrichs [id number] Declan W Henrichs Notes Date Note Type Note Provider Name [...] History:5.41 ng/mL .57 ng/mL .79 ng/mL4.3 ng/mL 68987.8 ng/mL 2017 Prostate MRI (04/19/21) - 39 gm- Lesion 1 - (PI-RADS 4) - 1.4 x 1.0 cm - Right apex (PZ) - 6-7 o'clock Luis F Ponce MD [address] [place] [address],[facility] [address], [place], [phone] 08/19/2021 17:01:22 09/02/2021 text/html This visit [...] History:5.41 ng/mL .57 ng/mL .79 ng/mL4.3 ng/mL 47730.8 ng/mL 2018 Prostate MRI (04/19/21) - 39 gm- Lesion 1 - (PI-RADS 4) - 1.4 x 1.0 cm - Right apex (PZ) - 6-7 o'clock 09/02/2021:Here to discuss biopsy results. We are joined by his and daughter. Medardo Burgess MD [address] [facility],[address], [place], [address], [facility] - [facility] 09/02/2021 10:23:28
[2024-07-18] MEDS: METOPROLOL SUCCINATE (XL) 25 MG TAB PO (19:49)
--- NOTE | 2024-07-18 19:53 | ED.GENADULT ---
HPI - General Adult General Date Seen: 07/18/24 Chief complaint: Hypertension Stated complaint: Rising blood pressure over past 24hrs Time Seen by Provider: 07/18/24 19:03 Source: patient Mode of arrival: ambulatory Limitations: no limitations History of Present Illness HPI narrative: Patient is an 79-year-old male presenting to the emergency department for hypertension. States he checked his blood pressure this morning early when he went to the bathroom and he noticed it was elevated. Checked his blood pressure a couple more times throughout the day and it got elevated up above 220. He spoke to the triage line and was told to come to the emergency department for evaluation. Thought he might have felt palpitations but otherwise states he has been asymptomatic. Denies lightheadedness, dizziness, weakness, numbness, chest pain, shortness of breath, abdominal pain. States he recently stopped taking Flomax due to cataract surgery about a week and half ago. Takes metoprolol 25 mg daily for his blood pressure. Denies missing any doses. States his blood pressure has never been this high before. States he feels otherwise asymptomatic Related Data Home Medications ?Medication ?Instructions ?Recorded ?Confirmed multivitamin 1 tab PO DAILY 10/03/22 07/18/24 calcium 500 mg (as 1 tab PO BID 08/18/23 07/18/24 carbonate)-vitamin D3 10 mcg (400 unit) tablet (Calcium 500 + D) omega 1-cyt-hmb-fish oil 1,000 mg 2 cap PO DAILY 08/18/23 07/18/24 (120 mg-180 mg) capsule (Fish Oil) Previous Rx's ?Medication ?Instructions ?Recorded allopurinol 300 mg tablet 300 mg PO DAILY #90 tabs 04/01/24 aspirin 81 mg tablet,delayed 81 mg PO DAILY #90 tabs 04/01/24 release levothyroxine 100 mcg tablet 100 mcg PO DAILY #90 tabs 04/01/24 (Synthroid) metoprolol succinate 25 mg 25 mg PO QDAY #90 tabs 04/01/24 tablet,extended release 24 hr rosuvastatin 20 mg tablet 20 mg PO DAILY #90 tabs 04/01/24 tamsulosin 0.4 mg capsule 0.8 mg (2 x 0.4 mg) PO DAILY #180 04/01/24 caps Allergies Allergy/AdvReac Type Severity Reaction Status Date / Time No Known Drug Allergies Allergy Verified 07/18/24 18:34 Review of Systems Status of ROS: Reports: 10 or more systems reviewed and unremarkable except as noted in History and below [facility] Medical History Stroke ?I63.9 - Cerebral infarction, unspecified (ICD-10) Elevated cholesterol ?E78.00 - Pure hypercholesterolemia, unspecified (ICD-10) Fever ?R50.9 - Fever, unspecified (ICD-10) Paronychia of right thumb ?L03.011 - Cellulitis of right finger (ICD-10) Hiatal hernia ?K44.9 - Diaphragmatic hernia without obstruction or gangrene (ICD-10) Gout ?M10.9 - Gout, unspecified (ICD-10) Vision loss of right eye ?H54.61 - Unqualified visual loss, right eye, normal vision left eye (ICD-10) 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.20 - Lesion of ulnar nerve, unspecified upper limb (ICD-10) Sebaceous gland hyperplasia of face ?L73.8 - Other specified follicular disorders (ICD-10) Sacroiliac joint dysfunction ?M53.3 - Sacrococcygeal disorders, not elsewhere classified (ICD-10) 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79 - Personal history of other diseases of the circulatory system (ICD-10) History of adenomatous polyp of colon ?Z86.010 - Personal history of colonic polyps (ICD-10) Surgical History History of tonsillectomy ?Z90.89 - Acquired absence of other organs (ICD-10) History of inguinal hernia repair ?Z98.890 - Other specified postprocedural states (ICD-10) ?Z87.19 - Personal history of other diseases of the digestive system (ICD-10) History of colonoscopy with polypectomy ?Z98.890 - Other specified postprocedural states (ICD-10) ?Z86.010 - Personal history of colonic polyps (ICD-10) History of cholecystectomy ?Z90.49 - Acquired absence of other specified parts of digestive tract (ICD-10) History of carpal tunnel release ?Z98.890 - Other specified postprocedural states (ICD-10) Family History Mother Bile duct cancer Father Stroke Brother Pulmonary fibrosis Social History Narrative: Health care directive on file- health care directive completed on 04/08/21, reviewed and sent for scanning to medical record on 04/15/21 SOCIAL HISTORY: . Two children. 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 Minimally sexually active. He walks 4 days per week for exercise. HABITS: No tobacco or recreational drug use. Alcohol use is about 2-3 drinks per week. FAMILY HISTORY: Unchanged. Father with stroke. Mother with bile duct cancer. Grandmother with heart disease. What is your current living situation?: I presently have a place to live Problems where you live: no known problems Problems where you live details: none In the past 12 months, utilities in danger of being shut off: no In past 12 months, lack of transportation kept you from medical appts, meetings, work, or getting things needed for daily living: no In the past 12 mos, have been you worried that your food would run out before you had money to buy more?: never true In the past 12 mos, the food you bought just didn't last and you didn't have money to buy more?: never true Highest level of school completed/degree received: Bachelor's degree Smoking Status: Never smoker Do you use any of these nicotine containing products: None Second hand tobacco smoke exposure: No How often do you have a drink containing alcohol: 2-3 times a week Alcohol type: beer and wine How many standard drinks containing alcohol do you have on a typical day: 1 or 2 How often do you have six or more drinks on one occasion: Never AUDIT-C Alcohol total score: 3 Non-prescribed substance use: over the counter (eg: immodium) Non-prescribed substance use details: supplements Caffeine: Yes How often does anyone, including family, friends and others, physically hurt you: never How often does anyone, including family, friends and others, insult or talk down to you: never How often does anyone, including family, friends and others, threaten you with harm: never How often does anyone, including family, friends and others, scream or curse at you: never service: No Exam Const: Vital Signs, click to edit/add: Vital Signs - 24 hr 07/18/24 18:30 Temperature 98 F Pulse Rate [Pulse Oximeter] 58 L Respiratory Rate 20 Blood Pressure [Ri ght Upper Arm] 229/109 H Pulse Oximetry 97 Oxygen Delivery Me thod Room Air Course Vital Signs Vital signs: Initial Vital Signs Temperature 98 F 07/18/24 18:30 Temperature Source Temporal Artery Scan 07/18/24 18:30 Pulse Rate 58 L 07/18/24 18:30 Pulse Rhythm Regular 07/18/24 18:30 Pulse Strength 3+ Normal 07/18/24 18:30 Respiratory Rate 20 07/18/24 18:30 Blood Pressure 229/109 H 07/18/24 18:30 Blood Pressure Mean 149 H 07/18/24 18:30 Blood Pressure Position Sitting 07/18/24 18:30 Pulse Oximetry 97 07/18/24 18:30 Oxygen Delivery Method Room Air 07/18/24 18:30 Vital Signs Temperature 98 F 07/18/24 18:30 Pulse Rate 58 L 07/18/24 18:30 Respiratory Rate 20 07/18/24 18:30 Blood Pressure 229/109 H 07/18/24 18:30 Pulse Oximetry 97 07/18/24 18:30 Oxygen Delivery Method Room Air 07/18/24 18:30 Temperature 98 F 07/18/24 18:30 Pulse Rate 58 L 07/18/24 18:30 Respiratory Rate 20 07/18/24 18:30 Blood Pressure 229/109 H 07/18/24 18:30 Pulse Oximetry 97 07/18/24 18:30 Oxygen Delivery Method Room Air 07/18/24 18:30 Medications Administered Medications: Discontinued Medications Generic Name Dose Route Start Last Admin Trade Name Lisa PRN Reason Stop Dose Admin Metoprolol Succinate 25 mg 07/18/24 19:12 07/18/24 19:49 Metoprolol Succinate (Xl) 25 Mg Tab PO 07/18/24 19:13 25 mg ONCE ONE Administration Medical Decision Making MDM Narrative Medical decision making narrative: Patient is an 79-year-old male presenting to the emergency department for asymptomatic hypertension. I will give him a dose of his blood pressure medication. Since systolic is over 210 current recommendations is to check a creatinine and. I will also do an EKG. Further workup is not necessary per current guidelines ECG Data Attestation: I personally reviewed and interpreted this ECG as follows: Prior ECG tracings: available for review Interpretation: Sinus rhythm with the rate of 62 beats per minute, normal intervals, normal axis, no ST or T-wave abnormalities. Appears similar previous EKG on file Discharge Plan Discharge Clinical Impression: Hypertension Qualifiers: Hypertension type: unspecified Qualified Code(s): I10 - Essential (primary) hypertension Patient Disposition: Home, Self-Care Condition: Stable Instructions: Hypertension (ED) Additional Instructions: Return to emergency department if he started developing chest pain, shortness of breath, localized weakness or numbness, severe sharp upper back or any other concerning symptoms. Have close follow-up with the primary care provider about your blood pressure. Prescriptions: No Action multivitamin Tablet 1 tab PO DAILY allopurinol 300 mg tablet 300 mg PO DAILY Qty: 90 3RF levothyroxine [Synthroid] 100 mcg tablet 100 mcg PO DAILY Qty: 90 3RF metoprolol succinate 25 mg tablet extended release 24 hr 25 mg PO QDAY Qty: 90 3RF rosuvastatin 20 mg tablet 20 mg PO DAILY Qty: 90 3RF tamsulosin 0.4 mg capsule 0.8 mg PO DAILY Qty: 180 3RF aspirin 81 mg tablet,delayed release (DR/EC) 81 mg PO DAILY Qty: 90 3RF calcium carbonate-vitamin D3 [Calcium 500 + D] 500 mg-10 mcg (400 unit) tablet 1 tab PO BID omega 4-xxj-agq-fish oil [Fish Oil] 1,000 mg (120 mg-180 mg) capsule 2 cap PO DAILY Follow Up/Referrals: Adrian Haskins MD [Primary Care Provider] - Stand Alone Forms: [employer] Info Instructions
[2024-07-18 20:39] VITALS: BP 219/115; PULSE 59; RESP 18; O2SAT 97; O2SAT 99
[2024-07-18 20:43] LABS: Chloride* 103 mmol/L (96-114); Potassium* 3.8 mmol/L (3.6-5.1); Sodium* 138 mmol/L (135-149)
[2024-07-18 20:46] LABS: Est. Creatinine Clearance* 55.08; Estimated Glomerular Filt Rate 76 ml/min
[2024-07-18 20:47] LABS: Anion Gap 9 mEq/L (7-15); Blood Urea Nitrogen* 19 mg/dL (7-30); Calcium* 9.6 mg/dL (8.4-10.6); Carbon Dioxide* 26 mmol/L (20-32); Glucose* 116 mg/dL (60-115)
[2024-07-18 20:58] VITALS: BP 182/103
== END 2024-07-18 21:00 | disposition home or self-care (01) ==
PROVIDERS: Emergency Provider Student in an Organized Health Care Education/Training Program; PCP Family Medicine
DX: I10 Essential (primary) hypertension (principal)
CPT/HCPCS: 36415; 80048; 93005; 94761; 99283; 99284; A9270

== ENCOUNTER 2024-09-30 09:46 | Outpatient (CLI) | payer MEDICARE, OTHER, SELFPAY ==
--- NOTE | 2024-09-30 10:00 | CRLHL7_ITS ---
For Patients: As a result of the Century Cures Act, medical imaging exams and procedure reports are released immediately into your electronic medical record. You may view this report before your referring provider. If you have questions, please contact your health care provider. INDICATION: Follow-up pulmonary nodule. TECHNIQUE: Multiplanar CT examination of the chest was performed without the use of intravenous contrast. COMPARISON: CT chest 03/25/2024. FINDINGS: Lower neck: The visualized thyroid is unremarkable. Cardiovascular: Heart size is normal. Thoracic aorta and pulmonary artery are normal in caliber. Mild atherosclerotic calcifications of the aortic arch. Coronary arterial calcifications. 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 No pathologic mediastinal or hilar lymphadenopathy by size criteria. Lungs: No focal consolidation. Minimal interval growth of a left upper lobe nodule, now measuring 10 mm (3:21), previously 9 mm when measured utilizing a similar technique. Stable left lower lobe nodule measuring 4 mm. Pyramidal shaped nodule measuring 5 mm abutting the right major fissure (3:49), likely a benign intrapulmonary lymph node., Stable. No new pulmonary nodules identified. Dependent atelectasis. Linear bandlike opacification of the lung bases bilaterally, likely subsegmental atelectasis and/or scarring. Airways: The trachea remains patent and midline. Mild diffuse peribronchial wall thickening. Pleura: No pleural effusions or pneumothorax. Chest wall: Mild gynecomastia. Bones: No acute osseous abnormalities. Mild degenerative changes of the thoracic spine. Upper abdomen: No acute findings in the visualized upper abdomen. Cholecystectomy. IMPRESSION: 1. Minimal interval growth of a left upper lobe nodule measuring 10 mm, previously 9 mm when measured utilizing a similar technique. Recommend further evaluation with short interval follow-up in 3-6 months, and/or PET-CT. 2. The remaining previously visualized pulmonary nodules are grossly unchanged. No new nodules identified. No pathologic lymphadenopathy. 3. 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 Please note that all CT scans at this facility use dose modulation, iterative reconstruction, and/or weight-based dosing when appropriate to reduce radiation dose to as low as reasonably achievable. Dictated by Magdaleno Scott MD @ 09/30/2024 8:38:12 PM (Electronically Signed)
== END 2024-09-30 09:47 | disposition home or self-care (01) ==
LOC: CT 09:47
PROVIDERS: PCP Family Medicine; Visit Provider Family Medicine
DX: R91.1 Solitary pulmonary nodule (principal); K44.9 Diaphragmatic hernia without obstruction or gangrene
CPT/HCPCS: 71250

== ENCOUNTER 2025-03-31 07:55 | Outpatient (CLI) | payer MEDICARE, OTHER, SELFPAY | END 2025-03-31 07:56 | disposition home or self-care (01) | LOC: NFLDREF 04-13 01:38 | PROVIDERS: PCP Family Medicine; Referring Provider Family Medicine; Visit Provider Family Medicine | DX: D64.9 Anemia, unspecified (principal); E03.9 Hypothyroidism, unspecified; K92.1 Melena; R53.83 Other fatigue; I12.9 Hypertensive chronic kidney disease with stage 1 through stage 4 chronic kidney disease, or unspecified chronic kidney disease; N18.9 Chronic kidney disease, unspecified; Z12.5 Encounter for screening for malignant neoplasm of prostate | CPT/HCPCS: 80053; 80061; 84443; G0103 ==

== ENCOUNTER 2025-04-08 14:44 | Outpatient (CLI) | payer MEDICARE, OTHER, SELFPAY ==
--- NOTE | 2025-04-08 15:00 | CRLHL7_ITS ---
For Patients: As a result of the Century Cures Act, medical imaging exams and procedure reports are released immediately into your electronic medical record. You may view this report before your referring provider. If you have questions, please contact your health care provider. INDICATION: Lung nodule. TECHNIQUE: CT chest without contrast. COMPARISON: September 30, 2024. FINDINGS: Lungs and pleura: Stable 10 mm left upper lobe nodule series 3, image 21. Stable 4 mm left lower lobe nodule series 3, image 65. Stable 3 mm peripheral right lower lobe nodule series 3, image 62. no pleural effusions, pleural thickening, or pneumothorax. Heart and vasculature: Heart size is normal. Thoracic aorta and pulmonary artery are normal in caliber. Lymph nodes/mediastinum: No mediastinal, hilar, or axillary adenopathy. 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 Chest wall: No masses. Upper abdomen: No significant findings. Bones: Unremarkable for age. IMPRESSION: No changes compared to the prior exam. Stable pulmonary nodules including a dominant 10 mm left upper lobe nodule. No new or worsening findings. Please note that all CT scans at this facility use dose modulation, iterative reconstruction, and/or weight-based dosing when appropriate to reduce radiation dose to as low as reasonably achievable. Dictated by Dionisio Lucio MD @ 04/12/2025 8:22:59 AM (Electronically Signed)
== END 2025-04-08 14:45 | disposition home or self-care (01) ==
LOC: CT 14:46
PROVIDERS: PCP Family Medicine; Visit Provider Family Medicine
DX: R91.1 Solitary pulmonary nodule (principal)
CPT/HCPCS: 71250

== ENCOUNTER 2025-05-14 07:53 | Outpatient (CLI) | payer MEDICARE, OTHER, SELFPAY ==
--- NOTE | 2025-05-14 09:29 | P.ANES_ITS ---
Anesthesia Charges Start Date/Time Anesthesia Start Date: 05/14/25 Anesthesia Start Time: 08:46 Stop Date/Time Anesthesia Stop Date: 05/14/25 Anesthesia Stop Time: 09:27 Coding CPT Codes CPT Codes: ANES LWR INTST NDSC NOS - 94882 ([id number]) P3 - PATIENT W/SEVERE SYS DISEASE, QK - PHOTO MASK PROCESSOR 2-4 CNCRNT ANES PROC, QX - RECORDS ASSISTANT SVC W/ MD MED DIRECTION
--- NOTE | 2025-05-14 09:29 | W.ANESCHARGE ---
Anesthesia Charges Start Date/Time Anesthesia Start Date: 05/14/25 Anesthesia Start Time: 08:46 Stop Date/Time Anesthesia Stop Date: 05/14/25 Anesthesia Stop Time: 09:27 Coding CPT Codes CPT Codes: ANES LWR INTST NDSC NOS - 64910 ([id number]) P3 - PATIENT W/SEVERE SYS DISEASE, QK - ENGINEER ASSISTANT 2-4 CNCRNT ANES PROC, QX - LAUNDRY CLERK SVC W/ MD MED DIRECTION
--- NOTE | 2025-05-14 10:22 | W.ANESCHARGE ---
Anesthesia Charges Start Date/Time Anesthesia Start Date: 05/14/25 Anesthesia Start Time: 08:46 Stop Date/Time Anesthesia Stop Date: 05/14/25 Anesthesia Stop Time: 09:27 Summary Extremes of Age - Over 70 or under 1: MDA Coding CPT Codes CPT Codes: ANES LWR INTST NDSC NOS - 65388 ([id number]) QK - CONSUMER LENDER 2-4 CNCRNT ANES PROC, QX - COLLAR TAILOR SVC W/ MD MED DIRECTION, P3 - PATIENT W/SEVERE SYS DISEASE Additional Codes: Summary - Extremes of Age - Over 70 or under 1: MDA ([id number])
== END 2025-05-14 07:54 | disposition home or self-care (01) ==
LOC: OP CLINIC 07:54
PROVIDERS: PCP Family Medicine; Visit Provider Surgery
DX: K92.1 Melena (principal); D12.2 Benign neoplasm of ascending colon; D12.3 Benign neoplasm of transverse colon; K64.8 Other hemorrhoids; K57.30 Diverticulosis of large intestine without perforation or abscess without bleeding
CPT/HCPCS: 00811; 45385; 99100; J2704